=== PATIENT | male | born 1965 | race Two or more races ===

== ENCOUNTER 2019-10-12 17:48 | Inpatient (IN) | payer MEDICAID, OTHER ==
[~2019-10-12] VITALS: Ht 165.1 cm; Wt 73.9 kg
[2019-10-12 18:15] VITALS: BP 103/64
--- NOTE | 2019-10-12 18:18 | NUR ---
ED Nurse Note: Pt came in from snf accompanied by care provider d/t high blood sugar. Care provider checked his sugar at the home and the glucometer said "high." Pt is developmentally delayed, A+Ox2 @ baseline. Respirations are even and unlabored on room air. Vitals stable as documented.
[2019-10-12] MEDS ORDERED: ACTOS15 MG ORAL (18:35)
[2019-10-12] MEDS ORDERED: LEVAQUIN500 MG ORAL (18:35)
[2019-10-12] MEDS ORDERED: DEPAKOTE250 MG PO ×3 (18:35→18:38)
[2019-10-12] MEDS ORDERED: GLYBURIDE METFORMIN PO (18:35)
[2019-10-12] MEDS ORDERED: BENAZEPRIL HCL10 MG ORAL (18:35)
[2019-10-12] MEDS ORDERED: ZOLPIDEM TARTRA10 MG ORAL (18:35)
[2019-10-12] MEDS ORDERED: PRAVASTATIN SOD20 M1 ORAL (18:35)
[2019-10-12] MEDS ORDERED: KLONOPIN0.5 MG ORAL (18:35)
[2019-10-12] MEDS ORDERED: LEVOTHYROXINE75 MCG ORAL (18:38)
[2019-10-12] MEDS ORDERED: ATIVAN2 MG ORAL (18:38)
[2019-10-12] MEDS ORDERED: METFORMIN HCL1000 M1 ORAL (18:38)
--- NOTE | 2019-10-12 19:07 | NUR ---
HAND-OFF: Report given to YUN Kern. Pt in stable condition; plan of care endorsed.
--- NOTE | 2019-10-12 19:10 | NUR ---
ED Nurse Note: Recieved report from Janneth MALCOLM.
[2019-10-12 19:16] VITALS: BP 105/60
[2019-10-12 19:26] LABS: HEMATOCRIT 36.7 % (42.0-52.0); HEMOGLOBIN 12.2 G/DL (14.2-18.0); LYMPHOCYTES % (AUTO) 10.6 % (20.0-45.0); MEAN CORPUSCULAR VOLUME 91 FL (80-99); MONOCYTES % (AUTO) 17.2 % (1.0-10.0); NEUTROPHILS % (AUTO) 70.2 % (45.0-75.0); PLATELET COUNT 244 K/UL (150-450); RED BLOOD COUNT 4.04 M/UL (4.70-6.10); RED CELL DISTRIBUTION WIDTH 11.9 % (11.6-14.8); WHITE BLOOD COUNT 11.8 K/UL (4.8-10.8)
[2019-10-12 19:32] LABS: ANION GAP 15 mmol/L (5-15); BLOOD UREA NITROGEN 23 mg/dL (7-18); CALCIUM 8.4 MG/DL (8.5-10.1); CARBON DIOXIDE 22 MMOL/L (21-32); CHLORIDE 92 MMOL/L (98-107); SODIUM 129 MMOL/L (136-145)
[2019-10-12 19:37] LABS: ALANINE AMINOTRANSFERASE 37 U/L (12-78); ALBUMIN 2.1 G/DL (3.4-5.0); ALBUMIN/GLOBULIN RATIO 0.5 (1.0-2.7); ALKALINE PHOSPHATASE 46 U/L (46-116); ASPARTATE AMINO TRANSFERASE 52 U/L (15-37); BILIRUBIN,TOTAL 0.4 MG/DL (0.2-1.0)
--- NOTE | 2019-10-12 19:40 | NUR ---
ED Nurse Note: Urine collected and sent to lab.
[2019-10-12 20:19] LABS: BILIRUBIN, URINE NEGATIVE (NEGATIVE); GLUCOSE, URINE (UA) 3+ (NEGATIVE); KETONES,URINE 2+ (NEGATIVE); LEUKOCYTE ESTERASE ,URINE 1+ (NEGATIVE); NITRITE,URINE POSITIVE (NEGATIVE); PH,URINE 5 (4.5-8.0); PROTEIN,URINE 3+ (NEGATIVE); UROBILINOGEN,URINE 1 MG/DL (0.0-1.0)
--- NOTE | 2019-10-12 20:19 | NUR ---
ED Nurse Note: [phone]: Maren (caregiver) [phone]: Juan M (software administrator)
--- NOTE | 2019-10-12 20:29 | Emergency Room Report ---
History of Present Illness General Chief Complaint: Abnormal Labs Source: Patient, Medical Record Present Illness HPI This patient is accompanied by his caregiver. The patient has a history of developmental delay. He resides in a [facility]. The patient has no specific complaints. The history is obtained by the caregiver. He reports that over the past week patient has had uncontrolled blood sugars. He states that he has been to multiple urgent cares in different hospitals and will get treated with insulin and then sent back to the [facility] and the next morning his blood sugar will go up very high. There is no cough or congestion. There is been no fever or chills. There are no other obvious symptoms. The patient is developmentally delayed and cannot give a full history. However he is verbal and can express simple thoughts and answer questions. Allergies: Coded Allergies: No Known Allergies (Unverified , 10/12/19) Patient History Past Medical History: see triage record, DM, seizures, other - Developmental delay Social History: Denies: smoking, alcohol use, drug use Reviewed Nursing Documentation: PMH: Agreed; PSxH: Agreed Nursing Documentation-PMH Past Medical History: No History, Except For Hx Diabetes: Yes History Of Psychiatric Problem: Yes - anxiety Hx Seizures: Yes Review of Systems All Other Systems: negative except mentioned in HPI Physical Exam Vital Signs Date Time Temp Pulse Resp B/P (MAP) Pulse Ox O2 Delivery O2 Flow Rate FiO2 10/12/19 18:13 99.0 103 30 103/60 (74) 91 Room Air Sp02 EP Interpretation: reviewed, normal General Appearance: no apparent distress, GCS 15, non-toxic, other - sleepy but easily arousable. Head: normocephalic, atraumatic Eyes: bilateral eye normal inspection ENT: hearing grossly normal, normal pharynx, no angioedema, normal voice Neck: full range of motion, supple/symm/no masses Respiratory: chest non-tender, lungs clear, normal breath sounds, no respiratory distress, no retraction, no accessory muscle use, speaking full sentences Cardiovascular #1: regular rate, rhythm, no edema Gastrointestinal: non tender, soft, non-distended, no guarding, no rebound Rectal: deferred Musculoskeletal: back normal, normal range of motion, non-tender Neurologic: alert, motor strength/tone normal, oriented x3, sensory intact, responsive, speech normal Psychiatric: mood/affect normal, no suicidal/homicidal ideation Skin: no rash, normal color Medical Decision Making Diagnostic Impression: Primary Impression: Uncontrolled diabetes mellitus Additional Impressions: Hyperglycemia Renal failure Hyponatremia Dehydration ER Course This patient at baseline is developmental delay. He resides in a [facility] and it appears that the staff at the [facility] is not sophisticated enough to manage his diabetes. He has been in multiple urgent cares over the past week. The staff and the patient are unable to manage the diabetes as he is getting recurrent hyperglycemia. Likely there is a component of lack of medical expertise in addition to probably poor education on diet. Regardless, the patient is also in renal failure, dehydrated with uncontrolled blood sugars. I feel that at this point it has become dangerous for this patient to continue treatment as an outpatient and may need placement in a higher level facility to help manage his diabetes. He is admitted for uncontrolled diabetes, renal failure and inability to manage as an outpatient. Please see lab results in the electronic medical record. EKG Diagnostic Results Rate: tachycardiac Rhythm: other - S.tachycardia ST Segments: no acute changes Rhythm Strip Diag. Results EP Interpretation: yes Rate: 100's Rhythm: no PVC's, no ectopy, other - S.tachycardia Last Vital Signs Date Time Temp Pulse Resp B/P (MAP) Pulse Ox O2 Delivery O2 Flow Rate FiO2 10/12/19 19:16 97.8 95 20 105/60 97 Room Air Disposition: ADMITTED INPATIENT Condition: Serious Referrals: [facility],REFERRING (PCP) Magda Gilmore DO Oct 12, 2019 20:28
[2019-10-12 20:34] LABS: APPEARANCE,URINE SLIGHTLY CLOUDY; COLOR,URINE YELLOW
[2019-10-12 21:15] VITALS: BP 93/52
--- NOTE | 2019-10-12 21:25 | NUR ---
ED Nurse Note: NS 1L bolus given per ERMD written order.
[2019-10-12 23:27] VITALS: BP 99/68
--- NOTE | 2019-10-13 00:54 | NUR ---
ED Nurse Note: Report given to Gisela MALCOLM from [facility].
[2019-10-13 01:15] VITALS: BP 96/63
--- NOTE | 2019-10-13 01:15 | NUR ---
TRANSFER TO FLOOR: Patient transferred to [facility] unit. Report given to Gisela MALCOLM. Pt alert and orientedx2, verbally responsive. No SOB. Not in any distress. IV line on left AC 20g patent and intact. No skin issues. Med recon done. All belongings given to the patient.
--- NOTE | 2019-10-13 01:28 | NUR ---
NURSE NOTES: Received patient from ER, via gurney, awake, alert x 2, pleasantly confused, developmental delay noted, IV site is clean dry and intact, belongings list been reviewed, signed, items are accounted for. Admit orders are obtained from MD. patient is incontinent of both urine and stool, skin is intact, call light is within reach, bed is lowered ,locked and alarm is on. Will continue to monitor for comfort and safety.
[2019-10-13 04:00] VITALS: BP 122/85
[2019-10-13] MEDS ORDERED: Zolpidem 5mg tab ORAL PRN (04:00)
[2019-10-13] MEDS: metFORMIN 500mg tab ORAL SCH (06:04)
[2019-10-13] MEDS: NovoLOG Insulin Flexpen SUBQ SCH ×4 (06:07→20:40)
--- NOTE | 2019-10-13 07:00 | NUR ---
pt resting in bed. Awake, A/O x 1-2, calm. denies pain. tolerating diet well, no N/V, fall precaution maintained. will continue to monitor.
--- NOTE | 2019-10-13 07:42 | NUR ---
HAND-OFF: Report given to Alina MALCOLM.
[2019-10-13 08:00] VITALS: BP 122/93
[2019-10-13] MEDS ORDERED: Levofloxacin 500mg tab ORAL SCH (09:00)
--- NOTE | 2019-10-13 09:15 | Diagnostic Imaging Report ---
Indication: Dyspnea Technique: One view of the chest Comparison: none Findings: Inspiration is suboptimal. No definite acute infiltrates, effusions, congestion. There are multiple old healed rib fracture deformities bilaterally. The heart size is normal. There are fairly extensive posttraumatic changes of the left shoulder including the glenoid Impression: No acute process. Findings as noted
[2019-10-13] MEDS: clonazePAM 0.5mg tab ORAL SCH ×2 (09:16→17:55)
[2019-10-13] MEDS: Benazepril 10mg tab ORAL SCH (09:17)
[2019-10-13] MEDS: Heparin 5000 units/ml inj SUBQ SCH ×2 (09:20→20:25)
[2019-10-13 12:00] VITALS: BP 139/77
--- NOTE | 2019-10-13 14:14 | Consultation ---
History of Present Illness General Date patient seen: Oct 13, 2019 Chief Complaint: Abnormal Labs Present Illness HPI 54 y/o M with hx of seizure disorder, developmental delay presented to ED on with uncontrolled blood sugars Denied cough, congestion, f/c Allergies: Coded Allergies: No Known Allergies (Unverified , 10/12/19) Medication History Scheduled Benazepril Hcl* (Benazepril Hcl*), 10 MG ORAL DAILY, (Reported) Clonazepam* (Klonopin*), 0.5 MG ORAL TWICE A DAY, (Reported) Divalproex Sodium* (Depakote*), 1,750 MG PO BEDTIME, (Reported) Levofloxacin* (Levaquin*), 500 MG ORAL DAILY, (Reported) Levothyroxine Sodium* (Levothyroxine Sodium*), 75 MCG ORAL DAILY, (Reported) Lorazepam* (Ativan*), 2 MG ORAL DAILY, (Reported) Metformin Hcl* (Metformin Hcl*), 1,000 MG ORAL DAILY, (Reported) Pioglitazone Hcl* (Actos*), 15 MG ORAL DAILY, (Reported) Pravastatin Sod* (Pravastatin Sod*), 20 MG ORAL BEDTIME, (Reported) [glyburide metformin], 2.5-500 MG PO TWICE A DAY, (Reported) Scheduled PRN Zolpidem Tartrate* (Zolpidem Tartrate*), 10 MG ORAL BEDTIME PRN for Insomnia, ( Reported) Discontinued Medications Divalproex Sodium* (Depakote*), 250 MG PO BEDTIME, (Reported) Discontinued Reason: Pt stopped taking med Divalproex Sodium* (Depakote*), 500 MG PO Q12HR, (Reported) Discontinued Reason: Pt stopped taking med Patient History Healthcare decision maker Resuscitation status Full Code Advanced Directive on File No Patient History Narrative Pmhx: as above Fhx: non contributory Sx: Denies: smoking, alcohol use, drug use Review of Systems All Other Systems: negative except mentioned in HPI Physical Exam Physical Exam Narrative General Appearance: no apparent distress Head: normocephalic, atraumatic Eyes: bilateral eye normal inspection ENT: hearing grossly normal, normal pharynx, no angioedema, normal voice Neck: full range of motion, supple/symm/no masses Respiratory: chest non-tender, lungs clear, normal breath sounds, no respiratory distress, no retraction, no accessory muscle use, speaking full sentences Cardiovascular regular rate, rhythm, no edema Gastrointestinal: non tender, soft, non-distended, no guarding, no rebound Musculoskeletal: back normal, normal range of motion, non-tender Neurologic: alert, motor strength/tone normal, oriented x3, sensory intact, responsive, speech normal Skin: no rash, normal color Last 24 Hour Vital Signs Date Time Temp Pulse Resp B/P (MAP) Pulse Ox O2 Delivery O2 Flow Rate FiO2 10/13/19 12:00 99.2 96 20 139/77 (97) 96 10/13/19 09:17 122/93 10/13/19 09:00 Room Air 10/13/19 08:00 98.9 100 20 122/93 (103) 98 10/13/19 04:00 99.0 86 20 122/85 (97) 98 10/13/19 01:28 Room Air 10/13/19 01:15 97.6 95 26 96/63 97 Room Air 10/13/19 01:15 97.6 95 26 96/63 97 Room Air 10/12/19 23:27 97.6 92 18 99/68 98 Room Air 10/12/19 21:15 98.2 86 19 93/52 97 Room Air 10/12/19 19:16 97.8 95 20 105/60 97 Room Air 10/12/19 18:15 98.0 102 20 103/64 92 Room Air 10/12/19 18:13 99.0 103 30 103/60 (74) 91 Room Air Intake and Output 10/12/19 10/13/19 19:00 07:00 Intake Total 0 ml 2000 ml Balance 0 ml 2000 ml Intake Oral 0 ml IV Total 2000 ml Laboratory Tests Test 10/12/19 18:45 10/12/19 19:49 White Blood Count 11.8 K/UL (4.8-10.8) H Red Blood Count 4.04 M/UL (4.70-6.10) L Hemoglobin 12.2 G/DL (14.2-18.0) L Hematocrit 36.7 % (42.0-52.0) L Mean Corpuscular Volume 91 FL (80-99) Mean Corpuscular Hemoglobin 30.3 PG (27.0-31.0) Mean Corpuscular Hemoglobin Concent 33.4 G/DL (32.0-36.0) Red Cell Distribution Width 11.9 % (11.6-14.8) Platelet Count 244 K/UL (150-450) Mean Platelet Volume 6.9 FL (6.5-10.1) Neutrophils (%) (Auto) 70.2 % (45.0-75.0) Lymphocytes (%) (Auto) 10.6 % (20.0-45.0) L Monocytes (%) (Auto) 17.2 % (1.0-10.0) H Eosinophils (%) (Auto) 0.0 % (0.0-3.0) Basophils (%) (Auto) 2.0 % (0.0-2.0) Sodium Level 129 MMOL/L (136-145) L Potassium Level 4.0 MMOL/L (3.5-5.1) Chloride Level 92 MMOL/L (98-107) L Carbon Dioxide Level 22 MMOL/L (21-32) Anion Gap 15 mmol/L (5-15) Blood Urea Nitrogen 23 mg/dL (7-18) H Creatinine 2.0 MG/DL (0.55-1.30) H Estimat Glomerular Filtration Rate 34.9 mL/min (>60) Glucose Level 471 MG/DL (74-106) H Calcium Level 8.4 MG/DL (8.5-10.1) L Magnesium Level 1.6 MG/DL (1.8-2.4) L Total Bilirubin 0.4 MG/DL (0.2-1.0) Aspartate Amino Transf (AST/SGOT) 52 U/L (15-37) H Alanine Aminotransferase (ALT/SGPT) 37 U/L (12-78) Alkaline Phosphatase 46 U/L (46-116) Total Protein 6.6 G/DL (6.4-8.2) Albumin 2.1 G/DL (3.4-5.0) L Globulin 4.5 g/dL Albumin/Globulin Ratio 0.5 (1.0-2.7) L Acetone Level Negative (NEGATIVE) Urine Color Yellow Urine Appearance Slightly cloudy Urine pH 5 (4.5-8.0) Urine Specific [place] 1.015 (1.005-1.035) Urine Protein 3+ (NEGATIVE) H Urine Glucose (UA) 3+ (NEGATIVE) H Urine Ketones 2+ (NEGATIVE) H Urine Blood 4+ (NEGATIVE) H Urine Nitrite Positive (NEGATIVE) H Urine Bilirubin Negative (NEGATIVE) Urine Urobilinogen 1 MG/DL (0.0-1.0) H Urine Leukocyte Esterase 1+ (NEGATIVE) H Urine RBC 5-10 /HPF (0 - 0) H Urine WBC 2-4 /HPF (0 - 0) Urine Squamous Epithelial Cells None /LPF (NONE/OCC) Urine Bacteria Moderate /HPF (NONE) H Microbiology Date/Time Source Procedure Growth Status 10/12/19 20:18 Rectum Received Height (Feet): 5 Height (Inches): 5.00 Weight (Pounds): 170 Medications Current Medications Medications (Trade) Dose Ordered Sig/Kelly Route PRN Reason Start Time Stop Time Status Last Admin Dose Admin Benazepril HCl (Lotensin) 10 mg DAILY ORAL 10/13/19 09:00 11/12/19 08:59 10/13/19 09:17 Clonazepam (KlonoPIN) 0.5 mg TWICE A DAY ORAL 10/13/19 09:00 10/20/19 08:59 10/13/19 09:16 Dextrose (Dextrose 50%) 25 ml Q30M PRN IV Hypoglycemia 10/13/19 04:00 11/12/19 03:59 Dextrose (Dextrose 50%) 50 ml Q30M PRN IV Hypoglycemia 10/13/19 04:00 11/12/19 03:59 Divalproex Sodium (Depakote) 1,750 mg BEDTIME ORAL 10/13/19 21:00 11/12/19 20:59 Heparin Sodium (Porcine) (Heparin 5000 units/ml) 5,000 units EVERY 12 HOURS SUBQ 10/13/19 09:00 11/12/19 08:59 10/13/19 09:20 Insulin Aspart (NovoLOG) BEFORE MEALS AND HS SUBQ 10/13/19 06:30 11/12/19 06:29 10/13/19 12:37 Levothyroxine Sodium (Synthroid) 75 mcg ACBREAKFAST ORAL 10/13/19 06:30 11/12/19 06:29 10/13/19 06:04 Metformin HCl (Glucophage) 1,000 mg ACBREAKFAST ORAL 10/13/19 06:30 11/12/19 06:29 10/13/19 06:04 Pioglitazone HCl (Actos) 15 mg DAILY ORAL 10/13/19 09:00 11/12/19 08:59 10/13/19 09:16 Pravastatin Sodium (Pravachol) 20 mg BEDTIME ORAL 10/13/19 21:00 11/12/19 20:59 Zolpidem Tartrate (Ambien) 5 mg BEDTIME PRN ORAL Insomnia 10/13/19 04:00 10/20/19 03:59 Assessment/Plan Assessment/Plan: Abx: None Assessment: Afebrile Mild leukocytosis, ?UTI -u/a wbc 2-4, nit +, leuk +1 -CXR: No acute process Hyperglycemia OCTAVIA vs CKD seizure disorder developmental delay Plan: -Start empiric Ceftriaxone #1 for probable UTI -f/u cx -Monitor CBC/CMP, temperatures -aspiration precautions Thank you for this consultation. Will continue to follow along with you. Discussed with Roxana Macias M.D. Oct 13, 2019 14:13
[2019-10-13] MEDS: cefTRIAXone 1 GM in D5W 55 ML IVPB SCH (15:41)
[2019-10-13 16:00] VITALS: BP 131/74
--- NOTE | 2019-10-13 16:07 | NUR ---
CASE MANAGEMENT:INITIAL REVIEW 54 YR OLD MALE BIBA FROM HOME CC;ABNORMAL LABS SI;UNCONTROLLED DM. HYPERGLYCEMIA. 97.6 95 26 96/63 97% RA WBC 11.8 NA 129 BUN 23 CREAT 2.0 AST 52 CXR - NO ACUTE PROCESS UA = PROTEIN 3+, GLUC 3+, KETONES 2+, BLD 4+, NITRITE +, RBC 5-10 UA BACTERIA=MODERATE IS;NS BOLUS X1 ADMITTED TO [facility] DCP;HOME
--- NOTE | 2019-10-13 16:54 | NUR ---
pts temp 102.2F left message to DR. Hoffman, waiting for call back.
[2019-10-13 20:00] VITALS: BP 119/71
--- NOTE | 2019-10-13 23:24 | History & Physical ---
History and Physical History & Physicial Ankush Hoffman MD Oct 13, 2019 23:24
[2019-10-14] VITALS: BP 124/70
--- NOTE | 2019-10-14 00:45 | History and Physical Report ---
DATE OF ADMISSION: 10/13/2019 CHIEF COMPLAINT: Uncontrolled glucose. HISTORY OF PRESENT ILLNESS: This is a 54-year-old gentleman with past medical history significant for seizure disorder, hypothyroidism, diabetes type 2, chronic kidney disease with proteinuria, and developmental delay, who presented to the hospital from a group house due to elevated glucose level. The patient was noted for the past week he has been having uncontrolled blood glucose level and multiple urgent care in different hospitals where he got treated with insulin and then go back to the half-way and this morning the patient was noted to have the blood glucose level very high and subsequently the patient was brought into the emergency department. Shortly after initial evaluation in the emergency department, the patient was admitted to the hospital with uncontrolled diabetes and possible urinary tract infection. The patient denies any fever or chills. Denies any nausea or vomiting. Denies any loss of consciousness. PAST MEDICAL HISTORY/PAST SURGICAL HISTORY: As above, history of diabetes type 2, seizure disorder, developmental delay, hypothyroidism, proteinuria, and chronic kidney disease. MEDICATIONS: At home, please refer to medication reconciliation. ALLERGIES: No known drug allergies. SOCIAL HISTORY: No smoking, alcohol, or drugs at this time. FAMILY HISTORY: Noncontributory. REVIEW OF SYSTEMS: Mostly as above. PHYSICAL EXAMINATION: VITAL SIGNS: On admission, temperature 99, pulse of 103, respirations 30, and blood pressure 103/60. GENERAL: The patient is awake and responsive, in no acute distress. HEAD AND NECK: Pupils are equal and reactive to light. Extraocular muscles intact. Neck was supple. No JVD. LUNGS: Good air entry with no wheezing or rales. HEART: S1, S2. Distant heart sounds. No gallops. ABDOMEN: Soft, nondistended, and nontender. Mildly obese. EXTREMITIES: No cyanosis, clubbing, or edema NEUROLOGIC: Cranial nerves II through XII grossly grossly intact. Motor is 5/5 in all extremities. Gait was not assessed due to the patient's status. RECTAL: Refused and deferred. GENITOURINARY: Refused and deferred. PSYCHIATRIC: Mood and affect is calm. LABORATORY DATA: On admission from the emergency department, WBC of 11, hemoglobin of 12, hematocrit 36, and platelets 241,000. Sodium 129, potassium 4.0, chloride 92, bicarb 22, BUN 23, and creatinine 2.0. GFR is 34. Glucose elevated at 471. Magnesium 1.6. Calcium is 8.4. Albumin is 2.1. Urinalysis, +3 protein, +3 glucose, +2 ketone, positive nitrite, +1 leukocytes, 5 to 10 rbc's, moderate bacteria in urine. Acetaminophen level is negative. Chest x-ray, no acute process. ASSESSMENT: 1. Uncontrolled diabetes type 2, possible due to underlying infection such as urinary tract infection. 2. Acute urinary tract infection. 3. Dehydration. 4. Acute kidney injury on chronic renal insufficiency. 5. Proteinuria. 6. Developmental delay. 7. Hypothyroidism. 8. Seizure disorder. 9. Morbid obesity. PLAN: 1. Admit the patient to the medical floor. 2. Start the patient on IV hydration. 3. Accu-Chek with sliding scale. 4. Monitor laboratory. 5. Broad spectrum antibiotic with Rocephin. Follow up with culture. 6. DVT prophylaxis with heparin subcutaneous. 7. We will follow up with the ID consultation with Dr. Gutierrez. Ankush Hoffman M.D. DR: JEROD JOB#: [id number] CC:
[2019-10-14 04:00] VITALS: BP 104/66
[2019-10-14] MEDS: metFORMIN 500mg tab ORAL SCH (05:45)
[2019-10-14] MEDS: NovoLOG Insulin Flexpen SUBQ SCH ×4 (05:46→23:27)
--- NOTE | 2019-10-14 07:08 | NUR ---
NURSE NOTES: RECEIVED REPORT FROM YUN SANDRA TRANSFERRED FROM [facility]. RECEIVED PATIENT A/A/OX2, HAS DELAYED RESPONSE. PERSONAL BELONGINGS NOTED. SKIN ASSESSED AND DISCOVER SKIN BREAKDOWN ON SACRAL STAGE 2, PHOTO TAKEN AND UPLOADED. INITIAL TREATMENT RENDERED. SKIN IS INTACT ON BILATERAL HEELS. PATIENT IS ABLE TO FOLLOW COMMANDS. IV ACCESS PATENT AND INTACT. PATIENT ABLE TO TURN/REPOSITION WITH ASSISTANCE. KEPT BED IN THE LOWEST POSITION, SIDERAILS ARE UP X3, BED ALARM ENGAGED AND LOCKED. CALL LIGHT IS WITHIN REACH. WILL CONT TO MONITOR. Addendum: 10/14/19 at 1619 by MER SCALES LVN NURSE NOTES: INFORMED PMD. Addendum: 10/14/19 at 1656 by MER SCALES LVN SIDERAILS ARE PADDED X4 FOR SEIZURE PRECAUTIONS.
--- NOTE | 2019-10-14 07:16 | NUR ---
NURSE NOTES: Patient is transferred to [facility] report is given to Allison TIN CAN LABORER, temp is 99.0, no acute distress noted, belongings list signed.
[2019-10-14 08:00] LABS: BASOPHILS % (AUTO) 0.5 % (0.0-2.0); HEMATOCRIT 32.5 % (42.0-52.0); HEMOGLOBIN 11.5 G/DL (14.2-18.0); LYMPHOCYTES % (AUTO) 14.3 % (20.0-45.0); MEAN CORPUSCULAR VOLUME 87 FL (80-99); MONOCYTES % (AUTO) 10.1 % (1.0-10.0); NEUTROPHILS % (AUTO) 75.1 % (45.0-75.0); PLATELET COUNT 208 K/UL (150-450); RED BLOOD COUNT 3.72 M/UL (4.70-6.10); RED CELL DISTRIBUTION WIDTH 11.5 % (11.6-14.8)
[2019-10-14 08:02] VITALS: BP 92/53
[2019-10-14] MEDS: Benazepril 10mg tab ORAL SCH (08:05)
[2019-10-14] MEDS: clonazePAM 0.5mg tab ORAL SCH ×2 (08:05→17:07)
[2019-10-14] MEDS: Heparin 5000 units/ml inj SUBQ SCH ×2 (08:09→23:20)
[2019-10-14 08:22] LABS: ALANINE AMINOTRANSFERASE 33 U/L (12-78); ALBUMIN 1.8 G/DL (3.4-5.0); ALBUMIN/GLOBULIN RATIO 0.4 (1.0-2.7); ALKALINE PHOSPHATASE 42 U/L (46-116); ANION GAP 7 mmol/L (5-15); ASPARTATE AMINO TRANSFERASE 50 U/L (15-37); BILIRUBIN,TOTAL 0.3 MG/DL (0.2-1.0); BLOOD UREA NITROGEN 13 mg/dL (7-18); CARBON DIOXIDE 28 MMOL/L (21-32); CHLORIDE 99 MMOL/L (98-107); PHOSPHORUS 2.5 MG/DL (2.5-4.9); POTASSIUM 3.6 MMOL/L (3.5-5.1); SODIUM 134 MMOL/L (136-145)
[2019-10-14] MEDS: cefTRIAXone 1 GM in D5W 55 ML IVPB SCH (08:57)
--- NOTE | 2019-10-14 09:12 | Pulmonology Progress Note ---
Assessment/Plan Problems: (1) UTI (urinary tract infection) (2) Renal failure (3) Uncontrolled diabetes mellitus Assessment/Plan bs better check cultures iv fluids check electrolytes Subjective ROS Limited/Unobtainable: No Allergies: Coded Allergies: No Known Allergies (Unverified , 10/12/19) Objective Last 24 Hour Vital Signs Date Time Temp Pulse Resp B/P (MAP) Pulse Ox O2 Delivery O2 Flow Rate FiO2 10/14/19 08:57 Room Air 10/14/19 08:05 92/53 10/14/19 08:02 99.1 75 18 92/53 (66) 92 10/14/19 07:16 99.0 10/14/19 04:00 103.0 100 21 104/66 (79) 98 10/14/19 00:00 99.0 90 20 124/70 (88) 98 10/13/19 21:37 Room Air 10/13/19 20:00 99.0 98 20 119/71 (87) 98 10/13/19 16:00 102.2 99 20 131/74 (93) 97 10/13/19 12:00 99.2 96 20 139/77 (97) 96 10/13/19 09:17 122/93 Intake and Output 10/13/19 10/14/19 19:00 07:00 Intake Total 600 ml Balance 600 ml Intake Oral 600 ml # Voids 4 General Appearance: WD/WN HEENT: normocephalic, atraumatic Respiratory/Chest: chest wall non-tender, lungs clear Cardiovascular: normal peripheral pulses, normal rate Abdomen: normal bowel sounds, soft, non tender Genitourinary: normal external genitalia Neurologic/Psychiatric: no motor/sensory deficits Microbiology Date/Time Source Procedure Growth Status 10/12/19 19:49 Urine,Clean Catch Urine Culture - Preliminary Gram Negative Abhishek Resulted 10/12/19 20:18 Rectum Received Laboratory Tests 10/14/19 05:30: White Blood Count 14.0H, Red Blood Count 3.72L, Hemoglobin 11.5L, Hematocrit 32.5L, Mean Corpuscular Volume 87, Mean Corpuscular Hemoglobin 31.0, Mean Corpuscular Hemoglobin Concent 35.5, Red Cell Distribution Width 11.5L, Platelet Count 208, Mean Platelet Volume 7.3, Neutrophils (%) (Auto) 75.1H, Lymphocytes (%) (Auto) 14.3L, Monocytes (%) (Auto) 10.1H, Eosinophils (%) (Auto ) 0.0, Basophils (%) (Auto) 0.5, Erythrocyte Sedimentation Rate [Pending], Sodium Level 134L, Potassium Level 3.6, Chloride Level 99, Carbon Dioxide Level 28, Anion Gap 7, Blood Urea Nitrogen 13, Creatinine 1.0, Estimat Glomerular Filtration Rate > 60, Glucose Level 185#H, Calcium Level 8.0L, Phosphorus Level 2.5, Magnesium Level 1.5L, Total Bilirubin 0.3, Aspartate Amino Transf (AST/SGOT ) 50H, Alanine Aminotransferase (ALT/SGPT) 33, Alkaline Phosphatase 42L, C- Reactive Protein, Quantitative 19.4H, Total Protein 6.0L, Albumin 1.8L, Globulin 4.2, Albumin/Globulin Ratio 0.4L Current Medications Medications (Trade) Dose Ordered Sig/Kelly Route PRN Reason Start Time Stop Time Status Last Admin Dose Admin Acetaminophen (Tylenol) 650 mg Q6H PRN ORAL Mild Pain/Temp > 100.5 10/14/19 06:00 11/13/19 05:59 10/14/19 06:22 Benazepril HCl (Lotensin) 10 mg DAILY ORAL 10/13/19 09:00 11/12/19 08:59 10/13/19 09:17 Ceftriaxone Sodium 1 gm/ Dextrose 55 ml @ 110 mls/hr DAILY IVPB 10/13/19 16:00 10/20/19 15:59 10/14/19 08:57 Clonazepam (KlonoPIN) 0.5 mg TWICE A DAY ORAL 10/13/19 09:00 10/20/19 08:59 10/14/19 08:05 Dextrose (Dextrose 50%) 25 ml Q30M PRN IV Hypoglycemia 10/13/19 04:00 11/12/19 03:59 Dextrose (Dextrose 50%) 50 ml Q30M PRN IV Hypoglycemia 10/13/19 04:00 11/12/19 03:59 Divalproex Sodium (Depakote) 1,750 mg BEDTIME ORAL 10/13/19 21:00 11/12/19 20:59 10/13/19 20:24 Heparin Sodium (Porcine) (Heparin 5000 units/ml) 5,000 units EVERY 12 HOURS SUBQ 10/13/19 09:00 11/12/19 08:59 10/14/19 08:09 Insulin Aspart (NovoLOG) BEFORE MEALS AND HS SUBQ 10/13/19 06:30 11/12/19 06:29 10/14/19 05:46 Levothyroxine Sodium (Synthroid) 75 mcg ACBREAKFAST ORAL 10/13/19 06:30 11/12/19 06:29 10/14/19 05:45 Metformin HCl (Glucophage) 1,000 mg ACBREAKFAST ORAL 10/13/19 06:30 11/12/19 06:29 10/14/19 05:45 Pioglitazone HCl (Actos) 15 mg DAILY ORAL 10/13/19 09:00 11/12/19 08:59 10/14/19 08:12 Pravastatin Sodium (Pravachol) 20 mg BEDTIME ORAL 10/13/19 21:00 11/12/19 20:59 10/13/19 20:23 Zolpidem Tartrate (Ambien) 5 mg BEDTIME PRN ORAL Insomnia 10/13/19 04:00 10/20/19 03:59 Thomas Velarde MD Oct 14, 2019 09:12
[2019-10-14 12:00] VITALS: BP 100/59
--- NOTE | 2019-10-14 13:39 | General Progress Note ---
Assessment/Plan Problem List: (1) Hypothyroid ICD Codes: E03.9 - Hypothyroidism, unspecified SNOMED: 60982300 (2) Hyperglycemia ICD Codes: R73.9 - Hyperglycemia, unspecified SNOMED: 69407065 (3) Uncontrolled diabetes mellitus ICD Codes: E11.65 - Type 2 diabetes mellitus with hyperglycemia SNOMED: 64277155, 957213708 Assessment/Plan: add Januvia 100 mg daily add Starlix 60 mg ac tid continue Metformin as is continue NISS ac / hs check thyroid function and A1c Subjective Allergies: Coded Allergies: No Known Allergies (Unverified , 10/12/19) Subjective events noted glucose values improved Item Value Date Time Bedside Blood Glucose 141 mg/dl H 10/14/19 1220 Bedside Blood Glucose 179 mg/dl H 10/14/19 0546 Bedside Blood Glucose 282 mg/dl H 10/13/19 2040 Bedside Blood Glucose 211 mg/dl H 10/13/19 1718 Bedside Blood Glucose 153 mg/dl H 10/13/19 1237 Objective Last 24 Hour Vital Signs Date Time Temp Pulse Resp B/P (MAP) Pulse Ox O2 Delivery O2 Flow Rate FiO2 10/14/19 12:00 98.1 77 18 100/59 (73) 93 10/14/19 08:57 Room Air 10/14/19 08:05 92/53 10/14/19 08:02 99.1 75 18 92/53 (66) 92 10/14/19 07:16 99.0 10/14/19 04:00 103.0 100 21 104/66 (79) 98 10/14/19 00:00 99.0 90 20 124/70 (88) 98 10/13/19 21:37 Room Air 10/13/19 20:00 99.0 98 20 119/71 (87) 98 10/13/19 16:00 102.2 99 20 131/74 (93) 97 Intake and Output 10/13/19 10/14/19 19:00 07:00 Intake Total 600 ml Balance 600 ml Intake Oral 600 ml # Voids 4 Laboratory Tests 10/14/19 05:30: White Blood Count 14.0H, Red Blood Count 3.72L, Hemoglobin 11.5L, Hematocrit 32.5L, Mean Corpuscular Volume 87, Mean Corpuscular Hemoglobin 31.0, Mean Corpuscular Hemoglobin Concent 35.5, Red Cell Distribution Width 11.5L, Platelet Count 208, Mean Platelet Volume 7.3, Neutrophils (%) (Auto) 75.1H, Lymphocytes (%) (Auto) 14.3L, Monocytes (%) (Auto) 10.1H, Eosinophils (%) (Auto ) 0.0, Basophils (%) (Auto) 0.5, Erythrocyte Sedimentation Rate 36H, Sodium Level 134L, Potassium Level 3.6, Chloride Level 99, Carbon Dioxide Level 28, Anion Gap 7, Blood Urea Nitrogen 13, Creatinine 1.0, Estimat Glomerular Filtration Rate > 60, Glucose Level 185#H, Calcium Level 8.0L, Phosphorus Level 2.5, Magnesium Level 1.5L, Total Bilirubin 0.3, Aspartate Amino Transf (AST/SGOT ) 50H, Alanine Aminotransferase (ALT/SGPT) 33, Alkaline Phosphatase 42L, C- Reactive Protein, Quantitative 19.4H, Total Protein 6.0L, Albumin 1.8L, Globulin 4.2, Albumin/Globulin Ratio 0.4L Height (Feet): 5 Height (Inches): 5.00 Weight (Pounds): 170 General Appearance: no apparent distress Neck: normal alignment Cardiovascular: normal rate Respiratory/Chest: lungs clear Abdomen: normal bowel sounds Pelvis: normal external exam Objective Current Medications Medications (Trade) Dose Ordered Sig/Kelly Route PRN Reason Start Time Stop Time Status Last Admin Dose Admin Acetaminophen (Tylenol) 650 mg Q6H PRN ORAL Mild Pain/Temp > 100.5 10/14/19 06:00 11/13/19 05:59 10/14/19 06:22 Benazepril HCl (Lotensin) 10 mg DAILY ORAL 10/13/19 09:00 11/12/19 08:59 10/13/19 09:17 Ceftriaxone Sodium 1 gm/ Dextrose 55 ml @ 110 mls/hr DAILY IVPB 10/13/19 16:00 10/20/19 15:59 10/14/19 08:57 Clonazepam (KlonoPIN) 0.5 mg TWICE A DAY ORAL 10/13/19 09:00 10/20/19 08:59 10/14/19 08:05 Dextrose (Dextrose 50%) 25 ml Q30M PRN IV Hypoglycemia 10/13/19 04:00 11/12/19 03:59 Dextrose (Dextrose 50%) 50 ml Q30M PRN IV Hypoglycemia 10/13/19 04:00 11/12/19 03:59 Divalproex Sodium (Depakote) 1,750 mg BEDTIME ORAL 10/13/19 21:00 11/12/19 20:59 10/13/19 20:24 Heparin Sodium (Porcine) (Heparin 5000 units/ml) 5,000 units EVERY 12 HOURS SUBQ 10/13/19 09:00 11/12/19 08:59 10/14/19 08:09 Insulin Aspart (NovoLOG) BEFORE MEALS AND HS SUBQ 10/13/19 06:30 11/12/19 06:29 10/14/19 12:20 Levothyroxine Sodium (Synthroid) 75 mcg ACBREAKFAST ORAL 10/13/19 06:30 11/12/19 06:29 10/14/19 05:45 Metformin HCl (Glucophage) 1,000 mg ACBREAKFAST ORAL 10/13/19 06:30 11/12/19 06:29 10/14/19 05:45 Pioglitazone HCl (Actos) 15 mg DAILY ORAL 10/13/19 09:00 11/12/19 08:59 10/14/19 08:12 Pravastatin Sodium (Pravachol) 20 mg BEDTIME ORAL 10/13/19 21:00 11/12/19 20:59 10/13/19 20:23 Zolpidem Tartrate (Ambien) 5 mg BEDTIME PRN ORAL Insomnia 10/13/19 04:00 10/20/19 03:59 Prosper Boateng MD Oct 14, 2019 13:39
[2019-10-14 15:53] VITALS: BP 99/67
[2019-10-14] MEDS: Nateglinide 60mg tab ORAL SCH (17:07)
--- NOTE | 2019-10-14 18:15 | Internal Med Progress Note ---
Subjective Date of Service: Oct 14, 2019 Physician Name Reynold Burton Attending Physician Ankush Hoffman MD Current Medications Medications (Trade) Dose Ordered Sig/Kelly Route PRN Reason Start Time Stop Time Status Last Admin Dose Admin Acetaminophen (Tylenol) 650 mg Q6H PRN ORAL Mild Pain/Temp > 100.5 10/14/19 06:00 11/13/19 05:59 10/14/19 06:22 Benazepril HCl (Lotensin) 10 mg DAILY ORAL 10/13/19 09:00 11/12/19 08:59 10/13/19 09:17 Ceftriaxone Sodium 1 gm/ Dextrose 55 ml @ 110 mls/hr DAILY IVPB 10/13/19 16:00 10/20/19 15:59 10/14/19 08:57 Clonazepam (KlonoPIN) 0.5 mg TWICE A DAY ORAL 10/13/19 09:00 10/20/19 08:59 10/14/19 17:07 Dextrose (Dextrose 50%) 25 ml Q30M PRN IV Hypoglycemia 10/13/19 04:00 11/12/19 03:59 Dextrose (Dextrose 50%) 50 ml Q30M PRN IV Hypoglycemia 10/13/19 04:00 11/12/19 03:59 Divalproex Sodium (Depakote) 1,750 mg BEDTIME ORAL 10/13/19 21:00 11/12/19 20:59 10/13/19 20:24 Heparin Sodium (Porcine) (Heparin 5000 units/ml) 5,000 units EVERY 12 HOURS SUBQ 10/13/19 09:00 11/12/19 08:59 10/14/19 08:09 Insulin Aspart (NovoLOG) BEFORE MEALS AND HS SUBQ 10/13/19 06:30 11/12/19 06:29 10/14/19 12:20 Levothyroxine Sodium (Synthroid) 75 mcg ACBREAKFAST ORAL 10/13/19 06:30 11/12/19 06:29 10/14/19 05:45 Metformin HCl (Glucophage) 1,000 mg ACBREAKFAST ORAL 10/13/19 06:30 11/12/19 06:29 10/14/19 05:45 Nateglinide (Starlix) 60 mg TIAC ORAL 10/14/19 16:30 11/13/19 16:29 10/14/19 17:07 Pioglitazone HCl (Actos) 15 mg DAILY ORAL 10/13/19 09:00 11/12/19 08:59 10/14/19 08:12 Pravastatin Sodium (Pravachol) 20 mg BEDTIME ORAL 10/13/19 21:00 11/12/19 20:59 10/13/19 20:23 Sitagliptin Phosphate (Januvia) 100 mg ACBREAKFAST ORAL 10/14/19 13:45 11/13/19 13:44 10/14/19 14:33 Zolpidem Tartrate (Ambien) 5 mg BEDTIME PRN ORAL Insomnia 10/13/19 04:00 10/20/19 03:59 Allergies: Coded Allergies: No Known Allergies (Unverified , 10/12/19) ROS Limited/Unobtainable: No Constitutional: Reports: no symptoms HEENT: Reports: no symptoms Cardiovascular: Reports: no symptoms Respiratory: Reports: no symptoms Gastrointestinal/Abdominal: Reports: no symptoms Genitourinary: Reports: no symptoms Neurologic/Psychiatric: Reports: no symptoms Subjective 54 YO M admitted with uncontrolled diabetes, now UTI. Cover for Int Ramesh-Dr Hoffman Objective Last Vital Signs Date Time Temp Pulse Resp B/P (MAP) Pulse Ox O2 Delivery O2 Flow Rate FiO2 10/14/19 15:53 97.9 89 20 99/67 (78) 94 10/14/19 08:57 Room Air Laboratory Tests Test 10/14/19 05:30 10/14/19 05:50 White Blood Count 14.0 K/UL (4.8-10.8) H Red Blood Count 3.72 M/UL (4.70-6.10) L Hemoglobin 11.5 G/DL (14.2-18.0) L Hematocrit 32.5 % (42.0-52.0) L Mean Corpuscular Volume 87 FL (80-99) Mean Corpuscular Hemoglobin 31.0 PG (27.0-31.0) Mean Corpuscular Hemoglobin Concent 35.5 G/DL (32.0-36.0) Red Cell Distribution Width 11.5 % (11.6-14.8) L Platelet Count 208 K/UL (150-450) Mean Platelet Volume 7.3 FL (6.5-10.1) Neutrophils (%) (Auto) 75.1 % (45.0-75.0) H Lymphocytes (%) (Auto) 14.3 % (20.0-45.0) L Monocytes (%) (Auto) 10.1 % (1.0-10.0) H Eosinophils (%) (Auto) 0.0 % (0.0-3.0) Basophils (%) (Auto) 0.5 % (0.0-2.0) Erythrocyte Sedimentation Rate 36 MM/HR (0-20) H Sodium Level 134 MMOL/L (136-145) L Potassium Level 3.6 MMOL/L (3.5-5.1) Chloride Level 99 MMOL/L (98-107) Carbon Dioxide Level 28 MMOL/L (21-32) Anion Gap 7 mmol/L (5-15) Blood Urea Nitrogen 13 mg/dL (7-18) Creatinine 1.0 MG/DL (0.55-1.30) Estimat Glomerular Filtration Rate > 60 mL/min (>60) Glucose Level 185 MG/DL (74-106) #H Calcium Level 8.0 MG/DL (8.5-10.1) L Phosphorus Level 2.5 MG/DL (2.5-4.9) Magnesium Level 1.5 MG/DL (1.8-2.4) L Total Bilirubin 0.3 MG/DL (0.2-1.0) Aspartate Amino Transf (AST/SGOT) 50 U/L (15-37) H Alanine Aminotransferase (ALT/SGPT) 33 U/L (12-78) Alkaline Phosphatase 42 U/L (46-116) L C-Reactive Protein, Quantitative 19.4 mg/dL (0.00-0.90) H Total Protein 6.0 G/DL (6.4-8.2) L Albumin 1.8 G/DL (3.4-5.0) L Globulin 4.2 g/dL Albumin/Globulin Ratio 0.4 (1.0-2.7) L Hemoglobin A1c 11.4 % (4.3-6.0) H Thyroid Stimulating Hormone (TSH) 1.412 uiU/mL (0.358-3.740) Free Thyroxine 1.05 NG/DL (0.76-1.46) Microbiology Date/Time Source Procedure Growth Status 10/12/19 19:49 Urine,Clean Catch Urine Culture - Preliminary Gram Negative Abhishek Resulted 10/12/19 20:18 Rectum Received Intake and Output 10/13/19 10/14/19 19:00 07:00 Intake Total 600 ml Balance 600 ml Intake Oral 600 ml # Voids 4 Objective PHYSICAL EXAMINATION: GENERAL: The patient is awake and responsive, in no acute distress. HEAD AND NECK: Pupils are equal and reactive to light. Extraocular muscles intact. Neck was supple. No JVD. LUNGS: Good air entry with no wheezing or rales. HEART: S1, S2. Distant heart sounds. No gallops. ABDOMEN: Soft, nondistended, and nontender. Mildly obese. EXTREMITIES: No cyanosis, clubbing, or edema NEUROLOGIC: Cranial nerves II through XII grossly grossly intact. Motor is 5/5 in all extremities. Gait was not assessed due to the patient's status. RECTAL: Refused and deferred. GENITOURINARY: Refused and deferred. PSYCHIATRIC: Mood and affect is calm. Assessment/Plan Assessment/Plan ASSESSMENT: 1. Uncontrolled diabetes type 2, possible due to underlying infection such as urinary tract infection. 2. urinary tract infection=gram neg abhishek 3. Dehydration. 4. Acute kidney injury on chronic renal insufficiency. 5. Proteinuria. 6. Developmental delay. 7. Hypothyroidism. 8. Seizure disorder. 9. Morbid obesity. PLAN: 1. Admit the patient to the medical floor. 2. Start the patient on IV hydration. 3. Accu-Chek with sliding scale. 4. Monitor laboratory. 5. antibiotic=Rocephin. Follow up with culture. 6. DVT prophylaxis with heparin subcutaneous. 7. We will follow up with the ID consultation with Dr. Gutierrez. Reynold Burton MD Oct 14, 2019 18:15
--- NOTE | 2019-10-14 19:06 | NUR ---
HAND-OFF: Report given to Pio.
--- NOTE | 2019-10-14 19:16 | Infectious Diseases Prog Note ---
Assessment/Plan Assessment/Plan Assessment: Fever, new Mild leukocytosis, uptrending ?UTI -u/a wbc 2-4, nit +, leuk +1 -CXR: No acute process r/o bacteremia bcx: P Hyperglycemia OCTAVIA vs CKD seizure disorder developmental delay Plan: change Ceftriaxone to Zosyn pending cx -f/u cx -Monitor CBC/CMP, temperatures -aspiration precautions Thank you for this consultation. Will continue to follow along with you. Subjective Allergies: Coded Allergies: No Known Allergies (Unverified , 10/12/19) Subjective Febrile. Leukocytosis. Smiling. Objective Vital Signs Last 24 Hour Vital Signs Date Time Temp Pulse Resp B/P (MAP) Pulse Ox O2 Delivery O2 Flow Rate FiO2 10/14/19 15:53 97.9 89 20 99/67 (78) 94 10/14/19 12:00 98.1 77 18 100/59 (73) 93 10/14/19 08:57 Room Air 10/14/19 08:05 92/53 10/14/19 08:02 99.1 75 18 92/53 (66) 92 10/14/19 07:16 99.0 10/14/19 04:00 103.0 100 21 104/66 (79) 98 10/14/19 00:00 99.0 90 20 124/70 (88) 98 10/13/19 21:37 Room Air 10/13/19 20:00 99.0 98 20 119/71 (87) 98 Height (Feet): 5 Height (Inches): 5.00 Weight (Pounds): 170 Objective Gen: NAD HEENT: anicteric sclera CV: RRR. no extra heart sounds Resp: RRR. unlabored. equal chest rise Abd: soft. no TTP Neuro: alert. Microbiology Date/Time Source Procedure Growth Status 10/12/19 19:49 Urine,Clean Catch Urine Culture - Preliminary Gram Negative Abhishek Resulted 10/12/19 20:18 Rectum Received Laboratory Tests Test 10/14/19 05:30 10/14/19 05:50 White Blood Count 14.0 K/UL (4.8-10.8) H Red Blood Count 3.72 M/UL (4.70-6.10) L Hemoglobin 11.5 G/DL (14.2-18.0) L Hematocrit 32.5 % (42.0-52.0) L Mean Corpuscular Volume 87 FL (80-99) Mean Corpuscular Hemoglobin 31.0 PG (27.0-31.0) Mean Corpuscular Hemoglobin Concent 35.5 G/DL (32.0-36.0) Red Cell Distribution Width 11.5 % (11.6-14.8) L Platelet Count 208 K/UL (150-450) Mean Platelet Volume 7.3 FL (6.5-10.1) Neutrophils (%) (Auto) 75.1 % (45.0-75.0) H Lymphocytes (%) (Auto) 14.3 % (20.0-45.0) L Monocytes (%) (Auto) 10.1 % (1.0-10.0) H Eosinophils (%) (Auto) 0.0 % (0.0-3.0) Basophils (%) (Auto) 0.5 % (0.0-2.0) Erythrocyte Sedimentation Rate 36 MM/HR (0-20) H Sodium Level 134 MMOL/L (136-145) L Potassium Level 3.6 MMOL/L (3.5-5.1) Chloride Level 99 MMOL/L (98-107) Carbon Dioxide Level 28 MMOL/L (21-32) Anion Gap 7 mmol/L (5-15) Blood Urea Nitrogen 13 mg/dL (7-18) Creatinine 1.0 MG/DL (0.55-1.30) Estimat Glomerular Filtration Rate > 60 mL/min (>60) Glucose Level 185 MG/DL (74-106) #H Calcium Level 8.0 MG/DL (8.5-10.1) L Phosphorus Level 2.5 MG/DL (2.5-4.9) Magnesium Level 1.5 MG/DL (1.8-2.4) L Total Bilirubin 0.3 MG/DL (0.2-1.0) Aspartate Amino Transf (AST/SGOT) 50 U/L (15-37) H Alanine Aminotransferase (ALT/SGPT) 33 U/L (12-78) Alkaline Phosphatase 42 U/L (46-116) L C-Reactive Protein, Quantitative 19.4 mg/dL (0.00-0.90) H Total Protein 6.0 G/DL (6.4-8.2) L Albumin 1.8 G/DL (3.4-5.0) L Globulin 4.2 g/dL Albumin/Globulin Ratio 0.4 (1.0-2.7) L Hemoglobin A1c 11.4 % (4.3-6.0) H Thyroid Stimulating Hormone (TSH) 1.412 uiU/mL (0.358-3.740) Free Thyroxine 1.05 NG/DL (0.76-1.46) Current Medications Medications (Trade) Dose Ordered Sig/Kelly Route PRN Reason Start Time Stop Time Status Last Admin Dose Admin Acetaminophen (Tylenol) 650 mg Q6H PRN ORAL Mild Pain/Temp > 100.5 10/14/19 06:00 11/13/19 05:59 10/14/19 06:22 Benazepril HCl (Lotensin) 10 mg DAILY ORAL 10/13/19 09:00 11/12/19 08:59 10/13/19 09:17 Ceftriaxone Sodium 1 gm/ Dextrose 55 ml @ 110 mls/hr DAILY IVPB 10/13/19 16:00 10/20/19 15:59 10/14/19 08:57 Clonazepam (KlonoPIN) 0.5 mg TWICE A DAY ORAL 10/13/19 09:00 10/20/19 08:59 10/14/19 17:07 Dextrose (Dextrose 50%) 25 ml Q30M PRN IV Hypoglycemia 10/13/19 04:00 11/12/19 03:59 Dextrose (Dextrose 50%) 50 ml Q30M PRN IV Hypoglycemia 10/13/19 04:00 11/12/19 03:59 Divalproex Sodium (Depakote) 1,750 mg BEDTIME ORAL 10/13/19 21:00 11/12/19 20:59 10/13/19 20:24 Heparin Sodium (Porcine) (Heparin 5000 units/ml) 5,000 units EVERY 12 HOURS SUBQ 10/13/19 09:00 11/12/19 08:59 10/14/19 08:09 Insulin Aspart (NovoLOG) BEFORE MEALS AND HS SUBQ 10/13/19 06:30 11/12/19 06:29 10/14/19 12:20 Levothyroxine Sodium (Synthroid) 75 mcg ACBREAKFAST ORAL 10/13/19 06:30 11/12/19 06:29 10/14/19 05:45 Metformin HCl (Glucophage) 1,000 mg ACBREAKFAST ORAL 10/13/19 06:30 11/12/19 06:29 10/14/19 05:45 Nateglinide (Starlix) 60 mg TIAC ORAL 10/14/19 16:30 11/13/19 16:29 10/14/19 17:07 Pioglitazone HCl (Actos) 15 mg DAILY ORAL 10/13/19 09:00 11/12/19 08:59 10/14/19 08:12 Pravastatin Sodium (Pravachol) 20 mg BEDTIME ORAL 10/13/19 21:00 11/12/19 20:59 10/13/19 20:23 Sitagliptin Phosphate (Januvia) 100 mg ACBREAKFAST ORAL 10/14/19 13:45 11/13/19 13:44 10/14/19 14:33 Zolpidem Tartrate (Ambien) 5 mg BEDTIME PRN ORAL Insomnia 10/13/19 04:00 10/20/19 03:59 Michael Guerra MD Oct 14, 2019 19:16
--- NOTE | 2019-10-14 19:20 | NUR ---
NURSE NOTES: Received report from Salma Cooper .Pt is wake a/ox2, breaths even, and regular and unlabored at RA. Pt incontinent X2 Pt has a R AC inserted on 10/13 saline lock, pt denies any pain, side rails padded for precaution , bed in low locked position, will continue to monitor
[2019-10-14 20:00] VITALS: BP 117/77
[2019-10-14] MEDS: Piperacillin/Tazobactam 3.375 GM in NS 110 ML IVPB SCH (23:19)
[2019-10-15] VITALS: BP 112/56
[2019-10-15 04:00] VITALS: BP 143/69
[2019-10-15] MEDS: metFORMIN 500mg tab ORAL SCH (06:22)
[2019-10-15] MEDS: Nateglinide 60mg tab ORAL SCH ×3 (06:22→16:42)
[2019-10-15] MEDS: NovoLOG Insulin Flexpen SUBQ SCH ×4 (06:22→21:51)
[2019-10-15] MEDS: Piperacillin/Tazobactam 3.375 GM in NS 110 ML IVPB SCH ×3 (06:23→21:43)
[2019-10-15 06:35] LABS: BASOPHILS % (AUTO) 1.9 % (0.0-2.0); HEMATOCRIT 33.2 % (42.0-52.0); HEMOGLOBIN 11.4 G/DL (14.2-18.0); LYMPHOCYTES % (AUTO) 19.1 % (20.0-45.0); MEAN CORPUSCULAR VOLUME 90 FL (80-99); MONOCYTES % (AUTO) 13.4 % (1.0-10.0); NEUTROPHILS % (AUTO) 65.6 % (45.0-75.0); PLATELET COUNT 224 K/UL (150-450); RED BLOOD COUNT 3.71 M/UL (4.70-6.10); RED CELL DISTRIBUTION WIDTH 11.7 % (11.6-14.8); WHITE BLOOD COUNT 8.7 K/UL (4.8-10.8)
[2019-10-15 07:01] LABS: ALANINE AMINOTRANSFERASE 30 U/L (12-78); ALBUMIN 1.7 G/DL (3.4-5.0); ALBUMIN/GLOBULIN RATIO 0.4 (1.0-2.7); ALKALINE PHOSPHATASE 44 U/L (46-116); ANION GAP 9 mmol/L (5-15); ASPARTATE AMINO TRANSFERASE 50 U/L (15-37); BILIRUBIN,TOTAL 0.2 MG/DL (0.2-1.0); BLOOD UREA NITROGEN 24 mg/dL (7-18); CALCIUM 7.7 MG/DL (8.5-10.1); CARBON DIOXIDE 26 MMOL/L (21-32); CHLORIDE 100 MMOL/L (98-107); PHOSPHORUS 3.3 MG/DL (2.5-4.9); POTASSIUM 4.4 MMOL/L (3.5-5.1); SODIUM 135 MMOL/L (136-145)
[2019-10-15 08:00] VITALS: BP 112/70
--- NOTE | 2019-10-15 08:01 | NUR ---
NURSE NOTES: AWAKE X1 NO C/O PAIN UN NO DISTRESS.
--- NOTE | 2019-10-15 08:02 | NUR ---
HAND-OFF: Report given to RN rafaela.Nurse notified of positive ESBL urine .
[2019-10-15] MEDS: Benazepril 10mg tab ORAL SCH (08:44)
[2019-10-15] MEDS: clonazePAM 0.5mg tab ORAL SCH ×2 (08:44→18:16)
[2019-10-15] MEDS: Heparin 5000 units/ml inj SUBQ SCH ×2 (08:45→21:42)
[2019-10-15 12:00] VITALS: BP 108/61
--- NOTE | 2019-10-15 14:25 | General Progress Note ---
Assessment/Plan Problem List: (1) Hypothyroid ICD Codes: E03.9 - Hypothyroidism, unspecified SNOMED: 06164034 (2) Hyperglycemia ICD Codes: R73.9 - Hyperglycemia, unspecified SNOMED: 96828594 (3) Uncontrolled diabetes mellitus ICD Codes: E11.65 - Type 2 diabetes mellitus with hyperglycemia SNOMED: 64283451, 894236229 Assessment/Plan: continue Januvia 100 mg daily continue Starlix 60 mg ac tid continue Metformin as is continue NISS ac / hs continue current dose of Levothyroxine Subjective ROS Limited/Unobtainable: Yes Allergies: Coded Allergies: No Known Allergies (Unverified , 10/12/19) Subjective events noted glucose values noted Item Value Date Time Bedside Blood Glucose 212 mg/dl H 10/15/19 1141 Bedside Blood Glucose 188 mg/dl H 10/15/19 0622 Bedside Blood Glucose 198 mg/dl H 10/14/19 2327 Bedside Blood Glucose 110 mg/dl 10/14/19 1648 Objective Last 24 Hour Vital Signs Date Time Temp Pulse Resp B/P (MAP) Pulse Ox O2 Delivery O2 Flow Rate FiO2 10/15/19 12:00 98.6 92 18 108/61 (77) 94 10/15/19 09:00 Room Air 10/15/19 08:44 112/70 10/15/19 08:00 99.2 86 18 112/70 (84) 93 10/15/19 04:00 98.2 78 18 143/69 (93) 95 10/15/19 00:00 97.9 87 20 112/56 (74) 97 10/14/19 21:00 Room Air 10/14/19 20:00 98.8 93 20 117/77 (90) 99 10/14/19 15:53 97.9 89 20 99/67 (78) 94 Intake and Output 10/14/19 10/15/19 19:00 07:00 Intake Total 950 ml 420 ml Balance 950 ml 420 ml Intake Oral 840 ml 420 ml IV Total 110 ml # Voids 3 Laboratory Tests 10/15/19 05:35: White Blood Count 8.7, Red Blood Count 3.71L, Hemoglobin 11.4L, Hematocrit 33.2L , Mean Corpuscular Volume 90, Mean Corpuscular Hemoglobin 30.9, Mean Corpuscular Hemoglobin Concent 34.5, Red Cell Distribution Width 11.7, Platelet Count 224, Mean Platelet Volume 7.0, Neutrophils (%) (Auto) 65.6, Lymphocytes (% ) (Auto) 19.1L, Monocytes (%) (Auto) 13.4H, Eosinophils (%) (Auto) 0.0, Basophils (%) (Auto) 1.9, Erythrocyte Sedimentation Rate 72H, Sodium Level 135L , Potassium Level 4.4, Chloride Level 100, Carbon Dioxide Level 26, Anion Gap 9 , Blood Urea Nitrogen 24H, Creatinine 1.0, Estimat Glomerular Filtration Rate > 60, Glucose Level 228H, Calcium Level 7.7L, Phosphorus Level 3.3, Magnesium Level 2.1, Total Bilirubin 0.2, Aspartate Amino Transf (AST/SGOT) 50H, Alanine Aminotransferase (ALT/SGPT) 30, Alkaline Phosphatase 44L, C-Reactive Protein, Quantitative 24.6H, Total Protein 6.4, Albumin 1.7L, Globulin 4.7, Albumin/ Globulin Ratio 0.4L Height (Feet): 5 Height (Inches): 5.00 Weight (Pounds): 170 General Appearance: no apparent distress Neck: normal alignment Cardiovascular: normal rate Respiratory/Chest: lungs clear Objective Current Medications Medications (Trade) Dose Ordered Sig/Kelly Route PRN Reason Start Time Stop Time Status Last Admin Dose Admin Acetaminophen (Tylenol) 650 mg Q6H PRN ORAL Mild Pain/Temp > 100.5 10/14/19 06:00 11/13/19 05:59 10/14/19 06:22 Benazepril HCl (Lotensin) 10 mg DAILY ORAL 10/13/19 09:00 11/12/19 08:59 10/15/19 08:44 Clonazepam (KlonoPIN) 0.5 mg TWICE A DAY ORAL 10/13/19 09:00 10/20/19 08:59 10/15/19 08:44 Dextrose (Dextrose 50%) 25 ml Q30M PRN IV Hypoglycemia 10/13/19 04:00 11/12/19 03:59 Dextrose (Dextrose 50%) 50 ml Q30M PRN IV Hypoglycemia 10/13/19 04:00 11/12/19 03:59 Divalproex Sodium (Depakote) 1,750 mg BEDTIME ORAL 10/13/19 21:00 11/12/19 20:59 10/14/19 23:18 Heparin Sodium (Porcine) (Heparin 5000 units/ml) 5,000 units EVERY 12 HOURS SUBQ 10/13/19 09:00 11/12/19 08:59 10/15/19 08:45 Insulin Aspart (NovoLOG) BEFORE MEALS AND HS SUBQ 10/13/19 06:30 11/12/19 06:29 10/15/19 11:41 Levothyroxine Sodium (Synthroid) 75 mcg ACBREAKFAST ORAL 10/13/19 06:30 11/12/19 06:29 10/15/19 06:23 Metformin HCl (Glucophage) 1,000 mg ACBREAKFAST ORAL 10/13/19 06:30 11/12/19 06:29 10/15/19 06:22 Nateglinide (Starlix) 60 mg TIAC ORAL 10/14/19 16:30 11/13/19 16:29 10/15/19 11:49 Pioglitazone HCl (Actos) 15 mg DAILY ORAL 10/13/19 09:00 11/12/19 08:59 10/15/19 08:44 Piperacillin Sod/ Tazobactam Sod 3.375 gm/Sodium Chloride 110 ml @ 27.5 mls/hr EVERY 8 HOURS IVPB 10/14/19 22:00 10/19/19 21:59 10/15/19 14:07 Pravastatin Sodium (Pravachol) 20 mg BEDTIME ORAL 10/13/19 21:00 11/12/19 20:59 10/14/19 23:18 Sitagliptin Phosphate (Januvia) 100 mg ACBREAKFAST ORAL 10/14/19 13:45 11/13/19 13:44 10/15/19 06:22 Zolpidem Tartrate (Ambien) 5 mg BEDTIME PRN ORAL Insomnia 10/13/19 04:00 10/20/19 03:59 Prosper Boateng MD Oct 15, 2019 14:25
--- NOTE | 2019-10-15 15:06 | Internal Med Progress Note ---
Subjective Date of Service: Oct 15, 2019 Physician Name Reynold Burton Attending Physician Ankush Hoffman MD Current Medications Medications (Trade) Dose Ordered Sig/Kelly Route PRN Reason Start Time Stop Time Status Last Admin Dose Admin Acetaminophen (Tylenol) 650 mg Q6H PRN ORAL Mild Pain/Temp > 100.5 10/14/19 06:00 11/13/19 05:59 10/14/19 06:22 Benazepril HCl (Lotensin) 10 mg DAILY ORAL 10/13/19 09:00 11/12/19 08:59 10/15/19 08:44 Clonazepam (KlonoPIN) 0.5 mg TWICE A DAY ORAL 10/13/19 09:00 10/20/19 08:59 10/15/19 08:44 Dextrose (Dextrose 50%) 25 ml Q30M PRN IV Hypoglycemia 10/13/19 04:00 11/12/19 03:59 Dextrose (Dextrose 50%) 50 ml Q30M PRN IV Hypoglycemia 10/13/19 04:00 11/12/19 03:59 Divalproex Sodium (Depakote) 1,750 mg BEDTIME ORAL 10/13/19 21:00 11/12/19 20:59 10/14/19 23:18 Heparin Sodium (Porcine) (Heparin 5000 units/ml) 5,000 units EVERY 12 HOURS SUBQ 10/13/19 09:00 11/12/19 08:59 10/15/19 08:45 Insulin Aspart (NovoLOG) BEFORE MEALS AND HS SUBQ 10/13/19 06:30 11/12/19 06:29 10/15/19 11:41 Levothyroxine Sodium (Synthroid) 75 mcg ACBREAKFAST ORAL 10/13/19 06:30 11/12/19 06:29 10/15/19 06:23 Metformin HCl (Glucophage) 1,000 mg ACBREAKFAST ORAL 10/13/19 06:30 11/12/19 06:29 10/15/19 06:22 Nateglinide (Starlix) 60 mg TIAC ORAL 10/14/19 16:30 11/13/19 16:29 10/15/19 11:49 Pioglitazone HCl (Actos) 15 mg DAILY ORAL 10/13/19 09:00 11/12/19 08:59 10/15/19 08:44 Piperacillin Sod/ Tazobactam Sod 3.375 gm/Sodium Chloride 110 ml @ 27.5 mls/hr EVERY 8 HOURS IVPB 10/14/19 22:00 10/19/19 21:59 10/15/19 14:07 Pravastatin Sodium (Pravachol) 20 mg BEDTIME ORAL 10/13/19 21:00 11/12/19 20:59 10/14/19 23:18 Sitagliptin Phosphate (Januvia) 100 mg ACBREAKFAST ORAL 10/14/19 13:45 11/13/19 13:44 10/15/19 06:22 Zolpidem Tartrate (Ambien) 5 mg BEDTIME PRN ORAL Insomnia 10/13/19 04:00 10/20/19 03:59 Allergies: Coded Allergies: No Known Allergies (Unverified , 10/12/19) ROS Limited/Unobtainable: No Constitutional: Reports: no symptoms HEENT: Reports: no symptoms Cardiovascular: Reports: no symptoms Respiratory: Reports: no symptoms Gastrointestinal/Abdominal: Reports: no symptoms Genitourinary: Reports: no symptoms Neurologic/Psychiatric: Reports: no symptoms Subjective 54 YO M admitted with uncontrolled diabetes, now UTI. Cover for Int Med-Dr Hoffman Objective Last Vital Signs Date Time Temp Pulse Resp B/P (MAP) Pulse Ox O2 Delivery O2 Flow Rate FiO2 10/15/19 12:00 98.6 92 18 108/61 (77) 94 10/15/19 09:00 Room Air Laboratory Tests Test 10/15/19 05:35 White Blood Count 8.7 K/UL (4.8-10.8) Red Blood Count 3.71 M/UL (4.70-6.10) L Hemoglobin 11.4 G/DL (14.2-18.0) L Hematocrit 33.2 % (42.0-52.0) L Mean Corpuscular Volume 90 FL (80-99) Mean Corpuscular Hemoglobin 30.9 PG (27.0-31.0) Mean Corpuscular Hemoglobin Concent 34.5 G/DL (32.0-36.0) Red Cell Distribution Width 11.7 % (11.6-14.8) Platelet Count 224 K/UL (150-450) Mean Platelet Volume 7.0 FL (6.5-10.1) Neutrophils (%) (Auto) 65.6 % (45.0-75.0) Lymphocytes (%) (Auto) 19.1 % (20.0-45.0) L Monocytes (%) (Auto) 13.4 % (1.0-10.0) H Eosinophils (%) (Auto) 0.0 % (0.0-3.0) Basophils (%) (Auto) 1.9 % (0.0-2.0) Erythrocyte Sedimentation Rate 72 MM/HR (0-20) H Sodium Level 135 MMOL/L (136-145) L Potassium Level 4.4 MMOL/L (3.5-5.1) Chloride Level 100 MMOL/L (98-107) Carbon Dioxide Level 26 MMOL/L (21-32) Anion Gap 9 mmol/L (5-15) Blood Urea Nitrogen 24 mg/dL (7-18) H Creatinine 1.0 MG/DL (0.55-1.30) Estimat Glomerular Filtration Rate > 60 mL/min (>60) Glucose Level 228 MG/DL (74-106) H Calcium Level 7.7 MG/DL (8.5-10.1) L Phosphorus Level 3.3 MG/DL (2.5-4.9) Magnesium Level 2.1 MG/DL (1.8-2.4) Total Bilirubin 0.2 MG/DL (0.2-1.0) Aspartate Amino Transf (AST/SGOT) 50 U/L (15-37) H Alanine Aminotransferase (ALT/SGPT) 30 U/L (12-78) Alkaline Phosphatase 44 U/L (46-116) L C-Reactive Protein, Quantitative 24.6 mg/dL (0.00-0.90) H Total Protein 6.4 G/DL (6.4-8.2) Albumin 1.7 G/DL (3.4-5.0) L Globulin 4.7 g/dL Albumin/Globulin Ratio 0.4 (1.0-2.7) L Microbiology Date/Time Source Procedure Growth Status 10/13/19 17:36 Blood Blood Culture - Preliminary NO GROWTH AFTER 24 HOURS Resulted 10/13/19 17:30 Blood Blood Culture - Preliminary NO GROWTH AFTER 24 HOURS Resulted 10/12/19 20:18 Nasal Nares MRSA Culture - Final NO METHICILLIN RESISTANT STAPH AUREUS... Complete 10/12/19 19:49 Urine,Clean Catch Urine Culture - Final Escherichia Coli - Esbl Complete 10/12/19 20:18 Rectum VRE Culture - Final NO VANCOMYCIN RESISTANT ENTEROCOCCUS ... Complete Intake and Output 10/14/19 10/15/19 19:00 07:00 Intake Total 950 ml 420 ml Balance 950 ml 420 ml Intake Oral 840 ml 420 ml IV Total 110 ml # Voids 3 Objective PHYSICAL EXAMINATION: GENERAL: The patient is awake and responsive, in no acute distress. HEAD AND NECK: Pupils are equal and reactive to light. Extraocular muscles intact. Neck was supple. No JVD. LUNGS: Good air entry with no wheezing or rales. HEART: S1, S2. Distant heart sounds. No gallops. ABDOMEN: Soft, nondistended, and nontender. Mildly obese. EXTREMITIES: No cyanosis, clubbing, or edema NEUROLOGIC: Cranial nerves II through XII grossly grossly intact. Motor is 5/5 in all extremities. Gait was not assessed due to the patient's status. RECTAL: Refused and deferred. GENITOURINARY: Refused and deferred. PSYCHIATRIC: Mood and affect is calm. Assessment/Plan Assessment/Plan ASSESSMENT: 1. Uncontrolled diabetes type 2, possible due to underlying infection such as urinary tract infection. 2. urinary tract infection=ESBL E. Coli 3. Dehydration. 4. Acute kidney injury on chronic renal insufficiency. 5. Proteinuria. 6. Developmental delay. 7. Hypothyroidism. 8. Seizure disorder. 9. Morbid obesity. PLAN: 1. Admit the patient to the medical floor. 2. Start the patient on IV hydration. 3. Accu-Chek with sliding scale. 4. Monitor laboratory. 5. antibiotic=Zosyn. Follow up with culture. 6. DVT prophylaxis with heparin subcutaneous. 7. ID=Dr. Gutierrez. Reynold Burton MD Oct 15, 2019 15:06
[2019-10-15] MEDS ORDERED: NS 275ml ONE (15:55)
[2019-10-15] MEDS ORDERED: Tubing IV Secondary IV ONE (15:55)
[2019-10-15 16:00] VITALS: BP 98/56
--- NOTE | 2019-10-15 19:07 | NUR ---
NURSE NOTES: resting. in no apparent distress.
--- NOTE | 2019-10-15 19:10 | NUR ---
NURSE NOTES: Received report from Salma Collier .Pt is wake a/ox1, breaths even, and regular and unlabored at RA. Pt incontinent X2 Pt has a R AC saline lock, pt denies any pain, side rails padded for precaution , bed in low locked position, will continue to monitor
--- NOTE | 2019-10-15 19:23 | NUR ---
HAND-OFF: Report given to HECTOR MALCOLM.
[2019-10-15 20:02] VITALS: BP 99/62
[2019-10-16] VITALS: BP 102/58
[2019-10-16 04:00] VITALS: BP 98/57
[2019-10-16] MEDS: NovoLOG Insulin Flexpen SUBQ SCH ×4 (06:08→21:24)
[2019-10-16] MEDS: Nateglinide 60mg tab ORAL SCH ×4 (06:08→17:15)
[2019-10-16] MEDS: Piperacillin/Tazobactam 3.375 GM in NS 110 ML IVPB SCH ×3 (06:09→21:27)
[2019-10-16] MEDS: metFORMIN 500mg tab ORAL SCH ×3 (06:09→17:15)
[2019-10-16 06:25] LABS: BASOPHILS % (AUTO) 0.5 % (0.0-2.0); EOSINOPHILS % (AUTO) 0.1 % (0.0-3.0); HEMATOCRIT 33.8 % (42.0-52.0); HEMOGLOBIN 11.4 G/DL (14.2-18.0); LYMPHOCYTES % (AUTO) 19.2 % (20.0-45.0); MEAN CORPUSCULAR VOLUME 91 FL (80-99); MONOCYTES % (AUTO) 7.7 % (1.0-10.0); NEUTROPHILS % (AUTO) 72.5 % (45.0-75.0); PLATELET COUNT 229 K/UL (150-450); RED BLOOD COUNT 3.71 M/UL (4.70-6.10); RED CELL DISTRIBUTION WIDTH 11.9 % (11.6-14.8); WHITE BLOOD COUNT 10.5 K/UL (4.8-10.8)
[2019-10-16 06:51] LABS: ANION GAP 7 mmol/L (5-15); BLOOD UREA NITROGEN 27 mg/dL (7-18); CALCIUM 8.3 MG/DL (8.5-10.1); CARBON DIOXIDE 28 MMOL/L (21-32); CHLORIDE 105 MMOL/L (98-107); POTASSIUM 4.6 MMOL/L (3.5-5.1); SODIUM 140 MMOL/L (136-145)
--- NOTE | 2019-10-16 07:15 | General Progress Note ---
Assessment/Plan Problem List: (1) Hypothyroid ICD Codes: E03.9 - Hypothyroidism, unspecified SNOMED: 48253086 (2) Hyperglycemia ICD Codes: R73.9 - Hyperglycemia, unspecified SNOMED: 48231676 (3) Uncontrolled diabetes mellitus ICD Codes: E11.65 - Type 2 diabetes mellitus with hyperglycemia SNOMED: 67856175, 606880478 Assessment/Plan: increase Starlix to 120 mg ac tid continue Januvia 100 mg daily continue Actos 15 mg daily increase Metformin to 1000 mg bid continue NISS ac / hs continue Levothyroxine 75 mcg daily Subjective Allergies: Coded Allergies: No Known Allergies (Unverified , 10/12/19) Subjective events noted glucose values elevated Item Value Date Time Bedside Blood Glucose 200 mg/dl H 10/16/19 0608 Bedside Blood Glucose 248 mg/dl H 10/15/19 2151 Bedside Blood Glucose 163 mg/dl H 10/15/19 1643 Bedside Blood Glucose 212 mg/dl H 10/15/19 1141 Bedside Blood Glucose 188 mg/dl H 10/15/19 0622 Bedside Blood Glucose 198 mg/dl H 10/14/19 2327 Objective Last 24 Hour Vital Signs Date Time Temp Pulse Resp B/P (MAP) Pulse Ox O2 Delivery O2 Flow Rate FiO2 10/16/19 04:00 98.4 80 17 98/57 (71) 94 10/16/19 00:00 97.0 81 18 102/58 (73) 94 10/15/19 21:00 Room Air 10/15/19 20:02 98.6 86 17 99/62 (74) 95 10/15/19 16:00 98.4 86 18 98/56 (70) 93 10/15/19 12:00 98.6 92 18 108/61 (77) 94 10/15/19 09:00 Room Air 10/15/19 08:44 112/70 10/15/19 08:00 99.2 86 18 112/70 (84) 93 Intake and Output 10/15/19 10/16/19 19:00 07:00 Intake Total 830 ml 236 ml Balance 830 ml 236 ml Intake Oral 720 ml 236 ml IV Total 110 ml # Voids 4 Laboratory Tests 10/16/19 05:20: White Blood Count 10.5, Red Blood Count 3.71L, Hemoglobin 11.4L, Hematocrit 33.8L, Mean Corpuscular Volume 91, Mean Corpuscular Hemoglobin 30.6, Mean Corpuscular Hemoglobin Concent 33.6, Red Cell Distribution Width 11.9, Platelet Count 229, Mean Platelet Volume 7.3, Neutrophils (%) (Auto) 72.5, Lymphocytes (% ) (Auto) 19.2L, Monocytes (%) (Auto) 7.7, Eosinophils (%) (Auto) 0.1, Basophils (%) (Auto) 0.5, Sodium Level 140, Potassium Level 4.6, Chloride Level 105, Carbon Dioxide Level 28, Anion Gap 7, Blood Urea Nitrogen 27H, Creatinine 1.0, Estimat Glomerular Filtration Rate > 60, Glucose Level 209H, Calcium Level 8.3L Height (Feet): 5 Height (Inches): 5.00 Weight (Pounds): 170 General Appearance: no apparent distress Neck: normal alignment Cardiovascular: normal rate Respiratory/Chest: lungs clear Abdomen: normal bowel sounds Objective Current Medications Medications (Trade) Dose Ordered Sig/Kelly Route PRN Reason Start Time Stop Time Status Last Admin Dose Admin Acetaminophen (Tylenol) 650 mg Q6H PRN ORAL Mild Pain/Temp > 100.5 10/14/19 06:00 11/13/19 05:59 10/14/19 06:22 Benazepril HCl (Lotensin) 10 mg DAILY ORAL 10/13/19 09:00 11/12/19 08:59 10/15/19 08:44 Clonazepam (KlonoPIN) 0.5 mg TWICE A DAY ORAL 10/13/19 09:00 10/20/19 08:59 10/15/19 18:16 Dextrose (Dextrose 50%) 25 ml Q30M PRN IV Hypoglycemia 10/13/19 04:00 11/12/19 03:59 Dextrose (Dextrose 50%) 50 ml Q30M PRN IV Hypoglycemia 10/13/19 04:00 11/12/19 03:59 Divalproex Sodium (Depakote) 1,750 mg BEDTIME ORAL 10/13/19 21:00 11/12/19 20:59 10/15/19 21:52 Heparin Sodium (Porcine) (Heparin 5000 units/ml) 5,000 units EVERY 12 HOURS SUBQ 10/13/19 09:00 11/12/19 08:59 10/15/19 21:42 Insulin Aspart (NovoLOG) BEFORE MEALS AND HS SUBQ 10/13/19 06:30 11/12/19 06:29 10/16/19 06:08 Levothyroxine Sodium (Synthroid) 75 mcg ACBREAKFAST ORAL 10/13/19 06:30 11/12/19 06:29 10/16/19 06:09 Metformin HCl (Glucophage) 1,000 mg ACBREAKFAST ORAL 10/13/19 06:30 11/12/19 06:29 10/16/19 06:09 Nateglinide (Starlix) 60 mg TIAC ORAL 10/14/19 16:30 11/13/19 16:29 10/16/19 06:09 Pioglitazone HCl (Actos) 15 mg DAILY ORAL 10/13/19 09:00 11/12/19 08:59 10/15/19 08:44 Piperacillin Sod/ Tazobactam Sod 3.375 gm/Sodium Chloride 110 ml @ 27.5 mls/hr EVERY 8 HOURS IVPB 10/14/19 22:00 10/19/19 21:59 10/16/19 06:09 Pravastatin Sodium (Pravachol) 20 mg BEDTIME ORAL 10/13/19 21:00 11/12/19 20:59 10/15/19 21:41 Sitagliptin Phosphate (Januvia) 100 mg ACBREAKFAST ORAL 10/14/19 13:45 11/13/19 13:44 10/16/19 06:09 Zolpidem Tartrate (Ambien) 5 mg BEDTIME PRN ORAL Insomnia 10/13/19 04:00 10/20/19 03:59 Prosper Boateng MD Oct 16, 2019 07:15
--- NOTE | 2019-10-16 07:45 | NUR ---
NURSE NOTES: Received repot from Kathleen MALCOLM. Patient is awake and oriented x1, no acute distress noted, no s/s of pain, IV intact, patent, running Zosyn per order. Fall precautions maintained. Side rails upx3, bed low and locked, bed alarm armed, call light within reach.
[2019-10-16 08:00] VITALS: BP 102/66
--- NOTE | 2019-10-16 08:09 | NUR ---
HAND-OFF: Report given to YUN botello
[2019-10-16] MEDS: Benazepril 10mg tab ORAL SCH (10:05)
[2019-10-16] MEDS: clonazePAM 0.5mg tab ORAL SCH ×2 (10:05→17:15)
[2019-10-16] MEDS: Heparin 5000 units/ml inj SUBQ SCH ×2 (10:06→21:23)
--- NOTE | 2019-10-16 10:06 | NUR ---
*-* INSURANCE *-* ALL CLINICALS AND REVIEWS HAVE BEEN FAXED TO: JOSELINE NO MARKETING INFORMATION ANALYST ASSIGNED AT THIS TIME P- [phone] F- [phone]...REVIEW/CLINICAL
--- NOTE | 2019-10-16 11:23 | Infectious Diseases Prog Note ---
Assessment/Plan Assessment/Plan Assessment: SEpsis Fever, SP Leukocytosis, SP UTI -u/a wbc 2-4, nit +, leuk +1; ucx >100k ESBL E.coli (S Zosyn, Ertapenem) -CXR: No acute process -10/13 Bcx NTD Hyperglycemia OCTAVIA, SP seizure disorder developmental delay Plan: Continue empiric Zosyn #3/5 for UTI (S to Zosyn) -upon discharge can be transition to PO Bactrim) -10/14 SP Ceftriaxone #2 -f/u cx -Monitor CBC/CMP, temperatures -aspiration precautions Thank you for this consultation. Will continue to follow along with you. Subjective Allergies: Coded Allergies: No Known Allergies (Unverified , 10/12/19) Subjective afebrile >48hrs no leukocytosis Objective Vital Signs Last 24 Hour Vital Signs Date Time Temp Pulse Resp B/P (MAP) Pulse Ox O2 Delivery O2 Flow Rate FiO2 10/16/19 10:05 102/66 10/16/19 08:00 98.4 85 16 102/66 (78) 98 10/16/19 04:00 98.4 80 17 98/57 (71) 94 10/16/19 00:00 97.0 81 18 102/58 (73) 94 10/15/19 21:00 Room Air 10/15/19 20:02 98.6 86 17 99/62 (74) 95 10/15/19 16:00 98.4 86 18 98/56 (70) 93 10/15/19 12:00 98.6 92 18 108/61 (77) 94 Height (Feet): 5 Height (Inches): 5.00 Weight (Pounds): 170 Objective GENERAL: The patient is awake and responsive, in no acute distress. HEAD AND NECK: Pupils are equal and reactive to light. Extraocular muscles intact. Neck was supple. No JVD. LUNGS: Good air entry with no wheezing or rales. HEART: S1, S2. Distant heart sounds. No gallops. ABDOMEN: Soft, nondistended, and nontender. Mildly obese. EXTREMITIES: No cyanosis, clubbing, or edema Microbiology Date/Time Source Procedure Growth Status 10/13/19 17:36 Blood Blood Culture - Preliminary NO GROWTH AFTER 48 HOURS Resulted 10/13/19 17:30 Blood Blood Culture - Preliminary NO GROWTH AFTER 48 HOURS Resulted Laboratory Tests Test 10/16/19 05:20 White Blood Count 10.5 K/UL (4.8-10.8) Red Blood Count 3.71 M/UL (4.70-6.10) L Hemoglobin 11.4 G/DL (14.2-18.0) L Hematocrit 33.8 % (42.0-52.0) L Mean Corpuscular Volume 91 FL (80-99) Mean Corpuscular Hemoglobin 30.6 PG (27.0-31.0) Mean Corpuscular Hemoglobin Concent 33.6 G/DL (32.0-36.0) Red Cell Distribution Width 11.9 % (11.6-14.8) Platelet Count 229 K/UL (150-450) Mean Platelet Volume 7.3 FL (6.5-10.1) Neutrophils (%) (Auto) 72.5 % (45.0-75.0) Lymphocytes (%) (Auto) 19.2 % (20.0-45.0) L Monocytes (%) (Auto) 7.7 % (1.0-10.0) Eosinophils (%) (Auto) 0.1 % (0.0-3.0) Basophils (%) (Auto) 0.5 % (0.0-2.0) Sodium Level 140 MMOL/L (136-145) Potassium Level 4.6 MMOL/L (3.5-5.1) Chloride Level 105 MMOL/L (98-107) Carbon Dioxide Level 28 MMOL/L (21-32) Anion Gap 7 mmol/L (5-15) Blood Urea Nitrogen 27 mg/dL (7-18) H Creatinine 1.0 MG/DL (0.55-1.30) Estimat Glomerular Filtration Rate > 60 mL/min (>60) Glucose Level 209 MG/DL (74-106) H Calcium Level 8.3 MG/DL (8.5-10.1) L Current Medications Medications (Trade) Dose Ordered Sig/Kelly Route PRN Reason Start Time Stop Time Status Last Admin Dose Admin Acetaminophen (Tylenol) 650 mg Q6H PRN ORAL Mild Pain/Temp > 100.5 10/14/19 06:00 11/13/19 05:59 10/14/19 06:22 Benazepril HCl (Lotensin) 10 mg DAILY ORAL 10/13/19 09:00 11/12/19 08:59 10/16/19 10:05 Clonazepam (KlonoPIN) 0.5 mg TWICE A DAY ORAL 10/13/19 09:00 10/20/19 08:59 10/16/19 10:05 Dextrose (Dextrose 50%) 25 ml Q30M PRN IV Hypoglycemia 10/13/19 04:00 11/12/19 03:59 Dextrose (Dextrose 50%) 50 ml Q30M PRN IV Hypoglycemia 10/13/19 04:00 11/12/19 03:59 Divalproex Sodium (Depakote) 1,750 mg BEDTIME ORAL 10/13/19 21:00 11/12/19 20:59 10/15/19 21:52 Heparin Sodium (Porcine) (Heparin 5000 units/ml) 5,000 units EVERY 12 HOURS SUBQ 10/13/19 09:00 11/12/19 08:59 10/16/19 10:06 Insulin Aspart (NovoLOG) BEFORE MEALS AND HS SUBQ 10/13/19 06:30 11/12/19 06:29 10/16/19 06:08 Levothyroxine Sodium (Synthroid) 75 mcg ACBREAKFAST ORAL 10/13/19 06:30 11/12/19 06:29 10/16/19 06:09 Metformin HCl (Glucophage) 1,000 mg BID ORAL 10/16/19 09:00 11/12/19 06:29 10/16/19 10:05 Nateglinide (Starlix) 120 mg TIAC ORAL 10/16/19 07:30 11/13/19 07:29 10/16/19 06:08 Pioglitazone HCl (Actos) 15 mg DAILY ORAL 10/13/19 09:00 11/12/19 08:59 10/16/19 10:04 Piperacillin Sod/ Tazobactam Sod 3.375 gm/Sodium Chloride 110 ml @ 27.5 mls/hr EVERY 8 HOURS IVPB 10/14/19 22:00 10/19/19 21:59 10/16/19 06:09 Pravastatin Sodium (Pravachol) 20 mg BEDTIME ORAL 10/13/19 21:00 11/12/19 20:59 10/15/19 21:41 Sitagliptin Phosphate (Januvia) 100 mg ACBREAKFAST ORAL 10/14/19 13:45 11/13/19 13:44 10/16/19 06:09 Zolpidem Tartrate (Ambien) 5 mg BEDTIME PRN ORAL Insomnia 10/13/19 04:00 10/20/19 03:59 Roxana Gutierrez M.D. Oct 16, 2019 11:23
[2019-10-16 12:00] VITALS: BP 105/61
--- NOTE | 2019-10-16 14:15 | Internal Med Progress Note ---
Subjective Date of Service: Oct 16, 2019 Physician Name Reynold Burton Attending Physician Ankush Hoffman MD Current Medications Medications (Trade) Dose Ordered Sig/Kelly Route PRN Reason Start Time Stop Time Status Last Admin Dose Admin Acetaminophen (Tylenol) 650 mg Q6H PRN ORAL Mild Pain/Temp > 100.5 10/14/19 06:00 11/13/19 05:59 10/14/19 06:22 Benazepril HCl (Lotensin) 10 mg DAILY ORAL 10/13/19 09:00 11/12/19 08:59 10/16/19 10:05 Clonazepam (KlonoPIN) 0.5 mg TWICE A DAY ORAL 10/13/19 09:00 10/20/19 08:59 10/16/19 10:05 Dextrose (Dextrose 50%) 25 ml Q30M PRN IV Hypoglycemia 10/13/19 04:00 11/12/19 03:59 Dextrose (Dextrose 50%) 50 ml Q30M PRN IV Hypoglycemia 10/13/19 04:00 11/12/19 03:59 Divalproex Sodium (Depakote) 1,750 mg BEDTIME ORAL 10/13/19 21:00 11/12/19 20:59 10/15/19 21:52 Heparin Sodium (Porcine) (Heparin 5000 units/ml) 5,000 units EVERY 12 HOURS SUBQ 10/13/19 09:00 11/12/19 08:59 10/16/19 10:06 Insulin Aspart (NovoLOG) BEFORE MEALS AND HS SUBQ 10/13/19 06:30 11/12/19 06:29 10/16/19 06:08 Levothyroxine Sodium (Synthroid) 75 mcg ACBREAKFAST ORAL 10/13/19 06:30 11/12/19 06:29 10/16/19 06:09 Metformin HCl (Glucophage) 1,000 mg BID ORAL 10/16/19 09:00 11/12/19 06:29 10/16/19 10:05 Nateglinide (Starlix) 120 mg TIAC ORAL 10/16/19 07:30 11/13/19 07:29 10/16/19 11:52 Pioglitazone HCl (Actos) 15 mg DAILY ORAL 10/13/19 09:00 11/12/19 08:59 10/16/19 10:04 Piperacillin Sod/ Tazobactam Sod 3.375 gm/Sodium Chloride 110 ml @ 27.5 mls/hr EVERY 8 HOURS IVPB 10/14/19 22:00 10/19/19 21:59 10/16/19 06:09 Pravastatin Sodium (Pravachol) 20 mg BEDTIME ORAL 10/13/19 21:00 11/12/19 20:59 10/15/19 21:41 Sitagliptin Phosphate (Januvia) 100 mg ACBREAKFAST ORAL 10/14/19 13:45 11/13/19 13:44 10/16/19 06:09 Zolpidem Tartrate (Ambien) 5 mg BEDTIME PRN ORAL Insomnia 10/13/19 04:00 10/20/19 03:59 Allergies: Coded Allergies: No Known Allergies (Unverified , 10/12/19) ROS Limited/Unobtainable: No Constitutional: Reports: no symptoms HEENT: Reports: no symptoms Cardiovascular: Reports: no symptoms Respiratory: Reports: no symptoms Gastrointestinal/Abdominal: Reports: no symptoms Genitourinary: Reports: no symptoms Neurologic/Psychiatric: Reports: no symptoms Subjective 54 YO M admitted with uncontrolled diabetes, now UTI. Cover for Int Med-Dr Hoffman Objective Last Vital Signs Date Time Temp Pulse Resp B/P (MAP) Pulse Ox O2 Delivery O2 Flow Rate FiO2 10/16/19 12:00 98.3 84 16 105/61 (76) 98 10/16/19 09:00 Room Air Laboratory Tests Test 10/16/19 05:20 White Blood Count 10.5 K/UL (4.8-10.8) Red Blood Count 3.71 M/UL (4.70-6.10) L Hemoglobin 11.4 G/DL (14.2-18.0) L Hematocrit 33.8 % (42.0-52.0) L Mean Corpuscular Volume 91 FL (80-99) Mean Corpuscular Hemoglobin 30.6 PG (27.0-31.0) Mean Corpuscular Hemoglobin Concent 33.6 G/DL (32.0-36.0) Red Cell Distribution Width 11.9 % (11.6-14.8) Platelet Count 229 K/UL (150-450) Mean Platelet Volume 7.3 FL (6.5-10.1) Neutrophils (%) (Auto) 72.5 % (45.0-75.0) Lymphocytes (%) (Auto) 19.2 % (20.0-45.0) L Monocytes (%) (Auto) 7.7 % (1.0-10.0) Eosinophils (%) (Auto) 0.1 % (0.0-3.0) Basophils (%) (Auto) 0.5 % (0.0-2.0) Sodium Level 140 MMOL/L (136-145) Potassium Level 4.6 MMOL/L (3.5-5.1) Chloride Level 105 MMOL/L (98-107) Carbon Dioxide Level 28 MMOL/L (21-32) Anion Gap 7 mmol/L (5-15) Blood Urea Nitrogen 27 mg/dL (7-18) H Creatinine 1.0 MG/DL (0.55-1.30) Estimat Glomerular Filtration Rate > 60 mL/min (>60) Glucose Level 209 MG/DL (74-106) H Calcium Level 8.3 MG/DL (8.5-10.1) L Microbiology Date/Time Source Procedure Growth Status 10/13/19 17:36 Blood Blood Culture - Preliminary NO GROWTH AFTER 48 HOURS Resulted 10/13/19 17:30 Blood Blood Culture - Preliminary NO GROWTH AFTER 48 HOURS Resulted Intake and Output 10/15/19 10/16/19 19:00 07:00 Intake Total 830 ml 236 ml Balance 830 ml 236 ml Intake Oral 720 ml 236 ml IV Total 110 ml # Voids 4 Objective PHYSICAL EXAMINATION: GENERAL: The patient is awake and responsive, in no acute distress. HEAD AND NECK: Pupils are equal and reactive to light. Extraocular muscles intact. Neck was supple. No JVD. LUNGS: Good air entry with no wheezing or rales. HEART: S1, S2. Distant heart sounds. No gallops. ABDOMEN: Soft, nondistended, and nontender. Mildly obese. EXTREMITIES: No cyanosis, clubbing, or edema NEUROLOGIC: Cranial nerves II through XII grossly grossly intact. Motor is 5/5 in all extremities. Gait was not assessed due to the patient's status. RECTAL: Refused and deferred. GENITOURINARY: Refused and deferred. PSYCHIATRIC: Mood and affect is calm. Assessment/Plan Assessment/Plan ASSESSMENT: 1. Uncontrolled diabetes type 2, possible due to underlying infection such as urinary tract infection. 2. urinary tract infection=ESBL E. Coli 3. Dehydration. 4. Acute kidney injury on chronic renal insufficiency. 5. Proteinuria. 6. Developmental delay. 7. Hypothyroidism. 8. Seizure disorder. 9. Morbid obesity. PLAN: 1. Admit the patient to the medical floor. 2. Start the patient on IV hydration. 3. Accu-Chek with sliding scale. 4. Monitor laboratory. 5. antibiotic=Zosyn. Follow up with culture. 6. DVT prophylaxis with heparin subcutaneous. 7. ID=Dr. Gutierrez. 8. Endocrinology = Reynold Almeida MD Oct 16, 2019 14:15
--- NOTE | 2019-10-16 15:46 | NUR ---
CASE MANAGEMENT:REVIEW 10/14/2019 SI:UNCONTROLLED DM. HYPERGLYCEMIA. 103.0 100 21 106/66 98% RA WBC 14.0 H/H 11.5/32.5 NA+134 BG 185 CA+ 8.0 MG 1.5 IS:IV ZOSYN Q8HR HEPARIN SQ BID KLONOPIN OP BID DEPAKOTE PO QHS STARLIX PO TIAC METFORMIN PO BID ACTOS PO QD JANUVIA PO AC \: 3E MED SURG UNIT DCP: HOME WHEN STABLE CASE MANAGEMENT:REVIEW 10/15/2019 SI:UNCONTROLLED DM. HYPERGLYCEMIA. 99.2 86 18 112/70 93% RA NA+ 135 BUN 24 BG 228 CA+7.7 H/H 11.4/33.2 C-REC PROT 24.6 IS:IV ZOSYN Q8HR HEPARIN SQ BID KLONOPIN OP BID DEPAKOTE PO QHS STARLIX PO TIAC METFORMIN PO BID ACTOS PO QD JANUVIA PO AC \: 3E MED SURG UNIT DCP: HOME WHEN STABLE CASE MANAGEMENT:REVIEW 10/16/2019 SI:UTI . UNCONTROLLED DM. HYPERGLYCEMIA. 98.3 84 16 105/61 98% RA H/H 11.4/33.8 BUN 27 BG 209 CA+8.3 IS:IV ZOSYN Q8HR HEPARIN SQ BID KLONOPIN OP BID DEPAKOTE PO QHS STARLIX PO TIAC METFORMIN PO BID ACTOS PO QD JANUVIA PO AC \: 3E [facility]G UNIT DCP: HOME WHEN STABLE
[2019-10-16 16:00] VITALS: BP 128/66
--- NOTE | 2019-10-16 18:59 | NUR ---
NURSE NOTES:WOUND CARE NOTES:Pt presented on admission with shearing to L buttocks(L)1.2cm x (W)0.5cm. Base of wound is moist and viable.Non-blanching erythema with scattered areas of hyperpigmentation from previous lesions noted to R and L buttocks.No other areas of skin breakdown noted. Tx.Plan: Apply Moisture Barrier paste to buttocks with each incontinence care. Apply Cavilon Skin Barrier to both heels. Cover each heel with Optifoam drsg. Change every 7d ays and prn. Reposition at least every 2hours or as tolerated. Off-load heels with pillow.
--- NOTE | 2019-10-16 19:10 | NUR ---
NURSE NOTES: Received report from Salma Peterson .Pt is sleeping but easily arousable , breaths even, and regular and unlabored at RA. Pt incontinent X2, pt had a BM. Pt has a R wrist with I.V fluids TKO, patent and asymptomatic , side rails padded for precaution , bed in low locked position, will continue to monitor
--- NOTE | 2019-10-16 19:22 | NUR ---
HAND-OFF: Report given to Kathleen MALCOLM.
[2019-10-16 20:00] VITALS: BP 119/67
[2019-10-17] VITALS: BP 103/61
[2019-10-17 04:00] VITALS: BP 127/75
[2019-10-17] MEDS: Nateglinide 60mg tab ORAL SCH ×3 (05:37→17:18)
[2019-10-17] MEDS: Piperacillin/Tazobactam 3.375 GM in NS 110 ML IVPB SCH (05:38)
[2019-10-17] MEDS: NovoLOG Insulin Flexpen SUBQ SCH ×4 (05:38→21:47)
[2019-10-17 05:41] LABS: BASOPHILS % (AUTO) 1.4 % (0.0-2.0); EOSINOPHILS % (AUTO) 0.1 % (0.0-3.0); HEMATOCRIT 32.8 % (42.0-52.0); HEMOGLOBIN 10.9 G/DL (14.2-18.0); LYMPHOCYTES % (AUTO) 14.5 % (20.0-45.0); MEAN CORPUSCULAR VOLUME 91 FL (80-99); MONOCYTES % (AUTO) 9.9 % (1.0-10.0); NEUTROPHILS % (AUTO) 74.2 % (45.0-75.0); PLATELET COUNT 193 K/UL (150-450); WHITE BLOOD COUNT 12.6 K/UL (4.8-10.8)
[2019-10-17 05:46] LABS: ANION GAP 9 mmol/L (5-15); BLOOD UREA NITROGEN 24 mg/dL (7-18); CALCIUM 7.7 MG/DL (8.5-10.1); CARBON DIOXIDE 25 MMOL/L (21-32); CHLORIDE 106 MMOL/L (98-107); POTASSIUM 4.5 MMOL/L (3.5-5.1); SODIUM 140 MMOL/L (136-145)
--- NOTE | 2019-10-17 07:07 | General Progress Note ---
Assessment/Plan Problem List: (1) Hypothyroid ICD Codes: E03.9 - Hypothyroidism, unspecified SNOMED: 74398979 (2) Hyperglycemia ICD Codes: R73.9 - Hyperglycemia, unspecified SNOMED: 25066934 (3) Uncontrolled diabetes mellitus ICD Codes: E11.65 - Type 2 diabetes mellitus with hyperglycemia SNOMED: 52501513, 654905981 Assessment/Plan: continue Starlix 120 mg ac tid continue Januvia 100 mg daily continue Actos 15 mg daily continue Metformin 1000 mg bid continue NISS ac / hs continue Levothyroxine 75 mcg daily Subjective Allergies: Coded Allergies: No Known Allergies (Unverified , 10/12/19) All Systems: reviewed and negative except above Subjective events noted glucose values improved Item Value Date Time Bedside Blood Glucose 125 mg/dl H 10/17/19 0538 Bedside Blood Glucose 160 mg/dl H 10/16/19 2124 Bedside Blood Glucose 166 mg/dl H 10/16/19 1716 Bedside Blood Glucose 131 mg/dl H 10/16/19 1148 Bedside Blood Glucose 200 mg/dl H 10/16/19 0608 Objective Last 24 Hour Vital Signs Date Time Temp Pulse Resp B/P (MAP) Pulse Ox O2 Delivery O2 Flow Rate FiO2 10/17/19 04:00 97.8 68 18 127/75 (92) 96 10/17/19 00:09 99.4 10/17/19 00:00 102.0 90 19 103/61 (75) 96 10/16/19 21:00 Room Air 10/16/19 20:00 98.9 99 19 119/67 (84) 96 10/16/19 16:00 98.8 88 16 128/66 (86) 98 10/16/19 12:00 98.3 84 16 105/61 (76) 98 10/16/19 10:05 102/66 10/16/19 09:00 Room Air 10/16/19 08:00 98.4 85 16 102/66 (78) 98 Intake and Output 10/16/19 10/17/19 19:00 07:00 Intake Total 820 ml Balance 820 ml Intake Oral 600 ml IV Total 220 ml # Voids 5 # Bowel Movements 1 Laboratory Tests 10/17/19 05:05: White Blood Count 12.6H, Red Blood Count 3.60L, Hemoglobin 10.9L, Hematocrit 32.8L, Mean Corpuscular Volume 91, Mean Corpuscular Hemoglobin 30.2, Mean Corpuscular Hemoglobin Concent 33.2, Red Cell Distribution Width 12.0, Platelet Count 193, Mean Platelet Volume 6.8, Neutrophils (%) (Auto) 74.2, Lymphocytes (% ) (Auto) 14.5L, Monocytes (%) (Auto) 9.9, Eosinophils (%) (Auto) 0.1, Basophils (%) (Auto) 1.4, Sodium Level 140, Potassium Level 4.5, Chloride Level 106, Carbon Dioxide Level 25, Anion Gap 9, Blood Urea Nitrogen 24H, Creatinine 1.0, Estimat Glomerular Filtration Rate > 60, Glucose Level 159H, Calcium Level 7.7L Height (Feet): 5 Height (Inches): 5.00 Weight (Pounds): 170 General Appearance: no apparent distress Neck: normal alignment Cardiovascular: normal rate Respiratory/Chest: lungs clear Abdomen: normal bowel sounds Objective Current Medications Medications (Trade) Dose Ordered Sig/Kelly Route PRN Reason Start Time Stop Time Status Last Admin Dose Admin Acetaminophen (Tylenol) 650 mg Q6H PRN ORAL Mild Pain/Temp > 100.5 10/14/19 06:00 11/13/19 05:59 10/16/19 23:39 Benazepril HCl (Lotensin) 10 mg DAILY ORAL 10/13/19 09:00 11/12/19 08:59 10/16/19 10:05 Clonazepam (KlonoPIN) 0.5 mg TWICE A DAY ORAL 10/13/19 09:00 10/20/19 08:59 10/16/19 17:15 Dextrose (Dextrose 50%) 25 ml Q30M PRN IV Hypoglycemia 10/13/19 04:00 11/12/19 03:59 Dextrose (Dextrose 50%) 50 ml Q30M PRN IV Hypoglycemia 10/13/19 04:00 11/12/19 03:59 Divalproex Sodium (Depakote) 1,750 mg BEDTIME ORAL 10/13/19 21:00 11/12/19 20:59 10/16/19 21:26 Heparin Sodium (Porcine) (Heparin 5000 units/ml) 5,000 units EVERY 12 HOURS SUBQ 10/13/19 09:00 11/12/19 08:59 10/16/19 21:23 Insulin Aspart (NovoLOG) BEFORE MEALS AND HS SUBQ 10/13/19 06:30 11/12/19 06:29 10/16/19 21:24 Levothyroxine Sodium (Synthroid) 75 mcg ACBREAKFAST ORAL 10/13/19 06:30 11/12/19 06:29 10/17/19 05:37 Metformin HCl (Glucophage) 1,000 mg BID ORAL 10/16/19 09:00 11/12/19 06:29 10/16/19 17:15 Nateglinide (Starlix) 120 mg TIAC ORAL 10/16/19 07:30 11/13/19 07:29 10/17/19 05:37 Pioglitazone HCl (Actos) 15 mg DAILY ORAL 10/13/19 09:00 11/12/19 08:59 10/16/19 10:04 Piperacillin Sod/ Tazobactam Sod 3.375 gm/Sodium Chloride 110 ml @ 27.5 mls/hr EVERY 8 HOURS IVPB 10/14/19 22:00 10/19/19 21:59 10/17/19 05:38 Pravastatin Sodium (Pravachol) 20 mg BEDTIME ORAL 10/13/19 21:00 11/12/19 20:59 10/16/19 21:26 Sitagliptin Phosphate (Januvia) 100 mg ACBREAKFAST ORAL 10/14/19 13:45 11/13/19 13:44 10/17/19 05:37 Zolpidem Tartrate (Ambien) 5 mg BEDTIME PRN ORAL Insomnia 10/13/19 04:00 10/20/19 03:59 Prosper Boateng MD Oct 17, 2019 07:07
--- NOTE | 2019-10-17 07:45 | NUR ---
NURSE NOTES: Received report from Kathleen MALCOLM. Patient is awake and oriented, no acute distress noted, no s/s of pain noted. IV running Zosyn per order, patient repositioned for comfort. Fall and skin precautions maintained. Side rails upx3, bed low and locked, call light within reach.
[2019-10-17 08:00] VITALS: BP 100/69
--- NOTE | 2019-10-17 08:01 | NUR ---
HAND-OFF: Report given to YUN Lema
[2019-10-17] MEDS: Benazepril 10mg tab ORAL SCH (09:24)
[2019-10-17] MEDS: metFORMIN 500mg tab ORAL SCH ×2 (09:24→17:18)
[2019-10-17] MEDS: clonazePAM 0.5mg tab ORAL SCH ×2 (09:24→17:18)
[2019-10-17] MEDS: Heparin 5000 units/ml inj SUBQ SCH ×2 (09:25→21:41)
--- NOTE | 2019-10-17 10:08 | NUR ---
NURSE NOTES: Noted flu swab ordered two days ago, called micro and according to lab swab was not collected, collected flu swab and transported to lab.
--- NOTE | 2019-10-17 10:14 | Infectious Diseases Prog Note ---
Assessment/Plan Assessment/Plan Assessment: SEpsis Fever, recurrent Leukocytosis, recurrent UTI -u/a wbc 2-4, nit +, leuk +1; ucx >100k ESBL E.coli (S Zosyn, Ertapenem, Amikacin) -CXR: No acute process -10/13 Bcx NTD Hyperglycemia; improving OCTAVIA, SP seizure disorder developmental delay Plan: Switch Zosyn #4 to IV AMikacin for ESBL E.coli UTI in view of fever and leukocytosis (there is interaction between carbapenem and valproic acid) -10/14 SP Ceftriaxone #2 -f/u cx -Monitor CBC/CMP, temperatures -aspiration precautions -If T >101, repeat 2 sets of Bcx Thank you for this consultation. Will continue to follow along with you. Subjective Allergies: Coded Allergies: No Known Allergies (Unverified , 10/12/19) Subjective Tm 102 mild leukocytosis recurrent Bcx NTD Objective Vital Signs Last 24 Hour Vital Signs Date Time Temp Pulse Resp B/P (MAP) Pulse Ox O2 Delivery O2 Flow Rate FiO2 10/17/19 09:24 100/69 10/17/19 08:00 98.1 86 18 100/69 (79) 96 10/17/19 04:00 97.8 68 18 127/75 (92) 96 10/17/19 00:09 99.4 10/17/19 00:00 102.0 90 19 103/61 (75) 96 10/16/19 21:00 Room Air 10/16/19 20:00 98.9 99 19 119/67 (84) 96 10/16/19 16:00 98.8 88 16 128/66 (86) 98 10/16/19 12:00 98.3 84 16 105/61 (76) 98 Height (Feet): 5 Height (Inches): 5.00 Weight (Pounds): 170 Objective GENERAL: The patient is awake and responsive, in no acute distress. HEAD AND NECK: Pupils are equal and reactive to light. Extraocular muscles intact. Neck was supple. No JVD. LUNGS: Good air entry with no wheezing or rales. HEART: S1, S2. Distant heart sounds. No gallops. ABDOMEN: Soft, nondistended, and nontender. Mildly obese. EXTREMITIES: No cyanosis, clubbing, or edema Laboratory Tests Test 10/17/19 05:05 White Blood Count 12.6 K/UL (4.8-10.8) H Red Blood Count 3.60 M/UL (4.70-6.10) L Hemoglobin 10.9 G/DL (14.2-18.0) L Hematocrit 32.8 % (42.0-52.0) L Mean Corpuscular Volume 91 FL (80-99) Mean Corpuscular Hemoglobin 30.2 PG (27.0-31.0) Mean Corpuscular Hemoglobin Concent 33.2 G/DL (32.0-36.0) Red Cell Distribution Width 12.0 % (11.6-14.8) Platelet Count 193 K/UL (150-450) Mean Platelet Volume 6.8 FL (6.5-10.1) Neutrophils (%) (Auto) 74.2 % (45.0-75.0) Lymphocytes (%) (Auto) 14.5 % (20.0-45.0) L Monocytes (%) (Auto) 9.9 % (1.0-10.0) Eosinophils (%) (Auto) 0.1 % (0.0-3.0) Basophils (%) (Auto) 1.4 % (0.0-2.0) Sodium Level 140 MMOL/L (136-145) Potassium Level 4.5 MMOL/L (3.5-5.1) Chloride Level 106 MMOL/L (98-107) Carbon Dioxide Level 25 MMOL/L (21-32) Anion Gap 9 mmol/L (5-15) Blood Urea Nitrogen 24 mg/dL (7-18) H Creatinine 1.0 MG/DL (0.55-1.30) Estimat Glomerular Filtration Rate > 60 mL/min (>60) Glucose Level 159 MG/DL (74-106) H Calcium Level 7.7 MG/DL (8.5-10.1) L Current Medications Medications (Trade) Dose Ordered Sig/Kelly Route PRN Reason Start Time Stop Time Status Last Admin Dose Admin Acetaminophen (Tylenol) 650 mg Q6H PRN ORAL Mild Pain/Temp > 100.5 10/14/19 06:00 11/13/19 05:59 10/16/19 23:39 Benazepril HCl (Lotensin) 10 mg DAILY ORAL 10/13/19 09:00 11/12/19 08:59 10/17/19 09:24 Clonazepam (KlonoPIN) 0.5 mg TWICE A DAY ORAL 10/13/19 09:00 10/20/19 08:59 10/17/19 09:24 Dextrose (Dextrose 50%) 25 ml Q30M PRN IV Hypoglycemia 10/13/19 04:00 11/12/19 03:59 Dextrose (Dextrose 50%) 50 ml Q30M PRN IV Hypoglycemia 10/13/19 04:00 11/12/19 03:59 Divalproex Sodium (Depakote) 1,750 mg BEDTIME ORAL 10/13/19 21:00 11/12/19 20:59 10/16/19 21:26 Heparin Sodium (Porcine) (Heparin 5000 units/ml) 5,000 units EVERY 12 HOURS SUBQ 10/13/19 09:00 11/12/19 08:59 10/17/19 09:25 Insulin Aspart (NovoLOG) BEFORE MEALS AND HS SUBQ 10/13/19 06:30 11/12/19 06:29 10/16/19 21:24 Levothyroxine Sodium (Synthroid) 75 mcg ACBREAKFAST ORAL 10/13/19 06:30 11/12/19 06:29 10/17/19 05:37 Metformin HCl (Glucophage) 1,000 mg BID ORAL 10/16/19 09:00 11/12/19 06:29 10/17/19 09:24 Nateglinide (Starlix) 120 mg TIAC ORAL 10/16/19 07:30 11/13/19 07:29 10/17/19 05:37 Pioglitazone HCl (Actos) 15 mg DAILY ORAL 10/13/19 09:00 11/12/19 08:59 10/17/19 09:24 Piperacillin Sod/ Tazobactam Sod 3.375 gm/Sodium Chloride 110 ml @ 27.5 mls/hr EVERY 8 HOURS IVPB 10/14/19 22:00 10/19/19 21:59 10/17/19 05:38 Pravastatin Sodium (Pravachol) 20 mg BEDTIME ORAL 10/13/19 21:00 11/12/19 20:59 10/16/19 21:26 Sitagliptin Phosphate (Januvia) 100 mg ACBREAKFAST ORAL 10/14/19 13:45 11/13/19 13:44 10/17/19 05:37 Zolpidem Tartrate (Ambien) 5 mg BEDTIME PRN ORAL Insomnia 10/13/19 04:00 10/20/19 03:59 Roxana Gutierrez M.D. Oct 17, 2019 10:14
[2019-10-17] MEDS ORDERED: Amikacin Rx to dose MISC PRN (10:15)
--- NOTE | 2019-10-17 10:25 | NUR ---
NURSE NOTES: Patient coughed with thin liquids and food, notified Dr. Gutierrez, orders received and entered.
--- NOTE | 2019-10-17 11:46 | Pulmonology Progress Note ---
Assessment/Plan Problems: (1) Fever (2) UTI (urinary tract infection) (3) Renal failure (4) Uncontrolled diabetes mellitus Assessment/Plan spiked temp today to 102bs better check cultures again abx by ID check electrolytes BS better controlled Subjective Interval Events: comfortable Allergies: Coded Allergies: No Known Allergies (Unverified , 10/12/19) Objective Last 24 Hour Vital Signs Date Time Temp Pulse Resp B/P (MAP) Pulse Ox O2 Delivery O2 Flow Rate FiO2 10/17/19 09:24 100/69 10/17/19 08:00 98.1 86 18 100/69 (79) 96 10/17/19 04:00 97.8 68 18 127/75 (92) 96 10/17/19 00:09 99.4 10/17/19 00:00 102.0 90 19 103/61 (75) 96 10/16/19 21:00 Room Air 10/16/19 20:00 98.9 99 19 119/67 (84) 96 10/16/19 16:00 98.8 88 16 128/66 (86) 98 10/16/19 12:00 98.3 84 16 105/61 (76) 98 Intake and Output 10/16/19 10/17/19 19:00 07:00 Intake Total 820 ml 434 ml Balance 820 ml 434 ml Intake Oral 600 ml 434 ml IV Total 220 ml # Voids 5 2 # Bowel Movements 1 General Appearance: WD/WN HEENT: normocephalic, atraumatic Respiratory/Chest: chest wall non-tender, lungs clear, no respiratory distress Cardiovascular: normal rate, regular rhythm Abdomen: normal bowel sounds, soft, non tender Genitourinary: normal external genitalia Extremities: no clubbing Skin: no rash Neurologic/Psychiatric: director of perioperative services II-XII grossly normal Microbiology Date/Time Source Procedure Growth Status 10/17/19 10:00 Nasal Nares - Final Complete 10/17/19 10:00 Nasal Nares - Final Complete Laboratory Tests 10/17/19 05:05: White Blood Count 12.6H, Red Blood Count 3.60L, Hemoglobin 10.9L, Hematocrit 32.8L, Mean Corpuscular Volume 91, Mean Corpuscular Hemoglobin 30.2, Mean Corpuscular Hemoglobin Concent 33.2, Red Cell Distribution Width 12.0, Platelet Count 193, Mean Platelet Volume 6.8, Neutrophils (%) (Auto) 74.2, Lymphocytes (% ) (Auto) 14.5L, Monocytes (%) (Auto) 9.9, Eosinophils (%) (Auto) 0.1, Basophils (%) (Auto) 1.4, Sodium Level 140, Potassium Level 4.5, Chloride Level 106, Carbon Dioxide Level 25, Anion Gap 9, Blood Urea Nitrogen 24H, Creatinine 1.0, Estimat Glomerular Filtration Rate > 60, Glucose Level 159H, Calcium Level 7.7L Current Medications Medications (Trade) Dose Ordered Sig/Kelly Route PRN Reason Start Time Stop Time Status Last Admin Dose Admin Acetaminophen (Tylenol) 650 mg Q6H PRN ORAL Mild Pain/Temp > 100.5 10/14/19 06:00 11/13/19 05:59 10/16/19 23:39 Amikacin Protocol (Amikacin pharmacy to dose) 1 ea DAILY PRN MISC Per rx protocol 10/17/19 10:15 11/16/19 10:14 Amikacin Sulfate 900 mg/Sodium Chloride 113.6 ml @ 113.6 mls/ hr Q24H IV 10/17/19 12:00 10/24/19 11:59 Benazepril HCl (Lotensin) 10 mg DAILY ORAL 10/13/19 09:00 11/12/19 08:59 10/17/19 09:24 Clonazepam (KlonoPIN) 0.5 mg TWICE A DAY ORAL 10/13/19 09:00 10/20/19 08:59 10/17/19 09:24 Dextrose (Dextrose 50%) 25 ml Q30M PRN IV Hypoglycemia 10/13/19 04:00 11/12/19 03:59 Dextrose (Dextrose 50%) 50 ml Q30M PRN IV Hypoglycemia 10/13/19 04:00 11/12/19 03:59 Divalproex Sodium (Depakote) 1,750 mg BEDTIME ORAL 10/13/19 21:00 11/12/19 20:59 10/16/19 21:26 Heparin Sodium (Porcine) (Heparin 5000 units/ml) 5,000 units EVERY 12 HOURS SUBQ 10/13/19 09:00 11/12/19 08:59 10/17/19 09:25 Insulin Aspart (NovoLOG) BEFORE MEALS AND HS SUBQ 10/13/19 06:30 11/12/19 06:29 10/16/19 21:24 Levothyroxine Sodium (Synthroid) 75 mcg ACBREAKFAST ORAL 10/13/19 06:30 11/12/19 06:29 10/17/19 05:37 Metformin HCl (Glucophage) 1,000 mg BID ORAL 10/16/19 09:00 11/12/19 06:29 10/17/19 09:24 Nateglinide (Starlix) 120 mg TIAC ORAL 10/16/19 07:30 11/13/19 07:29 10/17/19 05:37 Pioglitazone HCl (Actos) 15 mg DAILY ORAL 10/13/19 09:00 11/12/19 08:59 10/17/19 09:24 Pravastatin Sodium (Pravachol) 20 mg BEDTIME ORAL 10/13/19 21:00 11/12/19 20:59 10/16/19 21:26 Sitagliptin Phosphate (Januvia) 100 mg ACBREAKFAST ORAL 10/14/19 13:45 11/13/19 13:44 10/17/19 05:37 Zolpidem Tartrate (Ambien) 5 mg BEDTIME PRN ORAL Insomnia 10/13/19 04:00 10/20/19 03:59 Thomas Velarde MD Oct 17, 2019 11:46
[2019-10-17 12:00] VITALS: BP 124/67
--- NOTE | 2019-10-17 12:10 | NUR ---
NURSE NOTES: Per order from Dr. Velarde, patient to be NPO pending speech eval due to aspiration risk. Order entered.
[2019-10-17] MEDS: Amikacin 900 MG in NS 110 ML IV SCH (12:26)
--- NOTE | 2019-10-17 13:05 | NUR ---
CASE MANAGEMENT:REVIEW 10/17/2019 SI:FEVER . SEPSIS . UTI . UNCONTROLLED DM. HYPERGLYCEMIA. 98.1 86 18 100/69 96% RA WBC 12.6 H/H 10.9/32.8 BUN 24 BG 159 CA+7.7 IS:IV ZOSYN Q8HR IV AMIKACIN Q24HR HEPARIN SQ BID LOTENSIN PO QD KLONOPIN OP BID DEPAKOTE PO QHS ACTOS PO QD STARLIX PO TIAC METFORMIN PO BID NOVOLOG SQ AC&HS ACTOS PO QD JANUVIA PO AC \: 3E MED SURG UNIT DCP: HOME WHEN STABLE
--- NOTE | 2019-10-17 14:18 | Diagnostic Imaging Report ---
Indication: Cough Technique: One view of the chest Comparison: 10/12/2019 Findings: The heart is enlarged. There are bilateral old healed rib fracture deformities. No acute infiltrates, effusions, or congestion. Impression: Cardiomegaly. No acute process
--- NOTE | 2019-10-17 15:37 | Internal Med Progress Note ---
Subjective Date of Service: Oct 17, 2019 Physician Name Reynold Burton Attending Physician Ankush Hoffman MD Current Medications Medications (Trade) Dose Ordered Sig/Kelly Route PRN Reason Start Time Stop Time Status Last Admin Dose Admin Acetaminophen (Tylenol) 650 mg Q6H PRN ORAL Mild Pain/Temp > 100.5 10/14/19 06:00 11/13/19 05:59 10/16/19 23:39 Amikacin Protocol (Amikacin pharmacy to dose) 1 ea DAILY PRN MISC Per rx protocol 10/17/19 10:15 11/16/19 10:14 Amikacin Sulfate 900 mg/Sodium Chloride 113.6 ml @ 113.6 mls/ hr Q24H IV 10/17/19 12:00 10/24/19 11:59 10/17/19 12:26 Benazepril HCl (Lotensin) 10 mg DAILY ORAL 10/13/19 09:00 11/12/19 08:59 10/17/19 09:24 Clonazepam (KlonoPIN) 0.5 mg TWICE A DAY ORAL 10/13/19 09:00 10/20/19 08:59 10/17/19 09:24 Dextrose (Dextrose 50%) 25 ml Q30M PRN IV Hypoglycemia 10/13/19 04:00 11/12/19 03:59 Dextrose (Dextrose 50%) 50 ml Q30M PRN IV Hypoglycemia 10/13/19 04:00 11/12/19 03:59 Divalproex Sodium (Depakote) 1,750 mg BEDTIME ORAL 10/13/19 21:00 11/12/19 20:59 10/16/19 21:26 Heparin Sodium (Porcine) (Heparin 5000 units/ml) 5,000 units EVERY 12 HOURS SUBQ 10/13/19 09:00 11/12/19 08:59 10/17/19 09:25 Insulin Aspart (NovoLOG) BEFORE MEALS AND HS SUBQ 10/13/19 06:30 11/12/19 06:29 10/17/19 12:27 Levothyroxine Sodium (Synthroid) 75 mcg ACBREAKFAST ORAL 10/13/19 06:30 11/12/19 06:29 10/17/19 05:37 Metformin HCl (Glucophage) 1,000 mg BID ORAL 10/16/19 09:00 11/12/19 06:29 10/17/19 09:24 Nateglinide (Starlix) 120 mg TIAC ORAL 10/16/19 07:30 11/13/19 07:29 10/17/19 12:26 Pioglitazone HCl (Actos) 15 mg DAILY ORAL 10/13/19 09:00 11/12/19 08:59 10/17/19 09:24 Pravastatin Sodium (Pravachol) 20 mg BEDTIME ORAL 10/13/19 21:00 11/12/19 20:59 10/16/19 21:26 Sitagliptin Phosphate (Januvia) 100 mg ACBREAKFAST ORAL 10/14/19 13:45 11/13/19 13:44 10/17/19 05:37 Zolpidem Tartrate (Ambien) 5 mg BEDTIME PRN ORAL Insomnia 10/13/19 04:00 10/20/19 03:59 Allergies: Coded Allergies: No Known Allergies (Unverified , 10/12/19) ROS Limited/Unobtainable: No Constitutional: Reports: no symptoms HEENT: Reports: no symptoms Cardiovascular: Reports: no symptoms Respiratory: Reports: no symptoms Gastrointestinal/Abdominal: Reports: no symptoms Genitourinary: Reports: no symptoms Neurologic/Psychiatric: Reports: no symptoms Subjective 54 YO M admitted with uncontrolled diabetes, now UTI. Cover for Int Ramesh-Dr Hoffman Objective Last Vital Signs Date Time Temp Pulse Resp B/P (MAP) Pulse Ox O2 Delivery O2 Flow Rate FiO2 10/17/19 12:00 99.0 85 18 124/67 (86) 95 10/17/19 09:00 Room Air Laboratory Tests Test 10/17/19 05:05 White Blood Count 12.6 K/UL (4.8-10.8) H Red Blood Count 3.60 M/UL (4.70-6.10) L Hemoglobin 10.9 G/DL (14.2-18.0) L Hematocrit 32.8 % (42.0-52.0) L Mean Corpuscular Volume 91 FL (80-99) Mean Corpuscular Hemoglobin 30.2 PG (27.0-31.0) Mean Corpuscular Hemoglobin Concent 33.2 G/DL (32.0-36.0) Red Cell Distribution Width 12.0 % (11.6-14.8) Platelet Count 193 K/UL (150-450) Mean Platelet Volume 6.8 FL (6.5-10.1) Neutrophils (%) (Auto) 74.2 % (45.0-75.0) Lymphocytes (%) (Auto) 14.5 % (20.0-45.0) L Monocytes (%) (Auto) 9.9 % (1.0-10.0) Eosinophils (%) (Auto) 0.1 % (0.0-3.0) Basophils (%) (Auto) 1.4 % (0.0-2.0) Sodium Level 140 MMOL/L (136-145) Potassium Level 4.5 MMOL/L (3.5-5.1) Chloride Level 106 MMOL/L (98-107) Carbon Dioxide Level 25 MMOL/L (21-32) Anion Gap 9 mmol/L (5-15) Blood Urea Nitrogen 24 mg/dL (7-18) H Creatinine 1.0 MG/DL (0.55-1.30) Estimat Glomerular Filtration Rate > 60 mL/min (>60) Glucose Level 159 MG/DL (74-106) H Calcium Level 7.7 MG/DL (8.5-10.1) L Microbiology Date/Time Source Procedure Growth Status 10/17/19 10:00 Nasal Nares - Final Complete 10/17/19 10:00 Nasal Nares - Final Complete Intake and Output 10/16/19 10/17/19 19:00 07:00 Intake Total 820 ml 434 ml Balance 820 ml 434 ml Intake Oral 600 ml 434 ml IV Total 220 ml # Voids 5 2 # Bowel Movements 1 Objective PHYSICAL EXAMINATION: GENERAL: The patient is awake and responsive, in no acute distress. HEAD AND NECK: Pupils are equal and reactive to light. Extraocular muscles intact. Neck was supple. No JVD. LUNGS: Good air entry with no wheezing or rales. HEART: S1, S2. Distant heart sounds. No gallops. ABDOMEN: Soft, nondistended, and nontender. Mildly obese. EXTREMITIES: No cyanosis, clubbing, or edema NEUROLOGIC: Cranial nerves II through XII grossly grossly intact. Motor is 5/5 in all extremities. Gait was not assessed due to the patient's status. RECTAL: Refused and deferred. GENITOURINARY: Refused and deferred. PSYCHIATRIC: Mood and affect is calm. Assessment/Plan Assessment/Plan ASSESSMENT: 1. Uncontrolled diabetes type 2, possible due to underlying infection such as urinary tract infection. 2. urinary tract infection=ESBL E. Coli 3. Dehydration. 4. Acute kidney injury on chronic renal insufficiency. 5. Proteinuria. 6. Developmental delay. 7. Hypothyroidism. 8. Seizure disorder. 9. Morbid obesity. PLAN: 1. Admit the patient to the medical floor. 2. Start the patient on IV hydration. 3. Accu-Chek with sliding scale. 4. Monitor laboratory. 5. antibiotic=Amikacin per ID 6. DVT prophylaxis with heparin subcutaneous. 7. ID=Dr. Gutierrez. 8. Endocrinology = Reynold Almeida MD Oct 17, 2019 15:37
[2019-10-17 16:00] VITALS: BP 117/71
--- NOTE | 2019-10-17 16:02 | NUR ---
*-* INSURANCE *-* ALL CLINICALS AND REVIEWS HAVE BEEN FAXED TO: [employer] KENNEL MANAGER ASSIGNED AT THIS TIME P- [phone] F- [phone]...REVIEW/CLINICAL
[2019-10-17] MEDS ORDERED: Varibar Honey 250ml MC PRN (16:45)
[2019-10-17] MEDS ORDERED: Varibar Nectar 240ml MC PRN (16:45)
[2019-10-17] MEDS ORDERED: Varibar Pudding 230ml MC PRN (16:45)
--- NOTE | 2019-10-17 16:55 | NUR ---
ST NOTE: REFERRED FOR SWALLOW EVAL BY DR LEBRON, SEE FULL REPORT TO FOLLOW. 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 BETTER TOLERANCE WITH ONE SIP AT A TIME FOR EACH CONSISTENCY. GROSSLY FUNCTIONAL WITH PUREED TSP SLOWER CHEWING MASTICATED SOLIDS AND TENDS TO TALK WITH FOOD IN HIS MOUTH. NO OVERT ASPIRATION BUT HAS RISK PATIENT ADMITS THAT HE WILL CHOKE ON FOOD WHEN HE EATS TOO FAST AND TAKES TOO MUCH FOOD AT A TIME. POOR ABILTY TO MONITOR HIS RATE AND AMOUNT OF INTAKE DUE TO HIS DEVELOPMENTAL DISABILITY. RECOMMENDATIONS: COMPLETE MODIFIED BARIUM SWALLOW STUDY INPATIENT OR OUTPATIENT IF D/C (DO NOT HOLD UP D/C FOR THIS STUDY). STUDY APPROVED BY DR. BERTRAND. [facility] REGULAR TEXTURE DIET AND THIN LIQUIDS TO A SAFER CONSISTENCY OF MECH SOFT GROUND AND NECTAR THICK LIQUIDS WITH POSTED ASPIRATION PRECAUTIONS. CRUSH MEDS AND ADD TO APPLESAUCE FOR NOW. EDUCATED/TRAINED RN MARY IN POSTED PRECAUTIONS.
--- NOTE | 2019-10-17 17:00 | NUR ---
NURSE NOTES: Informed Dr. Velarde of patient's swallow eval result, received new diet order.
--- NOTE | 2019-10-17 19:40 | NUR ---
NURSE NOTES: Receive a report from YUN Souza. Pt is awake but disoriented. No acute distress noted. Denies any pain. On contact isolation d/t ESBL in urine. No chilling or febrile sensation. Sacrum dressing kept clean. Call light within reach. Will continue to monitor.
--- NOTE | 2019-10-17 19:43 | NUR ---
HAND-OFF: Report given to Komal MALCOLM.
[2019-10-17 20:00] VITALS: BP 97/61
--- NOTE | 2019-10-17 21:00 | NUR ---
NURSE NOTES: Given medication. No aspiration noted with having nectar thickening water. Keep head up elevated. Will continue to monitor.
[2019-10-18] VITALS: BP 101/58
[2019-10-18 04:00] VITALS: BP 134/81
[2019-10-18 05:53] LABS: BASOPHILS % (AUTO) 1.2 % (0.0-2.0); EOSINOPHILS % (AUTO) 0.1 % (0.0-3.0); HEMATOCRIT 31.9 % (42.0-52.0); HEMOGLOBIN 10.6 G/DL (14.2-18.0); LYMPHOCYTES % (AUTO) 19.1 % (20.0-45.0); MEAN CORPUSCULAR VOLUME 90 FL (80-99); MONOCYTES % (AUTO) 11.3 % (1.0-10.0); NEUTROPHILS % (AUTO) 68.3 % (45.0-75.0); PLATELET COUNT 192 K/UL (150-450); RED BLOOD COUNT 3.54 M/UL (4.70-6.10); RED CELL DISTRIBUTION WIDTH 11.8 % (11.6-14.8); WHITE BLOOD COUNT 10.1 K/UL (4.8-10.8)
[2019-10-18 06:03] LABS: ANION GAP 6 mmol/L (5-15); BLOOD UREA NITROGEN 19 mg/dL (7-18); CALCIUM 7.8 MG/DL (8.5-10.1); CARBON DIOXIDE 27 MMOL/L (21-32); CHLORIDE 106 MMOL/L (98-107); CREATININE 0.9 MG/DL (0.55-1.30); POTASSIUM 5.1 MMOL/L (3.5-5.1); SODIUM 139 MMOL/L (136-145)
[2019-10-18] MEDS: Nateglinide 60mg tab ORAL SCH ×2 (06:32→12:12)
[2019-10-18] MEDS: NovoLOG Insulin Flexpen SUBQ SCH ×4 (06:34→21:45)
--- NOTE | 2019-10-18 07:26 | NUR ---
HAND-OFF: Report given to DIVYA Cooper. Round is done.
--- NOTE | 2019-10-18 07:30 | NUR ---
NURSE NOTES: Receive a report from YUN Sauceda. Pt is awake, alert but disoriented. No acute cardio-resp distress noted. HOB elevated. Sacrum dressing kept clean, dry and intact. . Call light within reach. bed is in the lowest position. siderails are upx3. Will continue to monitor.
[2019-10-18 08:00] VITALS: BP 119/59
[2019-10-18] MEDS: clonazePAM 0.5mg tab ORAL SCH ×2 (08:36→17:11)
[2019-10-18] MEDS: metFORMIN 500mg tab ORAL SCH ×2 (08:37→17:11)
[2019-10-18] MEDS: Benazepril 10mg tab ORAL SCH (08:37)
[2019-10-18] MEDS: Heparin 5000 units/ml inj SUBQ SCH ×2 (08:39→21:41)
--- NOTE | 2019-10-18 10:16 | NUR ---
NURSE NOTES: off the unit for video swallow.
--- NOTE | 2019-10-18 11:16 | Infectious Diseases Prog Note ---
Assessment/Plan Assessment/Plan Assessment: SEpsis Fever, recurrent; improving Leukocytosis, recurrent; SP UTI -u/a wbc 2-4, nit +, leuk +1; ucx >100k ESBL E.coli (S Zosyn, Ertapenem, Amikacin) -CXR: No acute process -10/13 Bcx NTD -influenza sc neg Hyperglycemia; improving OCTAVIA, SP seizure disorder developmental delay Plan: Continue IV AMikacin #2/5-7 for ESBL E.coli UTI in view of fever and leukocytosis (there is interaction between carbapenem and valproic acid) -10/17 SP Zosyn #4 -10/14 SP Ceftriaxone #2 -f/u cx -Monitor CBC/CMP, temperatures -aspiration precautions -If T >101, repeat 2 sets of Bcx Thank you for this consultation. Will continue to follow along with you. Subjective Allergies: Coded Allergies: No Known Allergies (Unverified , 10/12/19) Subjective afebrile >36hrs mild leukocytosis resolved Bcx NTD Objective Vital Signs Last 24 Hour Vital Signs Date Time Temp Pulse Resp B/P (MAP) Pulse Ox O2 Delivery O2 Flow Rate FiO2 10/18/19 08:37 119/59 10/18/19 08:30 Room Air 10/18/19 08:00 99.2 82 20 119/59 (79) 94 10/18/19 04:00 98.3 74 18 134/81 (98) 93 10/18/19 00:00 98.1 82 16 101/58 (72) 92 82 10/17/19 21:00 Room Air 10/17/19 20:00 98.3 71 16 97/61 (73) 93 10/17/19 16:00 98.4 80 18 117/71 (86) 94 10/17/19 12:00 99.0 85 18 124/67 (86) 95 Height (Feet): 5 Height (Inches): 5.00 Weight (Pounds): 169 Objective GENERAL: The patient is awake and responsive, in no acute distress. HEAD AND NECK: Pupils are equal and reactive to light. Extraocular muscles intact. Neck was supple. No JVD. LUNGS: Good air entry with no wheezing or rales. HEART: S1, S2. Distant heart sounds. No gallops. ABDOMEN: Soft, nondistended, and nontender. Mildly obese. EXTREMITIES: No cyanosis, clubbing, or edema Microbiology Date/Time Source Procedure Growth Status 10/17/19 10:00 Nasal Nares - Final Complete 10/17/19 10:00 Nasal Nares - Final Complete Laboratory Tests Test 10/18/19 04:45 White Blood Count 10.1 K/UL (4.8-10.8) Red Blood Count 3.54 M/UL (4.70-6.10) L Hemoglobin 10.6 G/DL (14.2-18.0) L Hematocrit 31.9 % (42.0-52.0) L Mean Corpuscular Volume 90 FL (80-99) Mean Corpuscular Hemoglobin 30.0 PG (27.0-31.0) Mean Corpuscular Hemoglobin Concent 33.3 G/DL (32.0-36.0) Red Cell Distribution Width 11.8 % (11.6-14.8) Platelet Count 192 K/UL (150-450) Mean Platelet Volume 6.9 FL (6.5-10.1) Neutrophils (%) (Auto) 68.3 % (45.0-75.0) Lymphocytes (%) (Auto) 19.1 % (20.0-45.0) L Monocytes (%) (Auto) 11.3 % (1.0-10.0) H Eosinophils (%) (Auto) 0.1 % (0.0-3.0) Basophils (%) (Auto) 1.2 % (0.0-2.0) Sodium Level 139 MMOL/L (136-145) Potassium Level 5.1 MMOL/L (3.5-5.1) Chloride Level 106 MMOL/L (98-107) Carbon Dioxide Level 27 MMOL/L (21-32) Anion Gap 6 mmol/L (5-15) Blood Urea Nitrogen 19 mg/dL (7-18) H Creatinine 0.9 MG/DL (0.55-1.30) Estimat Glomerular Filtration Rate > 60 mL/min (>60) Glucose Level 199 MG/DL (74-106) H Calcium Level 7.8 MG/DL (8.5-10.1) L Random Amikacin Level Pending Current Medications Medications (Trade) Dose Ordered Sig/Kelly Route PRN Reason Start Time Stop Time Status Last Admin Dose Admin Acetaminophen (Tylenol) 650 mg Q6H PRN ORAL Mild Pain/Temp > 100.5 10/14/19 06:00 11/13/19 05:59 10/16/19 23:39 Amikacin Protocol (Amikacin pharmacy to dose) 1 ea DAILY PRN MISC Per rx protocol 10/17/19 10:15 11/16/19 10:14 Amikacin Sulfate 900 mg/Sodium Chloride 113.6 ml @ 113.6 mls/ hr Q24H IV 10/17/19 12:00 10/24/19 11:59 10/17/19 12:26 Barium Sulfate (Varibar Honey) 250 ml NOW PRN Radiology Procedure 10/17/19 16:45 10/20/19 16:45 Barium Sulfate (Varibar [place]) 230 ml NOW PRN Radiology Procedure 10/17/19 16:45 10/20/19 16:45 Barium Sulfate (Varibar Pudding) 230 ml NOW PRN Radiology Procedure 10/17/19 16:45 10/20/19 16:45 Benazepril HCl (Lotensin) 10 mg DAILY ORAL 10/13/19 09:00 11/12/19 08:59 10/18/19 08:37 Clonazepam (KlonoPIN) 0.5 mg TWICE A DAY ORAL 10/13/19 09:00 10/20/19 08:59 10/18/19 08:36 Dextrose (Dextrose 50%) 25 ml Q30M PRN IV Hypoglycemia 10/13/19 04:00 11/12/19 03:59 Dextrose (Dextrose 50%) 50 ml Q30M PRN IV Hypoglycemia 10/13/19 04:00 11/12/19 03:59 Divalproex Sodium (Depakote) 1,750 mg BEDTIME ORAL 10/13/19 21:00 11/12/19 20:59 10/17/19 21:39 Heparin Sodium (Porcine) (Heparin 5000 units/ml) 5,000 units EVERY 12 HOURS SUBQ 10/13/19 09:00 11/12/19 08:59 10/18/19 08:39 Insulin Aspart (NovoLOG) BEFORE MEALS AND HS SUBQ 10/13/19 06:30 11/12/19 06:29 10/18/19 06:34 Levothyroxine Sodium (Synthroid) 75 mcg ACBREAKFAST ORAL 10/13/19 06:30 11/12/19 06:29 10/18/19 06:32 Metformin HCl (Glucophage) 1,000 mg BID ORAL 10/16/19 09:00 11/12/19 06:29 10/18/19 08:37 Nateglinide (Starlix) 120 mg TIAC ORAL 10/16/19 07:30 11/13/19 07:29 10/18/19 06:32 Pioglitazone HCl (Actos) 15 mg DAILY ORAL 10/13/19 09:00 11/12/19 08:59 10/18/19 08:36 Pravastatin Sodium (Pravachol) 20 mg BEDTIME ORAL 10/13/19 21:00 11/12/19 20:59 10/17/19 21:38 Sitagliptin Phosphate (Januvia) 100 mg ACBREAKFAST ORAL 10/14/19 13:45 11/13/19 13:44 10/18/19 06:32 Zolpidem Tartrate (Ambien) 5 mg BEDTIME PRN ORAL Insomnia 10/13/19 04:00 10/20/19 03:59 Roxana Gutierrez M.D. Oct 18, 2019 11:16
[2019-10-18 12:00] VITALS: BP 107/68
--- NOTE | 2019-10-18 12:01 | NUR ---
RD ASSESSMENT & RECOMMENDATIONS SEE CARE ACTIVITY FOR COMPLETE ASSESSMENT DAILY ESTIMATED NEEDS: Needs based on DM, 65kg adj 25-30 kcals/kg 5499-5586 total kcals 1-1.5 g protein/kg 65-98 g total protein 25-30 mL/kg 9299-6697 total fluid mLs NUTRITION DIAGNOSIS: Altered nutrition related lab values r/t diabetes as evidenced by A1C 11.4, u glu 3+ on adm. PO DIET RECOMMENDATIONS: Maintain CCHO LOW DIET (texture per BALANCE WHEEL SCREW HOLE TAPPER) ADDITIONAL RECOMMENDATIONS: Add GLUCERNA 1 tetra elisa daily w/ variable po intake Continuous accuchecks for hypoglycemia- pt on 4 oral hypoglycemics Monitor renal labs/ fxn; need for dietary restriction Texture per angiography technologist
--- NOTE | 2019-10-18 12:04 | NUR ---
ST NOTES: COMPLETED MODIFIED BARIUM SWALLOW STUDY, SEE FULL REPORT TO FOLLOW. INITIAL IMPRESSIONS: MILD ORAL PREP AND OROPHARYNGEAL DYSPHAGIA WITH OVERALL INCREASED TRANSIT TIMES DUE TO SENSORIMOTOR DEFICITS AND COMPOUNDED BY COGNITIVE-BEHAVIORAL DEFICITS (TAKES LARGE SIPS, WON'T FOLLOW COMMANDS AT TIMES "HOLD BOLUS" OR "TAKE SMALL SIPS ONE AT A TIME"). NO ASPIRATION NOR SIGNIFICANT LARYNGEAL PENETRATION (LP) WITH ALL CONSISTENCIES AND AMOUNTS BUT HAS HIGH RISK PARTICULARLY IF PRECAUTIONS AND SWALLOW STRATEGIES ARE NOT FOLLOWED. HIGHEST RISK WITH THIN LIQUIDS AND NECTAR THICK LIQUIDS SEQUENTIAL SIPS VIA STRAW (TRACE SILENT LP BEFORE THE SWALLOW ABOVE VOCAL FOLDS WITH EJECTION DUE TO DELAYED SWALLOW AND LATE CLOSURE OF LARYNGEAL VESTIBULE). ASPIRATION/PENETRATION RISKS ARE HIGH AND SWALLOW IS LESS EFFICIENT DUE TO THE FOLLOWING COMPONENTS/DEFICITS: Oral prep and oral Impairment Tongue Control Bolus prep/mastication (IMPULSIVE VERTICAL CHEW) Bolus transport/lingual motion Oral residue Init. pharyngeal swallow Pharyngeal Impairment Laryngeal elevation (LE) Ant. hyoid excursion Tongue base retraction Pharyngeal residue Decreased pharyngeal sensation Esophageal Impairment/DYSPHAGIA TRACE ESOPHAGEAL BACKFLOW THROUGH THE PHARYNGOESOPHAGEAL SEGMENT OPENING WITH ALL CONSISTENCIES AND AMOUNTS (WITH AND W/O COUGH). CRICOPHARYNGEAL BAR DOES NOT SIGNIFICANTLY OBSTRUCT BOLUS FLOW AND QUESTIONABLY REDIRECTING SOME TRACE BOLUS UPWARD. TRIAL TX: POOR FOLLOWING COMMANDS, BENEFITS FROM SPONTANEOUS EFFORTFUL SWALLOW, EXTRA HARD SWALLOW, ONE SMALL SIP AT A TIME, SAFEST WITH NECTAR THICK, SMALLER PIECES OF MASTICATED SOLIDS. RECOMMENDATIONS: CONTINUE WITH PO INTAKE OF CCHO-LOW [facility] SOFT GROUND DIET WITH NECTAR THICK LIQUIDS FOR NOW WITH UPDATED AND POSTED ASPIRATION AND REFLUX PRECAUTIONS AND ONE TO ONE FEEDING/ASSIST PARTICULARLY FOR RATE AND AMOUNT. SKILLED DYSPHAGIA MANAGEMENT AND TX AND COG-COM EVAL/TX FOR DYSARTHRIA/DYSPHONIA AND COG-COM DEFICITS. EDUCATED/TRAINED RN IN POSTED PRECAUTIONS.
[2019-10-18] MEDS: Amikacin 900 MG in NS 110 ML IV SCH (12:16)
--- NOTE | 2019-10-18 13:16 | Pulmonology Progress Note ---
Assessment/Plan Problems: (1) Fever (2) UTI (urinary tract infection) (3) Renal failure (4) Uncontrolled diabetes mellitus Assessment/Plan on abx check cultures again abx by ID check electrolytes BS better controlled swallow study noted, Subjective ROS Limited/Unobtainable: No Constitutional: Reports: no symptoms HEENT: Repors: no symptoms Respiratory: Reports: no symptoms Allergies: Coded Allergies: No Known Allergies (Unverified , 10/12/19) Objective Last 24 Hour Vital Signs Date Time Temp Pulse Resp B/P (MAP) Pulse Ox O2 Delivery O2 Flow Rate FiO2 10/18/19 12:00 98.8 82 20 107/68 (81) 98 10/18/19 08:37 119/59 10/18/19 08:30 Room Air 10/18/19 08:00 99.2 82 20 119/59 (79) 94 10/18/19 04:00 98.3 74 18 134/81 (98) 93 10/18/19 00:00 98.1 82 16 101/58 (72) 92 82 10/17/19 21:00 Room Air 10/17/19 20:00 98.3 71 16 97/61 (73) 93 10/17/19 16:00 98.4 80 18 117/71 (86) 94 Intake and Output 10/17/19 10/18/19 19:00 07:00 Intake Total 513.6 ml Balance 513.6 ml Intake Oral 400 ml IV Total 113.6 ml # Voids 2 3 # Bowel Movements 1 General Appearance: WD/WN HEENT: normocephalic, atraumatic Respiratory/Chest: chest wall non-tender, lungs clear Abdomen: normal bowel sounds, soft, non tender Skin: no ulcers Neurologic/Psychiatric: no motor/sensory deficits Microbiology Date/Time Source Procedure Growth Status 10/17/19 10:00 Nasal Nares - Final Complete 10/17/19 10:00 Nasal Nares - Final Complete Laboratory Tests 10/18/19 04:45: White Blood Count 10.1, Red Blood Count 3.54L, Hemoglobin 10.6L, Hematocrit 31.9L, Mean Corpuscular Volume 90, Mean Corpuscular Hemoglobin 30.0, Mean Corpuscular Hemoglobin Concent 33.3, Red Cell Distribution Width 11.8, Platelet Count 192, Mean Platelet Volume 6.9, Neutrophils (%) (Auto) 68.3, Lymphocytes (% ) (Auto) 19.1L, Monocytes (%) (Auto) 11.3H, Eosinophils (%) (Auto) 0.1, Basophils (%) (Auto) 1.2, Sodium Level 139, Potassium Level 5.1, Chloride Level 106, Carbon Dioxide Level 27, Anion Gap 6, Blood Urea Nitrogen 19H, Creatinine 0.9, Estimat Glomerular Filtration Rate > 60, Glucose Level 199H, Calcium Level 7.8L, Random Amikacin Level < 2.0 Current Medications Medications (Trade) Dose Ordered Sig/Kelly Route PRN Reason Start Time Stop Time Status Last Admin Dose Admin Acetaminophen (Tylenol) 650 mg Q6H PRN ORAL Mild Pain/Temp > 100.5 10/14/19 06:00 11/13/19 05:59 10/16/19 23:39 Amikacin Protocol (Amikacin pharmacy to dose) 1 ea DAILY PRN MISC Per rx protocol 10/17/19 10:15 11/16/19 10:14 Amikacin Sulfate 900 mg/Sodium Chloride 113.6 ml @ 113.6 mls/ hr Q24H IV 10/17/19 12:00 10/24/19 11:59 10/18/19 12:16 Barium Sulfate (Varibar [place]) 250 ml NOW PRN Radiology Procedure 10/17/19 16:45 10/20/19 16:45 Barium Sulfate (Varibar [place]) 230 ml NOW PRN Radiology Procedure 10/17/19 16:45 10/20/19 16:45 Barium Sulfate (Varibar Pudding) 230 ml NOW PRN Radiology Procedure 10/17/19 16:45 10/20/19 16:45 Benazepril HCl (Lotensin) 10 mg DAILY ORAL 10/13/19 09:00 11/12/19 08:59 10/18/19 08:37 Clonazepam (KlonoPIN) 0.5 mg TWICE A DAY ORAL 10/13/19 09:00 10/20/19 08:59 10/18/19 08:36 Dextrose (Dextrose 50%) 25 ml Q30M PRN IV Hypoglycemia 10/13/19 04:00 11/12/19 03:59 Dextrose (Dextrose 50%) 50 ml Q30M PRN IV Hypoglycemia 10/13/19 04:00 11/12/19 03:59 Divalproex Sodium (Depakote) 1,750 mg BEDTIME ORAL 10/13/19 21:00 11/12/19 20:59 10/17/19 21:39 Heparin Sodium (Porcine) (Heparin 5000 units/ml) 5,000 units EVERY 12 HOURS SUBQ 10/13/19 09:00 11/12/19 08:59 10/18/19 08:39 Insulin Aspart (NovoLOG) BEFORE MEALS AND HS SUBQ 10/13/19 06:30 11/12/19 06:29 10/18/19 12:13 Levothyroxine Sodium (Synthroid) 75 mcg ACBREAKFAST ORAL 10/13/19 06:30 11/12/19 06:29 10/18/19 06:32 Metformin HCl (Glucophage) 1,000 mg BID ORAL 10/16/19 09:00 11/12/19 06:29 10/18/19 08:37 Nateglinide (Starlix) 120 mg TIAC ORAL 10/16/19 07:30 11/13/19 07:29 10/18/19 12:12 Pioglitazone HCl (Actos) 15 mg DAILY ORAL 10/13/19 09:00 11/12/19 08:59 10/18/19 08:36 Pravastatin Sodium (Pravachol) 20 mg BEDTIME ORAL 10/13/19 21:00 11/12/19 20:59 10/17/19 21:38 Sitagliptin Phosphate (Januvia) 100 mg ACBREAKFAST ORAL 10/14/19 13:45 11/13/19 13:44 10/18/19 06:32 Zolpidem Tartrate (Ambien) 5 mg BEDTIME PRN ORAL Insomnia 10/13/19 04:00 10/20/19 03:59 Thomas Velarde MD Oct 18, 2019 13:16
--- NOTE | 2019-10-18 13:37 | NUR ---
CASE MANAGEMENT:REVIEW 10/18/2019 SI:FEVER . SEPSIS . UTI . UNCONTROLLED DM. HYPERGLYCEMIA. 99.2 82 20 119/59 94% ON RA WBC 12.6 H/H 10.9/32.8 BUN 19 BG 199 CA+7.8 IS:IV AMIKACIN Q24HR HEPARIN SQ BID LOTENSIN PO QD KLONOPIN OP BID DEPAKOTE PO QHS ACTOS PO QD STARLIX PO TIAC METFORMIN PO BID NOVOLOG SQ AC&HS ACTOS PO QD JANUVIA PO AC SYNTHROID PO QAM \: 3E MED SURG UNIT DCP: HOME WHEN STABLE PLAN: VIDEO SWALLOW STUDY CONTROL FEVERS
--- NOTE | 2019-10-18 14:05 | NUR ---
NURSE NOTES: wound care treatment done. reposition. will cont to monitor.
--- NOTE | 2019-10-18 15:28 | NUR ---
*-* INSURANCE *-* ALL CLINICALS AND REVIEWS HAVE BEEN FAXED TO: JOSELINE NO PROFESSIONAL PROGRAMMER ANALYST ASSIGNED AT THIS TIME P- [phone] F- [phone]...REVIEW/CLINICAL
[2019-10-18 16:03] VITALS: BP 108/66
--- NOTE | 2019-10-18 18:45 | General Progress Note ---
Assessment/Plan Problem List: (1) Hypothyroid ICD Codes: E03.9 - Hypothyroidism, unspecified SNOMED: 91574341 (2) Hyperglycemia ICD Codes: R73.9 - Hyperglycemia, unspecified SNOMED: 62494770 (3) Uncontrolled diabetes mellitus ICD Codes: E11.65 - Type 2 diabetes mellitus with hyperglycemia SNOMED: 26919677, 819345567 Assessment/Plan: continue Starlix 120 mg ac tid continue Januvia 100 mg daily continue Actos 15 mg daily continue Metformin 1000 mg bid continue NISS ac / hs continue Levothyroxine 75 mcg daily Subjective Allergies: Coded Allergies: No Known Allergies (Unverified , 10/12/19) All Systems: reviewed and negative except above Subjective events noted Item Value Date Time Bedside Blood Glucose 255 mg/dl H 10/18/19 1712 Bedside Blood Glucose 194 mg/dl H 10/18/19 1213 Bedside Blood Glucose 178 mg/dl H 10/18/19 0634 Bedside Blood Glucose 220 mg/dl H 10/17/19 2147 Bedside Blood Glucose 111 mg/dl 10/17/19 1709 Bedside Blood Glucose 237 mg/dl H 10/17/19 1227 Objective Last 24 Hour Vital Signs Date Time Temp Pulse Resp B/P (MAP) Pulse Ox O2 Delivery O2 Flow Rate FiO2 10/18/19 16:03 98.7 100 20 108/66 (80) 95 10/18/19 12:00 98.8 82 20 107/68 (81) 98 10/18/19 08:37 119/59 10/18/19 08:30 Room Air 10/18/19 08:00 99.2 82 20 119/59 (79) 94 10/18/19 04:00 98.3 74 18 134/81 (98) 93 10/18/19 00:00 98.1 82 16 101/58 (72) 92 82 10/17/19 21:00 Room Air 10/17/19 20:00 98.3 71 16 97/61 (73) 93 Intake and Output 10/17/19 10/18/19 19:00 07:00 Intake Total 513.6 ml Balance 513.6 ml Intake Oral 400 ml IV Total 113.6 ml # Voids 2 3 # Bowel Movements 1 Laboratory Tests 10/18/19 04:45: White Blood Count 10.1, Red Blood Count 3.54L, Hemoglobin 10.6L, Hematocrit 31.9L, Mean Corpuscular Volume 90, Mean Corpuscular Hemoglobin 30.0, Mean Corpuscular Hemoglobin Concent 33.3, Red Cell Distribution Width 11.8, Platelet Count 192, Mean Platelet Volume 6.9, Neutrophils (%) (Auto) 68.3, Lymphocytes (% ) (Auto) 19.1L, Monocytes (%) (Auto) 11.3H, Eosinophils (%) (Auto) 0.1, Basophils (%) (Auto) 1.2, Sodium Level 139, Potassium Level 5.1, Chloride Level 106, Carbon Dioxide Level 27, Anion Gap 6, Blood Urea Nitrogen 19H, Creatinine 0.9, Estimat Glomerular Filtration Rate > 60, Glucose Level 199H, Calcium Level 7.8L, Random Amikacin Level < 2.0 Height (Feet): 5 Height (Inches): 5.00 Weight (Pounds): 169 General Appearance: no apparent distress Neck: normal alignment Cardiovascular: normal rate Respiratory/Chest: lungs clear Abdomen: normal bowel sounds Objective Current Medications Medications (Trade) Dose Ordered Sig/Kelly Route PRN Reason Start Time Stop Time Status Last Admin Dose Admin Acetaminophen (Tylenol) 650 mg Q6H PRN ORAL Mild Pain/Temp > 100.5 10/14/19 06:00 11/13/19 05:59 10/16/19 23:39 Amikacin Protocol (Amikacin pharmacy to dose) 1 ea DAILY PRN MISC Per rx protocol 10/17/19 10:15 11/16/19 10:14 Amikacin Sulfate 900 mg/Sodium Chloride 113.6 ml @ 113.6 mls/ hr Q24H IV 10/17/19 12:00 10/24/19 11:59 10/18/19 12:16 Barium Sulfate (Varibar [place]) 250 ml NOW PRN Radiology Procedure 10/17/19 16:45 10/20/19 16:45 Barium Sulfate (Varibar [place]) 230 ml NOW PRN Radiology Procedure 10/17/19 16:45 10/20/19 16:45 Barium Sulfate (Varibar [place]ud[place]) 230 ml NOW PRN Radiology Procedure 10/17/19 16:45 10/20/19 16:45 Benazepril HCl (Lotensin) 10 mg DAILY ORAL 10/13/19 09:00 11/12/19 08:59 10/18/19 08:37 Clonazepam (KlonoPIN) 0.5 mg TWICE A DAY ORAL 10/13/19 09:00 10/20/19 08:59 10/18/19 17:11 Dextrose (Dextrose 50%) 25 ml Q30M PRN IV Hypoglycemia 10/13/19 04:00 11/12/19 03:59 Dextrose (Dextrose 50%) 50 ml Q30M PRN IV Hypoglycemia 10/13/19 04:00 11/12/19 03:59 Divalproex Sodium (Depakote) 250 mg BEDTIME ORAL 10/18/19 21:00 11/17/19 20:59 Divalproex Sodium (Depakote) 1,500 mg BEDTIME ORAL 10/18/19 21:00 11/17/19 20:59 Heparin Sodium (Porcine) (Heparin 5000 units/ml) 5,000 units EVERY 12 HOURS SUBQ 10/13/19 09:00 11/12/19 08:59 10/18/19 08:39 Insulin Aspart (NovoLOG) BEFORE MEALS AND HS SUBQ 10/13/19 06:30 11/12/19 06:29 10/18/19 17:12 Levothyroxine Sodium (Synthroid) 75 mcg ACBREAKFAST ORAL 10/13/19 06:30 11/12/19 06:29 10/18/19 06:32 Metformin HCl (Glucophage) 1,000 mg BID ORAL 10/16/19 09:00 11/12/19 06:29 10/18/19 17:11 Nateglinide (Starlix) 120 mg TIAC ORAL 10/18/19 16:30 11/13/19 16:29 10/18/19 17:11 Pioglitazone HCl (Actos) 15 mg DAILY ORAL 10/13/19 09:00 11/12/19 08:59 10/18/19 08:36 Pravastatin Sodium (Pravachol) 20 mg BEDTIME ORAL 10/13/19 21:00 11/12/19 20:59 10/17/19 21:38 Sitagliptin Phosphate (Januvia) 100 mg ACBREAKFAST ORAL 10/14/19 13:45 11/13/19 13:44 10/18/19 06:32 Zolpidem Tartrate (Ambien) 5 mg BEDTIME PRN ORAL Insomnia 10/13/19 04:00 10/20/19 03:59 Prosper Boateng MD Oct 18, 2019 18:45
--- NOTE | 2019-10-18 19:00 | NUR ---
NURSE NOTES: Receive a report from DIVYA Cooper. Pt is in bed. lying. No acute distress noted. Denies any pain. Awake but disoriented with smiley face. Bed bound. Kept wound dressing on sacrum area. Side rails x3 up. Call light within reach. Will continue to monitor.
--- NOTE | 2019-10-18 19:02 | NUR ---
HAND-OFF: Report given to [facility].
--- NOTE | 2019-10-18 19:10 | Internal Med Progress Note ---
Subjective Date of Service: Oct 18, 2019 Physician Name JosephineReynold Attending Physician Ankush Hoffman MD Current Medications Medications (Trade) Dose Ordered Sig/Kelly Route PRN Reason Start Time Stop Time Status Last Admin Dose Admin Acetaminophen (Tylenol) 650 mg Q6H PRN ORAL Mild Pain/Temp > 100.5 10/14/19 06:00 11/13/19 05:59 10/16/19 23:39 Amikacin Protocol (Amikacin pharmacy to dose) 1 ea DAILY PRN MISC Per rx protocol 10/17/19 10:15 11/16/19 10:14 Amikacin Sulfate 900 mg/Sodium Chloride 113.6 ml @ 113.6 mls/ hr Q24H IV 10/17/19 12:00 10/24/19 11:59 10/18/19 12:16 Barium Sulfate (Varibar [place]) 250 ml NOW PRN Radiology Procedure 10/17/19 16:45 10/20/19 16:45 Barium Sulfate (Varibar [place]) 230 ml NOW PRN Radiology Procedure 10/17/19 16:45 10/20/19 16:45 Barium Sulfate (Varibar Pudding) 230 ml NOW PRN Radiology Procedure 10/17/19 16:45 10/20/19 16:45 Benazepril HCl (Lotensin) 10 mg DAILY ORAL 10/13/19 09:00 11/12/19 08:59 10/18/19 08:37 Clonazepam (KlonoPIN) 0.5 mg TWICE A DAY ORAL 10/13/19 09:00 10/20/19 08:59 10/18/19 17:11 Dextrose (Dextrose 50%) 25 ml Q30M PRN IV Hypoglycemia 10/13/19 04:00 11/12/19 03:59 Dextrose (Dextrose 50%) 50 ml Q30M PRN IV Hypoglycemia 10/13/19 04:00 11/12/19 03:59 Divalproex Sodium (Depakote) 250 mg BEDTIME ORAL 10/18/19 21:00 11/17/19 20:59 Divalproex Sodium (Depakote) 1,500 mg BEDTIME ORAL 10/18/19 21:00 11/17/19 20:59 Heparin Sodium (Porcine) (Heparin 5000 units/ml) 5,000 units EVERY 12 HOURS SUBQ 10/13/19 09:00 11/12/19 08:59 10/18/19 08:39 Insulin Aspart (NovoLOG) BEFORE MEALS AND HS SUBQ 10/13/19 06:30 11/12/19 06:29 10/18/19 17:12 Levothyroxine Sodium (Synthroid) 75 mcg ACBREAKFAST ORAL 10/13/19 06:30 11/12/19 06:29 10/18/19 06:32 Metformin HCl (Glucophage) 1,000 mg BID ORAL 10/16/19 09:00 11/12/19 06:29 10/18/19 17:11 Nateglinide (Starlix) 120 mg TIAC ORAL 10/18/19 16:30 11/13/19 16:29 10/18/19 17:11 Pioglitazone HCl (Actos) 15 mg DAILY ORAL 10/13/19 09:00 11/12/19 08:59 10/18/19 08:36 Pravastatin Sodium (Pravachol) 20 mg BEDTIME ORAL 10/13/19 21:00 11/12/19 20:59 10/17/19 21:38 Sitagliptin Phosphate (Januvia) 100 mg ACBREAKFAST ORAL 10/14/19 13:45 11/13/19 13:44 10/18/19 06:32 Zolpidem Tartrate (Ambien) 5 mg BEDTIME PRN ORAL Insomnia 10/13/19 04:00 10/20/19 03:59 Allergies: Coded Allergies: No Known Allergies (Unverified , 10/12/19) ROS Limited/Unobtainable: Yes Subjective 54 YO M admitted with uncontrolled diabetes, now UTI. Cover for Int Ramesh-Dr Hoffman Objective Last Vital Signs Date Time Temp Pulse Resp B/P (MAP) Pulse Ox O2 Delivery O2 Flow Rate FiO2 10/18/19 16:03 98.7 100 20 108/66 (80) 95 10/18/19 08:30 Room Air Laboratory Tests Test 10/18/19 04:45 White Blood Count 10.1 K/UL (4.8-10.8) Red Blood Count 3.54 M/UL (4.70-6.10) L Hemoglobin 10.6 G/DL (14.2-18.0) L Hematocrit 31.9 % (42.0-52.0) L Mean Corpuscular Volume 90 FL (80-99) Mean Corpuscular Hemoglobin 30.0 PG (27.0-31.0) Mean Corpuscular Hemoglobin Concent 33.3 G/DL (32.0-36.0) Red Cell Distribution Width 11.8 % (11.6-14.8) Platelet Count 192 K/UL (150-450) Mean Platelet Volume 6.9 FL (6.5-10.1) Neutrophils (%) (Auto) 68.3 % (45.0-75.0) Lymphocytes (%) (Auto) 19.1 % (20.0-45.0) L Monocytes (%) (Auto) 11.3 % (1.0-10.0) H Eosinophils (%) (Auto) 0.1 % (0.0-3.0) Basophils (%) (Auto) 1.2 % (0.0-2.0) Sodium Level 139 MMOL/L (136-145) Potassium Level 5.1 MMOL/L (3.5-5.1) Chloride Level 106 MMOL/L (98-107) Carbon Dioxide Level 27 MMOL/L (21-32) Anion Gap 6 mmol/L (5-15) Blood Urea Nitrogen 19 mg/dL (7-18) H Creatinine 0.9 MG/DL (0.55-1.30) Estimat Glomerular Filtration Rate > 60 mL/min (>60) Glucose Level 199 MG/DL (74-106) H Calcium Level 7.8 MG/DL (8.5-10.1) L Random Amikacin Level < 2.0 MG/L Microbiology Date/Time Source Procedure Growth Status 10/17/19 10:00 Nasal Nares - Final Complete 10/17/19 10:00 Nasal Nares - Final Complete Intake and Output 10/17/19 10/18/19 19:00 07:00 Intake Total 513.6 ml Balance 513.6 ml Intake Oral 400 ml IV Total 113.6 ml # Voids 2 3 # Bowel Movements 1 Objective PHYSICAL EXAMINATION: GENERAL: The patient is awake and responsive, in no acute distress. HEAD AND NECK: Pupils are equal and reactive to light. Extraocular muscles intact. Neck was supple. No JVD. LUNGS: Good air entry with no wheezing or rales. HEART: S1, S2. Distant heart sounds. No gallops. ABDOMEN: Soft, nondistended, and nontender. Mildly obese. EXTREMITIES: No cyanosis, clubbing, or edema NEUROLOGIC: Cranial nerves II through XII grossly grossly intact. Motor is 5/5 in all extremities. Gait was not assessed due to the patient's status. RECTAL: Refused and deferred. GENITOURINARY: Refused and deferred. PSYCHIATRIC: Mood and affect is calm. Assessment/Plan Assessment/Plan ASSESSMENT: 1. Uncontrolled diabetes type 2, possible due to underlying infection such as urinary tract infection. 2. urinary tract infection=ESBL E. Coli 3. Dehydration. 4. Acute kidney injury on chronic renal insufficiency. 5. Proteinuria. 6. Developmental delay. 7. Hypothyroidism. 8. Seizure disorder. 9. Morbid obesity. PLAN: 1. Admit the patient to the medical floor. 2. Start the patient on IV hydration. 3. Accu-Chek with sliding scale. 4. Monitor laboratory. 5. antibiotic=Amikacin per ID 6. DVT prophylaxis with heparin subcutaneous. 7. ID=Dr. Gutierrez. 8. Endocrinology = Reynold Almeida MD Oct 18, 2019 19:10
[2019-10-18 20:00] VITALS: BP 113/67
[2019-10-18] MEDS: Depakote 500mg tab ORAL SCH (21:39)
[2019-10-19] VITALS: BP 125/67
--- NOTE | 2019-10-19 01:20 | NUR ---
NURSE NOTES: Noted elevated temp as 100.6. No chilling or febrile sensation. After giving Tylenol 650mg po, temperature checked as 98.8. Will continue to monitor.
[2019-10-19 04:00] VITALS: BP 92/59
--- NOTE | 2019-10-19 06:00 | NUR ---
NURSE NOTES: Denies pain. No chilling or febrile sensation. Will continue to monitor.
[2019-10-19] MEDS: NovoLOG Insulin Flexpen SUBQ SCH ×4 (06:32→22:29)
[2019-10-19 07:08] LABS: ANION GAP 7 mmol/L (5-15); BLOOD UREA NITROGEN 15 mg/dL (7-18); CALCIUM 8.5 MG/DL (8.5-10.1); CARBON DIOXIDE 26 MMOL/L (21-32); CHLORIDE 104 MMOL/L (98-107); CREATININE 0.9 MG/DL (0.55-1.30); POTASSIUM 5.4 MMOL/L (3.5-5.1); SODIUM 137 MMOL/L (136-145)
--- NOTE | 2019-10-19 07:10 | NUR ---
HAND-OFF: Report given to YUN Ruiz. Transfer to 3G, 954-3. Round is done.
--- NOTE | 2019-10-19 07:34 | General Progress Note ---
Assessment/Plan Problem List: (1) Hypothyroid ICD Codes: E03.9 - Hypothyroidism, unspecified SNOMED: 46288741 (2) Hyperglycemia ICD Codes: R73.9 - Hyperglycemia, unspecified SNOMED: 44777920 (3) Uncontrolled diabetes mellitus ICD Codes: E11.65 - Type 2 diabetes mellitus with hyperglycemia SNOMED: 54680253, 944590559 Assessment/Plan: continue Starlix 120 mg ac tid continue Januvia 100 mg daily continue Actos 15 mg daily continue Metformin 1000 mg bid continue NISS ac / hs continue Levothyroxine 75 mcg daily Subjective Allergies: Coded Allergies: No Known Allergies (Unverified , 10/12/19) Subjective events noted Item Value Date Time Bedside Blood Glucose 158 mg/dl H 10/19/19 0632 Bedside Blood Glucose 189 mg/dl H 10/18/19 2145 Bedside Blood Glucose 255 mg/dl H 10/18/19 1712 Bedside Blood Glucose 194 mg/dl H 10/18/19 1213 Bedside Blood Glucose 178 mg/dl H 10/18/19 0634 Objective Last 24 Hour Vital Signs Date Time Temp Pulse Resp B/P (MAP) Pulse Ox O2 Delivery O2 Flow Rate FiO2 10/19/19 04:00 98.8 66 14 92/59 (70) 95 10/19/19 01:20 98.8 10/19/19 00:00 100.6 87 14 125/67 (86) 95 10/18/19 21:00 Room Air 10/18/19 20:00 98.7 89 15 113/67 (82) 93 10/18/19 16:03 98.7 100 20 108/66 (80) 95 10/18/19 12:00 98.8 82 20 107/68 (81) 98 10/18/19 08:37 119/59 10/18/19 08:30 Room Air 10/18/19 08:00 99.2 82 20 119/59 (79) 94 Intake and Output 10/18/19 10/19/19 19:00 07:00 Intake Total 833.6 ml 120 ml Balance 833.6 ml 120 ml Intake Oral 720 ml 120 ml IV Total 113.6 ml # Voids 3 5 Laboratory Tests 10/18/19 19:55: Random Amikacin Level 4.4 10/19/19 05:35: White Blood Count [Pending], Red Blood Count [Pending], Hemoglobin [Pending], Hematocrit [Pending], Mean Corpuscular Volume [Pending], Mean Corpuscular Hemoglobin [Pending], Mean Corpuscular Hemoglobin Concent [Pending], Red Cell Distribution Width [Pending], Platelet Count [Pending], Mean Platelet Volume [ Pending], Neutrophils (%) (Auto) [Pending], Lymphocytes (%) (Auto) [Pending], Monocytes (%) (Auto) [Pending], Eosinophils (%) (Auto) [Pending], Basophils (%) (Auto) [Pending], Sodium Level 137, Potassium Level 5.4H, Chloride Level 104, Carbon Dioxide Level 26, Anion Gap 7, Blood Urea Nitrogen 15, Creatinine 0.9, Estimat Glomerular Filtration Rate > 60, Glucose Level 204H, Calcium Level 8.5 Height (Feet): 5 Height (Inches): 5.00 Weight (Pounds): 169 General Appearance: no apparent distress Neck: normal alignment Cardiovascular: normal rate Respiratory/Chest: lungs clear Abdomen: normal bowel sounds Objective Current Medications Medications (Trade) Dose Ordered Sig/Kelly Route PRN Reason Start Time Stop Time Status Last Admin Dose Admin Acetaminophen (Tylenol) 650 mg Q6H PRN ORAL Mild Pain/Temp > 100.5 10/14/19 06:00 11/13/19 05:59 10/19/19 00:35 Amikacin Protocol (Amikacin pharmacy to dose) 1 ea DAILY PRN MISC Per rx protocol 10/17/19 10:15 11/16/19 10:14 Amikacin Sulfate 900 mg/Sodium Chloride 113.6 ml @ 113.6 mls/ hr Q24H IV 10/17/19 12:00 10/24/19 11:59 10/18/19 12:16 Barium Sulfate (Varibar Honey) 250 ml NOW PRN Radiology Procedure 10/17/19 16:45 10/20/19 16:45 Barium Sulfate (Varibar [place]) 230 ml NOW PRN Radiology Procedure 10/17/19 16:45 10/20/19 16:45 Barium Sulfate (Varibar Pudding) 230 ml NOW PRN Radiology Procedure 10/17/19 16:45 10/20/19 16:45 Benazepril HCl (Lotensin) 10 mg DAILY ORAL 10/13/19 09:00 11/12/19 08:59 10/18/19 08:37 Clonazepam (KlonoPIN) 0.5 mg TWICE A DAY ORAL 10/13/19 09:00 10/20/19 08:59 10/18/19 17:11 Dextrose (Dextrose 50%) 25 ml Q30M PRN IV Hypoglycemia 10/13/19 04:00 11/12/19 03:59 Dextrose (Dextrose 50%) 50 ml Q30M PRN IV Hypoglycemia 10/13/19 04:00 11/12/19 03:59 Divalproex Sodium (Depakote) 250 mg BEDTIME ORAL 10/18/19 21:00 11/17/19 20:59 10/18/19 21:39 Divalproex Sodium (Depakote) 1,500 mg BEDTIME ORAL 10/18/19 21:00 11/17/19 20:59 10/18/19 21:39 Heparin Sodium (Porcine) (Heparin 5000 units/ml) 5,000 units EVERY 12 HOURS SUBQ 10/13/19 09:00 11/12/19 08:59 10/18/19 21:41 Insulin Aspart (NovoLOG) BEFORE MEALS AND HS SUBQ 10/13/19 06:30 11/12/19 06:29 10/19/19 06:32 Levothyroxine Sodium (Synthroid) 75 mcg ACBREAKFAST ORAL 10/13/19 06:30 11/12/19 06:29 10/19/19 06:26 Metformin HCl (Glucophage) 1,000 mg BID ORAL 10/16/19 09:00 11/12/19 06:29 10/18/19 17:11 Nateglinide (Starlix) 120 mg TIAC ORAL 10/18/19 16:30 11/13/19 16:29 10/19/19 06:26 Pioglitazone HCl (Actos) 15 mg DAILY ORAL 10/13/19 09:00 11/12/19 08:59 10/18/19 08:36 Pravastatin Sodium (Pravachol) 20 mg BEDTIME ORAL 10/13/19 21:00 11/12/19 20:59 10/18/19 21:39 Sitagliptin Phosphate (Januvia) 100 mg ACBREAKFAST ORAL 10/14/19 13:45 11/13/19 13:44 10/19/19 06:26 Zolpidem Tartrate (Ambien) 5 mg BEDTIME PRN ORAL Insomnia 10/13/19 04:00 10/20/19 03:59 Prosper Boateng MD Oct 19, 2019 07:34
--- NOTE | 2019-10-19 07:35 | NUR ---
NURSE NOTES: Received report and patient on bed, awake. IV site intact and patent. Bed in low and locked position, call light in reach. No signs of respiratory distress or pain. Room board updated, will continue to monitor.
[2019-10-19 07:38] LABS: BASOPHILS % (AUTO) 0.5 % (0.0-2.0); EOSINOPHILS % (AUTO) 0.1 % (0.0-3.0); HEMATOCRIT 35.7 % (42.0-52.0); HEMOGLOBIN 12.1 G/DL (14.2-18.0); LYMPHOCYTES % (AUTO) 19.5 % (20.0-45.0); MEAN CORPUSCULAR VOLUME 90 FL (80-99); MONOCYTES % (AUTO) 9.5 % (1.0-10.0); NEUTROPHILS % (AUTO) 70.3 % (45.0-75.0); PLATELET COUNT 176 K/UL (150-450); RED BLOOD COUNT 3.97 M/UL (4.70-6.10); RED CELL DISTRIBUTION WIDTH 12.3 % (11.6-14.8); WHITE BLOOD COUNT 12.7 K/UL (4.8-10.8)
[2019-10-19 08:00] VITALS: BP 100/57
[2019-10-19] MEDS: Benazepril 10mg tab ORAL SCH (09:00)
[2019-10-19] MEDS: metFORMIN 500mg tab ORAL SCH ×2 (09:18→17:16)
[2019-10-19] MEDS: clonazePAM 0.5mg tab ORAL SCH ×2 (09:19→17:16)
[2019-10-19] MEDS: Heparin 5000 units/ml inj SUBQ SCH ×2 (09:20→22:03)
--- NOTE | 2019-10-19 10:26 | Infectious Diseases Prog Note ---
Assessment/Plan Assessment/Plan Assessment: SEpsis Fever, recurrent; improving Leukocytosis, recurrent UTI -u/a wbc 2-4, nit +, leuk +1; ucx >100k ESBL E.coli (S Zosyn, Ertapenem, Amikacin) -CXR: No acute process -10/13 Bcx NTD -influenza sc neg Hyperglycemia; improving OCTAVIA, SP seizure disorder developmental delay Plan: Continue IV AMikacin #3/5-7 for ESBL E.coli UTI in view of fever and leukocytosis (there is interaction between carbapenem and valproic acid) -10/17 SP Zosyn #4 -10/14 SP Ceftriaxone #2 -f/u cx -Monitor CBC/CMP, temperatures -aspiration precautions -If T >101, repeat 2 sets of Bcx Thank you for this consultation. Will continue to follow along with you. Subjective Allergies: Coded Allergies: No Known Allergies (Unverified , 10/12/19) Subjective Tm 100.6 mild leukocytosis Bcx Neg Objective Vital Signs Last 24 Hour Vital Signs Date Time Temp Pulse Resp B/P (MAP) Pulse Ox O2 Delivery O2 Flow Rate FiO2 10/19/19 04:00 98.8 66 14 92/59 (70) 95 10/19/19 01:20 98.8 10/19/19 00:00 100.6 87 14 125/67 (86) 95 10/18/19 21:00 Room Air 10/18/19 20:00 98.7 89 15 113/67 (82) 93 10/18/19 16:03 98.7 100 20 108/66 (80) 95 10/18/19 12:00 98.8 82 20 107/68 (81) 98 Height (Feet): 5 Height (Inches): 5.00 Weight (Pounds): 169 Objective GENERAL: The patient is awake and responsive, in no acute distress. HEAD AND NECK: Pupils are equal and reactive to light. Extraocular muscles intact. Neck was supple. No JVD. LUNGS: Good air entry with no wheezing or rales. HEART: S1, S2. Distant heart sounds. No gallops. ABDOMEN: Soft, nondistended, and nontender. Mildly obese. EXTREMITIES: No cyanosis, clubbing, or edema Microbiology Date/Time Source Procedure Growth Status 10/17/19 10:00 Nasal Nares - Final Complete 10/17/19 10:00 Nasal Nares - Final Complete Laboratory Tests Test 10/18/19 19:55 10/19/19 05:35 Random Amikacin Level 4.4 MG/L White Blood Count 12.7 K/UL (4.8-10.8) H Red Blood Count 3.97 M/UL (4.70-6.10) L Hemoglobin 12.1 G/DL (14.2-18.0) L Hematocrit 35.7 % (42.0-52.0) L Mean Corpuscular Volume 90 FL (80-99) Mean Corpuscular Hemoglobin 30.5 PG (27.0-31.0) Mean Corpuscular Hemoglobin Concent 34.0 G/DL (32.0-36.0) Red Cell Distribution Width 12.3 % (11.6-14.8) Platelet Count 176 K/UL (150-450) Mean Platelet Volume 6.2 FL (6.5-10.1) L Neutrophils (%) (Auto) 70.3 % (45.0-75.0) Lymphocytes (%) (Auto) 19.5 % (20.0-45.0) L Monocytes (%) (Auto) 9.5 % (1.0-10.0) Eosinophils (%) (Auto) 0.1 % (0.0-3.0) Basophils (%) (Auto) 0.5 % (0.0-2.0) Sodium Level 137 MMOL/L (136-145) Potassium Level 5.4 MMOL/L (3.5-5.1) H Chloride Level 104 MMOL/L (98-107) Carbon Dioxide Level 26 MMOL/L (21-32) Anion Gap 7 mmol/L (5-15) Blood Urea Nitrogen 15 mg/dL (7-18) Creatinine 0.9 MG/DL (0.55-1.30) Estimat Glomerular Filtration Rate > 60 mL/min (>60) Glucose Level 204 MG/DL (74-106) H Calcium Level 8.5 MG/DL (8.5-10.1) Current Medications Medications (Trade) Dose Ordered Sig/Kelly Route PRN Reason Start Time Stop Time Status Last Admin Dose Admin Acetaminophen (Tylenol) 650 mg Q6H PRN ORAL Mild Pain/Temp > 100.5 10/14/19 06:00 11/13/19 05:59 10/19/19 00:35 Amikacin Protocol (Amikacin pharmacy to dose) 1 ea DAILY PRN MISC Per rx protocol 10/17/19 10:15 11/16/19 10:14 Amikacin Sulfate 900 mg/Sodium Chloride 113.6 ml @ 113.6 mls/ hr Q24H IV 10/17/19 12:00 10/24/19 11:59 10/18/19 12:16 Barium Sulfate (Varibar Honey) 250 ml NOW PRN Radiology Procedure 10/17/19 16:45 10/20/19 16:45 Barium Sulfate (Varibar [place]) 230 ml NOW PRN Radiology Procedure 10/17/19 16:45 10/20/19 16:45 Barium Sulfate (Varibar Pudding) 230 ml NOW PRN Radiology Procedure 10/17/19 16:45 10/20/19 16:45 Benazepril HCl (Lotensin) 10 mg DAILY ORAL 10/13/19 09:00 11/12/19 08:59 10/18/19 08:37 Clonazepam (KlonoPIN) 0.5 mg TWICE A DAY ORAL 10/13/19 09:00 10/20/19 08:59 10/19/19 09:19 Dextrose (Dextrose 50%) 25 ml Q30M PRN IV Hypoglycemia 10/13/19 04:00 11/12/19 03:59 Dextrose (Dextrose 50%) 50 ml Q30M PRN IV Hypoglycemia 10/13/19 04:00 11/12/19 03:59 Divalproex Sodium (Depakote) 250 mg BEDTIME ORAL 10/18/19 21:00 11/17/19 20:59 10/18/19 21:39 Divalproex Sodium (Depakote) 1,500 mg BEDTIME ORAL 10/18/19 21:00 11/17/19 20:59 10/18/19 21:39 Heparin Sodium (Porcine) (Heparin 5000 units/ml) 5,000 units EVERY 12 HOURS SUBQ 10/13/19 09:00 11/12/19 08:59 10/19/19 09:20 Insulin Aspart (NovoLOG) BEFORE MEALS AND HS SUBQ 10/13/19 06:30 11/12/19 06:29 10/19/19 06:32 Levothyroxine Sodium (Synthroid) 75 mcg ACBREAKFAST ORAL 10/13/19 06:30 11/12/19 06:29 10/19/19 06:26 Metformin HCl (Glucophage) 1,000 mg BID ORAL 10/16/19 09:00 11/12/19 06:29 10/19/19 09:18 Nateglinide (Starlix) 120 mg TIAC ORAL 10/18/19 16:30 11/13/19 16:29 10/19/19 06:26 Pioglitazone HCl (Actos) 15 mg DAILY ORAL 10/13/19 09:00 11/12/19 08:59 10/19/19 09:19 Pravastatin Sodium (Pravachol) 20 mg BEDTIME ORAL 10/13/19 21:00 11/12/19 20:59 10/18/19 21:39 Sitagliptin Phosphate (Januvia) 100 mg ACBREAKFAST ORAL 10/14/19 13:45 11/13/19 13:44 10/19/19 06:26 Zolpidem Tartrate (Ambien) 5 mg BEDTIME PRN ORAL Insomnia 10/13/19 04:00 10/20/19 03:59 Roxana Gutierrez M.D. Oct 19, 2019 10:26
[2019-10-19 12:00] VITALS: BP 106/62
--- NOTE | 2019-10-19 13:20 | Pulmonology Progress Note ---
Assessment/Plan Problems: (1) Fever (2) UTI (urinary tract infection) (3) Renal failure (4) Uncontrolled diabetes mellitus Assessment/Plan on abx check cultures again abx by ID check electrolytes BS better controlled Subjective ROS Limited/Unobtainable: No Constitutional: Reports: no symptoms HEENT: Repors: no symptoms Allergies: Coded Allergies: No Known Allergies (Unverified , 10/12/19) Objective Last 24 Hour Vital Signs Date Time Temp Pulse Resp B/P (MAP) Pulse Ox O2 Delivery O2 Flow Rate FiO2 10/19/19 12:00 97.9 76 18 106/62 (77) 96 10/19/19 09:00 Room Air 10/19/19 09:00 100/57 10/19/19 08:00 98.9 75 19 100/57 (71) 95 10/19/19 04:00 98.8 66 14 92/59 (70) 95 10/19/19 01:20 98.8 10/19/19 00:00 100.6 87 14 125/67 (86) 95 10/18/19 21:00 Room Air 10/18/19 20:00 98.7 89 15 113/67 (82) 93 10/18/19 16:03 98.7 100 20 108/66 (80) 95 Intake and Output 10/18/19 10/19/19 19:00 07:00 Intake Total 833.6 ml 120 ml Balance 833.6 ml 120 ml Intake Oral 720 ml 120 ml IV Total 113.6 ml # Voids 3 5 General Appearance: WD/WN HEENT: normocephalic, atraumatic Respiratory/Chest: chest wall non-tender, lungs clear Cardiovascular: normal peripheral pulses, regular rhythm Abdomen: soft, non tender, non distended Genitourinary: normal external genitalia Skin: no rash Microbiology Date/Time Source Procedure Growth Status 10/17/19 10:00 Nasal Nares - Final Complete 10/17/19 10:00 Nasal Nares - Final Complete Laboratory Tests 10/18/19 19:55: Random Amikacin Level 4.4 10/19/19 05:35: White Blood Count 12.7H, Red Blood Count 3.97L, Hemoglobin 12.1L, Hematocrit 35.7L, Mean Corpuscular Volume 90, Mean Corpuscular Hemoglobin 30.5, Mean Corpuscular Hemoglobin Concent 34.0, Red Cell Distribution Width 12.3, Platelet Count 176, Mean Platelet Volume 6.2L, Neutrophils (%) (Auto) 70.3, Lymphocytes ( %) (Auto) 19.5L, Monocytes (%) (Auto) 9.5, Eosinophils (%) (Auto) 0.1, Basophils (%) (Auto) 0.5, Sodium Level 137, Potassium Level 5.4H, Chloride Level 104, Carbon Dioxide Level 26, Anion Gap 7, Blood Urea Nitrogen 15, Creatinine 0.9, Estimat Glomerular Filtration Rate > 60, Glucose Level 204H, Calcium Level 8.5 Current Medications Medications (Trade) Dose Ordered Sig/Kelly Route PRN Reason Start Time Stop Time Status Last Admin Dose Admin Acetaminophen (Tylenol) 650 mg Q6H PRN ORAL Mild Pain/Temp > 100.5 10/14/19 06:00 11/13/19 05:59 10/19/19 00:35 Amikacin Protocol (Amikacin pharmacy to dose) 1 ea DAILY PRN MISC Per rx protocol 10/17/19 10:15 11/16/19 10:14 Amikacin Sulfate 900 mg/Sodium Chloride 113.6 ml @ 113.6 mls/ hr Q12H IV 10/20/19 00:00 10/27/19 00:00 Amikacin Sulfate 900 mg/Sodium Chloride 113.6 ml @ 113.6 mls/ hr Q24H IV 10/17/19 12:00 10/19/19 15:00 10/18/19 12:16 Barium Sulfate (Varibar [place]) 250 ml NOW PRN Radiology Procedure 10/17/19 16:45 10/20/19 16:45 Barium Sulfate (Varibar [place]) 230 ml NOW PRN Radiology Procedure 10/17/19 16:45 10/20/19 16:45 Barium Sulfate (Varibar [place]ud[place]) 230 ml NOW PRN Radiology Procedure 10/17/19 16:45 10/20/19 16:45 Benazepril HCl (Lotensin) 10 mg DAILY ORAL 10/13/19 09:00 11/12/19 08:59 10/18/19 08:37 Clonazepam (KlonoPIN) 0.5 mg TWICE A DAY ORAL 10/13/19 09:00 10/20/19 08:59 10/19/19 09:19 Dextrose (Dextrose 50%) 25 ml Q30M PRN IV Hypoglycemia 10/13/19 04:00 11/12/19 03:59 Dextrose (Dextrose 50%) 50 ml Q30M PRN IV Hypoglycemia 10/13/19 04:00 11/12/19 03:59 Divalproex Sodium (Depakote) 250 mg BEDTIME ORAL 10/18/19 21:00 11/17/19 20:59 10/18/19 21:39 Divalproex Sodium (Depakote) 1,500 mg BEDTIME ORAL 10/18/19 21:00 11/17/19 20:59 10/18/19 21:39 Heparin Sodium (Porcine) (Heparin 5000 units/ml) 5,000 units EVERY 12 HOURS SUBQ 10/13/19 09:00 11/12/19 08:59 10/19/19 09:20 Insulin Aspart (NovoLOG) BEFORE MEALS AND HS SUBQ 10/13/19 06:30 11/12/19 06:29 10/19/19 06:32 Levothyroxine Sodium (Synthroid) 75 mcg ACBREAKFAST ORAL 10/13/19 06:30 11/12/19 06:29 10/19/19 06:26 Metformin HCl (Glucophage) 1,000 mg BID ORAL 10/16/19 09:00 11/12/19 06:29 10/19/19 09:18 Nateglinide (Starlix) 120 mg TIAC ORAL 10/18/19 16:30 11/13/19 16:29 10/19/19 12:20 Pioglitazone HCl (Actos) 15 mg DAILY ORAL 10/13/19 09:00 11/12/19 08:59 10/19/19 09:19 Pravastatin Sodium (Pravachol) 20 mg BEDTIME ORAL 10/13/19 21:00 11/12/19 20:59 10/18/19 21:39 Sitagliptin Phosphate (Januvia) 100 mg ACBREAKFAST ORAL 10/14/19 13:45 11/13/19 13:44 10/19/19 06:26 Zolpidem Tartrate (Ambien) 5 mg BEDTIME PRN ORAL Insomnia 10/13/19 04:00 10/20/19 03:59 Thomas Velarde MD Oct 19, 2019 13:20
--- NOTE | 2019-10-19 13:21 | NUR ---
ST NOTES: SWALLOW STATUS: PATIENT SEEN FOR DYSPHAGIA. GOALS FOR INTAKE MET ON [facility] SOFT GROUND AND NECTAR THICK LIQUIDS. PO TRIALS GIVEN AT LUNCH WITH PIGMENT PRESSER. PATIENT TOLERATED TSP LEVEL OF [facility] SOFT GROUND MEAT AND VEGETABLES AND SIPS VIA CUP OF NECTAR THICK WATER W/O OVERT ASPIRATION. PATIENT TENDS TO TAKE LARGE SIPS OF WATER ONE SIP AT A TIME WHEN SELF-FEEDING EVEN WHEN CUED TO TAKE SMALL SIPS. GOALS FOR NEW STAFF EDUCATED/TRAINED IN POSTED PRECAUTIONS. PLAN: CONTINUE WITH PLAN OF CARE IN MOD BARIUM SWALLOW STUDY AND SWALLOW EVALUATION. D/W RN KRISTEN, TATYANA BOYD NOT AVAILABLE.
--- NOTE | 2019-10-19 14:06 | NUR ---
CASE MANAGEMENT:REVIEW SI;UTI. UNCONTROLLED DM. MORBID OBESITY. 10.6 66 14 92/59 95% ON RA WBC 12.7 K+ 5.4 IS;AMIKACIN IV Q24 HRS HEPARIN SUBQ Q12 HRS ACTOS PO QD JANUVIA PO QAM GLUCOPHAGE PO BID MED SURG STATUS DCP; FROM HOME Addendum: 10/20/19 at 1302 by AMY COY LVN LVN INCORRECT DOCUMENTATION - MORBID OBESITY.
[2019-10-19] MEDS: Amikacin 900 MG in NS 110 ML IV SCH (14:56)
[2019-10-19] MEDS ORDERED: Tubing IV Secondary IV ONE (15:13)
--- NOTE | 2019-10-19 15:15 | NUR ---
NURSE NOTES: Handed off patient to YUN Rodriguez.
--- NOTE | 2019-10-19 15:27 | NUR ---
NURSE NOTES: received patient on bed, awake alert oriented x2, confused reality orientation provided, No signs of respiratory distress or pain. HL patent. On fall and aspiration precaution, Bed in low and locked position, call light in reach. will continue to monitor. maribel rosado
--- NOTE | 2019-10-19 16:21 | Internal Med Progress Note ---
Subjective Date of Service: Oct 19, 2019 Physician Name Reynold Burton Attending Physician Ankush Hoffman MD Current Medications Medications (Trade) Dose Ordered Sig/Kelly Route PRN Reason Start Time Stop Time Status Last Admin Dose Admin Acetaminophen (Tylenol) 650 mg Q6H PRN ORAL Mild Pain/Temp > 100.5 10/14/19 06:00 11/13/19 05:59 10/19/19 00:35 Amikacin Protocol (Amikacin pharmacy to dose) 1 ea DAILY PRN MISC Per rx protocol 10/17/19 10:15 11/16/19 10:14 Amikacin Sulfate 900 mg/Sodium Chloride 113.6 ml @ 113.6 mls/ hr Q12H IV 10/20/19 00:00 10/27/19 00:00 Barium Sulfate (Varibar [place]) 250 ml NOW PRN Radiology Procedure 10/17/19 16:45 10/20/19 16:45 Barium Sulfate (Varibar [place]) 230 ml NOW PRN Radiology Procedure 10/17/19 16:45 10/20/19 16:45 Barium Sulfate (Varibar [place]) 230 ml NOW PRN Radiology Procedure 10/17/19 16:45 10/20/19 16:45 Benazepril HCl (Lotensin) 10 mg DAILY ORAL 10/13/19 09:00 11/12/19 08:59 10/18/19 08:37 Clonazepam (KlonoPIN) 0.5 mg TWICE A DAY ORAL 10/13/19 09:00 10/20/19 08:59 10/19/19 09:19 Dextrose (Dextrose 50%) 25 ml Q30M PRN IV Hypoglycemia 10/13/19 04:00 11/12/19 03:59 Dextrose (Dextrose 50%) 50 ml Q30M PRN IV Hypoglycemia 10/13/19 04:00 11/12/19 03:59 Divalproex Sodium (Depakote) 250 mg BEDTIME ORAL 10/18/19 21:00 11/17/19 20:59 10/18/19 21:39 Divalproex Sodium (Depakote) 1,500 mg BEDTIME ORAL 10/18/19 21:00 11/17/19 20:59 10/18/19 21:39 Heparin Sodium (Porcine) (Heparin 5000 units/ml) 5,000 units EVERY 12 HOURS SUBQ 10/13/19 09:00 11/12/19 08:59 10/19/19 09:20 Insulin Aspart (NovoLOG) BEFORE MEALS AND HS SUBQ 10/13/19 06:30 11/12/19 06:29 10/19/19 06:32 Levothyroxine Sodium (Synthroid) 75 mcg ACBREAKFAST ORAL 10/13/19 06:30 11/12/19 06:29 10/19/19 06:26 Metformin HCl (Glucophage) 1,000 mg BID ORAL 10/16/19 09:00 11/12/19 06:29 10/19/19 09:18 Nateglinide (Starlix) 120 mg TIAC ORAL 10/18/19 16:30 11/13/19 16:29 10/19/19 12:20 Pioglitazone HCl (Actos) 15 mg DAILY ORAL 10/13/19 09:00 11/12/19 08:59 10/19/19 09:19 Pravastatin Sodium (Pravachol) 20 mg BEDTIME ORAL 10/13/19 21:00 11/12/19 20:59 10/18/19 21:39 Sitagliptin Phosphate (Januvia) 100 mg ACBREAKFAST ORAL 10/14/19 13:45 11/13/19 13:44 10/19/19 06:26 Zolpidem Tartrate (Ambien) 5 mg BEDTIME PRN ORAL Insomnia 10/13/19 04:00 10/20/19 03:59 Allergies: Coded Allergies: No Known Allergies (Unverified , 10/12/19) ROS Limited/Unobtainable: No Constitutional: Reports: no symptoms HEENT: Reports: no symptoms Cardiovascular: Reports: no symptoms Respiratory: Reports: no symptoms Gastrointestinal/Abdominal: Reports: no symptoms Genitourinary: Reports: no symptoms Neurologic/Psychiatric: Reports: no symptoms Subjective 54 YO M admitted with uncontrolled diabetes, now UTI. Cover for Bibi Chandler-Dr Hoffman Objective Last Vital Signs Date Time Temp Pulse Resp B/P (MAP) Pulse Ox O2 Delivery O2 Flow Rate FiO2 10/19/19 15:26 Room Air 10/19/19 12:00 97.9 76 18 106/62 (77) 96 Laboratory Tests Test 10/18/19 19:55 10/19/19 05:35 Random Amikacin Level 4.4 MG/L White Blood Count 12.7 K/UL (4.8-10.8) H Red Blood Count 3.97 M/UL (4.70-6.10) L Hemoglobin 12.1 G/DL (14.2-18.0) L Hematocrit 35.7 % (42.0-52.0) L Mean Corpuscular Volume 90 FL (80-99) Mean Corpuscular Hemoglobin 30.5 PG (27.0-31.0) Mean Corpuscular Hemoglobin Concent 34.0 G/DL (32.0-36.0) Red Cell Distribution Width 12.3 % (11.6-14.8) Platelet Count 176 K/UL (150-450) Mean Platelet Volume 6.2 FL (6.5-10.1) L Neutrophils (%) (Auto) 70.3 % (45.0-75.0) Lymphocytes (%) (Auto) 19.5 % (20.0-45.0) L Monocytes (%) (Auto) 9.5 % (1.0-10.0) Eosinophils (%) (Auto) 0.1 % (0.0-3.0) Basophils (%) (Auto) 0.5 % (0.0-2.0) Sodium Level 137 MMOL/L (136-145) Potassium Level 5.4 MMOL/L (3.5-5.1) H Chloride Level 104 MMOL/L (98-107) Carbon Dioxide Level 26 MMOL/L (21-32) Anion Gap 7 mmol/L (5-15) Blood Urea Nitrogen 15 mg/dL (7-18) Creatinine 0.9 MG/DL (0.55-1.30) Estimat Glomerular Filtration Rate > 60 mL/min (>60) Glucose Level 204 MG/DL (74-106) H Calcium Level 8.5 MG/DL (8.5-10.1) Microbiology Date/Time Source Procedure Growth Status 10/17/19 10:00 Nasal Nares - Final Complete 10/17/19 10:00 Nasal Nares - Final Complete Intake and Output 10/18/19 10/19/19 19:00 07:00 Intake Total 833.6 ml 120 ml Balance 833.6 ml 120 ml Intake Oral 720 ml 120 ml IV Total 113.6 ml # Voids 3 5 Objective PHYSICAL EXAMINATION: GENERAL: The patient is awake and responsive, in no acute distress. HEAD AND NECK: Pupils are equal and reactive to light. Extraocular muscles intact. Neck was supple. No JVD. LUNGS: Good air entry with no wheezing or rales. HEART: S1, S2. Distant heart sounds. No gallops. ABDOMEN: Soft, nondistended, and nontender. Mildly obese. EXTREMITIES: No cyanosis, clubbing, or edema NEUROLOGIC: Cranial nerves II through XII grossly grossly intact. Motor is 5/5 in all extremities. Gait was not assessed due to the patient's status. RECTAL: Refused and deferred. GENITOURINARY: Refused and deferred. PSYCHIATRIC: Mood and affect is calm. Assessment/Plan Assessment/Plan ASSESSMENT: 1. Uncontrolled diabetes type 2, possible due to underlying infection such as urinary tract infection. 2. urinary tract infection=ESBL E. Coli 3. Dehydration. 4. Acute kidney injury on chronic renal insufficiency. 5. Proteinuria. 6. Developmental delay. 7. Hypothyroidism. 8. Seizure disorder. 9. Morbid obesity. PLAN: 1. Admit the patient to the medical floor. 2. Start the patient on IV hydration. 3. Accu-Chek with sliding scale. 4. Monitor laboratory. 5. antibiotic=Amikacin per ID 6. DVT prophylaxis with heparin subcutaneous. 7. ID=Dr. Gutierrez. 8. Endocrinology = Reynold Almeida MD Oct 19, 2019 16:21
[2019-10-19 16:28] VITALS: BP_SYST 131; BP_SYST 99; BP_DIAS 64; BP_DIAS 71
--- NOTE | 2019-10-19 18:27 | NUR ---
NURSE NOTES:WOUND CARE FOLLOW-UP NOTES:Pt's wounds L buttocks has resolved. Sacral area and both clefts of buttocks clean dry and pink. Both heels are blanchable. No new skin concerns noted. All wound prevention protocols continued as care-planned.
--- NOTE | 2019-10-19 19:19 | NUR ---
HAND-OFF: Report given to Ms Tania RN patient resting comfortably in bed no sign of distress maribel rosado.
[2019-10-19 20:00] VITALS: BP 123/76
--- NOTE | 2019-10-19 20:31 | NUR ---
NURSE NOTES: RECEIVED PT FROM YUN DE LA CRUZ. PT IS AWAKE, AAOX2, ON ROOM AIR, NO ACUTE DISTRESS NOTED. WOUND DRESSING INTACT AND DRY. IV ON LEFT WRIST IS INTACT AND PATENT. BED IS LOCKED AND LOW, BED ALARMS ACTIVE, SIDE RAILS UPX2 AND CALL LIGHT IS WITHIN REACH. WILL CONTINUE TO MONITOR.
[2019-10-19] MEDS: Depakote 500mg tab ORAL SCH (22:02)
[2019-10-20] VITALS: BP 142/67
[2019-10-20] MEDS: Amikacin 900 MG in NS 110 ML IV SCH ×2 (01:53→12:32)
[2019-10-20 04:00] VITALS: BP 107/66
[2019-10-20] MEDS: NovoLOG Insulin Flexpen SUBQ SCH ×4 (06:30→22:39)
--- NOTE | 2019-10-20 07:04 | General Progress Note ---
Assessment/Plan Problem List: (1) Hypothyroid ICD Codes: E03.9 - Hypothyroidism, unspecified SNOMED: 55995264 (2) Hyperglycemia ICD Codes: R73.9 - Hyperglycemia, unspecified SNOMED: 47866488 (3) Uncontrolled diabetes mellitus ICD Codes: E11.65 - Type 2 diabetes mellitus with hyperglycemia SNOMED: 93817216, 310092138 Assessment/Plan: continue Starlix 120 mg ac tid continue Januvia 100 mg daily continue Actos 15 mg daily continue Metformin 1000 mg bid continue NISS ac / hs continue Levothyroxine 75 mcg daily Subjective Allergies: Coded Allergies: No Known Allergies (Unverified , 10/12/19) All Systems: reviewed and negative except above Subjective events noted glucose values are mostly stable Item Value Date Time Bedside Blood Glucose 280 mg/dl H 10/19/19 2229 Bedside Blood Glucose 159 mg/dl H 10/19/19 1644 Bedside Blood Glucose 128 mg/dl H 10/19/19 1154 Bedside Blood Glucose 158 mg/dl H 10/19/19 0632 Objective Last 24 Hour Vital Signs Date Time Temp Pulse Resp B/P (MAP) Pulse Ox O2 Delivery O2 Flow Rate FiO2 10/20/19 04:00 97.2 72 18 107/66 (80) 94 10/20/19 00:00 98.0 79 12 142/67 (92) 98 10/19/19 21:00 Room Air 10/19/19 20:00 98.5 77 13 123/76 (92) 94 10/19/19 16:28 98.1 72 18 99/64 (76) 95 10/19/19 15:26 Room Air 10/19/19 12:00 97.9 76 18 106/62 (77) 96 10/19/19 09:00 Room Air 10/19/19 09:00 100/57 10/19/19 08:00 98.9 75 19 100/57 (71) 95 Intake and Output 10/19/19 10/20/19 19:00 07:00 Intake Total 650 ml Balance 650 ml Other 650 ml Laboratory Tests 10/20/19 06:42: White Blood Count [Pending], Red Blood Count [Pending], Hemoglobin [Pending], Hematocrit [Pending], Mean Corpuscular Volume [Pending], Mean Corpuscular Hemoglobin [Pending], Mean Corpuscular Hemoglobin Concent [Pending], Red Cell Distribution Width [Pending], Platelet Count [Pending], Mean Platelet Volume [ Pending], Neutrophils (%) (Auto) [Pending], Lymphocytes (%) (Auto) [Pending], Monocytes (%) (Auto) [Pending], Eosinophils (%) (Auto) [Pending], Basophils (%) (Auto) [Pending], Erythrocyte Sedimentation Rate [Pending], Sodium Level [ Pending], Potassium Level [Pending], Chloride Level [Pending], Carbon Dioxide Level [Pending], Blood Urea Nitrogen [Pending], Creatinine [Pending], Estimat Glomerular Filtration Rate [Pending], Glucose Level [Pending], Calcium Level [ Pending], Phosphorus Level [Pending], Magnesium Level [Pending], Total Bilirubin [Pending], Aspartate Amino Transf (AST/SGOT) [Pending], Alanine Aminotransferase (ALT/SGPT) [Pending], Alkaline Phosphatase [Pending], C- Reactive Protein, Quantitative [Pending], Total Protein [Pending], Albumin [ Pending], Globulin [Pending] Height (Feet): 5 Height (Inches): 5.00 Weight (Pounds): 169 General Appearance: no apparent distress Neck: normal alignment Cardiovascular: normal rate Abdomen: normal bowel sounds Pelvis: normal external exam Objective Current Medications Medications (Trade) Dose Ordered Sig/Kelly Route PRN Reason Start Time Stop Time Status Last Admin Dose Admin Acetaminophen (Tylenol) 650 mg Q6H PRN ORAL Mild Pain/Temp > 100.5 10/14/19 06:00 11/13/19 05:59 10/19/19 00:35 Amikacin Protocol (Amikacin pharmacy to dose) 1 ea DAILY PRN MISC Per rx protocol 10/17/19 10:15 11/16/19 10:14 Amikacin Sulfate 900 mg/Sodium Chloride 113.6 ml @ 113.6 mls/ hr Q12H IV 10/20/19 00:00 10/27/19 00:00 10/20/19 01:53 Barium Sulfate (Varibar Honey) 250 ml NOW PRN Radiology Procedure 10/17/19 16:45 10/20/19 16:45 Barium Sulfate (Varibar [place]) 230 ml NOW PRN Radiology Procedure 10/17/19 16:45 10/20/19 16:45 Barium Sulfate (Varibar Pudding) 230 ml NOW PRN Radiology Procedure 10/17/19 16:45 10/20/19 16:45 Benazepril HCl (Lotensin) 10 mg DAILY ORAL 10/13/19 09:00 11/12/19 08:59 10/18/19 08:37 Clonazepam (KlonoPIN) 0.5 mg TWICE A DAY ORAL 10/13/19 09:00 10/20/19 08:59 10/19/19 17:16 Dextrose (Dextrose 50%) 25 ml Q30M PRN IV Hypoglycemia 10/13/19 04:00 11/12/19 03:59 Dextrose (Dextrose 50%) 50 ml Q30M PRN IV Hypoglycemia 10/13/19 04:00 11/12/19 03:59 Divalproex Sodium (Depakote) 250 mg BEDTIME ORAL 10/18/19 21:00 11/17/19 20:59 10/19/19 22:02 Divalproex Sodium (Depakote) 1,500 mg BEDTIME ORAL 10/18/19 21:00 11/17/19 20:59 10/19/19 22:02 Heparin Sodium (Porcine) (Heparin 5000 units/ml) 5,000 units EVERY 12 HOURS SUBQ 10/13/19 09:00 11/12/19 08:59 10/19/19 22:03 Insulin Aspart (NovoLOG) BEFORE MEALS AND HS SUBQ 10/13/19 06:30 11/12/19 06:29 10/19/19 22:29 Levothyroxine Sodium (Synthroid) 75 mcg ACBREAKFAST ORAL 10/13/19 06:30 11/12/19 06:29 10/19/19 06:26 Metformin HCl (Glucophage) 1,000 mg BID ORAL 10/16/19 09:00 11/12/19 06:29 10/19/19 17:16 Nateglinide (Starlix) 120 mg TIAC ORAL 10/18/19 16:30 11/13/19 16:29 10/19/19 17:16 Pioglitazone HCl (Actos) 15 mg DAILY ORAL 10/13/19 09:00 11/12/19 08:59 10/19/19 09:19 Pravastatin Sodium (Pravachol) 20 mg BEDTIME ORAL 10/13/19 21:00 11/12/19 20:59 10/19/19 22:01 Sitagliptin Phosphate (Januvia) 100 mg ACBREAKFAST ORAL 10/14/19 13:45 11/13/19 13:44 10/19/19 06:26 Prosper Boateng MD Oct 20, 2019 07:04
[2019-10-20 07:32] LABS: HEMATOCRIT 34.6 % (42.0-52.0); MEAN CORPUSCULAR VOLUME 87 FL (80-99); PLATELET COUNT 219 K/UL (150-450); RED BLOOD COUNT 3.98 M/UL (4.70-6.10); RED CELL DISTRIBUTION WIDTH 12.9 % (11.6-14.8); WHITE BLOOD COUNT 7.8 K/UL (4.8-10.8)
--- NOTE | 2019-10-20 07:34 | NUR ---
NURSE NOTES: received patient in bed, awake alert oriented x2,eating no signs of respiratory distress or pain. HL patent. On fall and aspiration precaution, Bed in low and locked position, call light in reach. will continue to monitor. maribel rosado
[2019-10-20 07:42] LABS: ALANINE AMINOTRANSFERASE 25 U/L (12-78); ALBUMIN 1.9 G/DL (3.4-5.0); ALBUMIN/GLOBULIN RATIO 0.4 (1.0-2.7); ALKALINE PHOSPHATASE 67 U/L (46-116); ANION GAP 9 mmol/L (5-15); ASPARTATE AMINO TRANSFERASE 27 U/L (15-37); BILIRUBIN,TOTAL 0.2 MG/DL (0.2-1.0); BLOOD UREA NITROGEN 12 mg/dL (7-18); CALCIUM 8.7 MG/DL (8.5-10.1); CARBON DIOXIDE 28 MMOL/L (21-32); CHLORIDE 104 MMOL/L (98-107); CREATININE 0.7 MG/DL (0.55-1.30); PHOSPHORUS 4.6 MG/DL (2.5-4.9); POTASSIUM 4.3 MMOL/L (3.5-5.1); SODIUM 141 MMOL/L (136-145)
[2019-10-20 08:00] VITALS: BP 113/77
[2019-10-20] MEDS: Benazepril 10mg tab ORAL SCH (08:11)
[2019-10-20] MEDS: metFORMIN 500mg tab ORAL SCH ×2 (08:12→17:17)
[2019-10-20] MEDS: Heparin 5000 units/ml inj SUBQ SCH ×2 (08:16→22:39)
--- NOTE | 2019-10-20 08:26 | NUR ---
HAND-OFF: Report given to YUN Hinojosa.
[2019-10-20 12:34] VITALS: BP 119/79
[2019-10-20] MEDS ORDERED: AMIKACIN S1000 MG/4 IJ (13:00)
--- NOTE | 2019-10-20 13:25 | NUR ---
CASE MANAGEMENT:DISCHARGE NOTE PATIENT IS DISCHARGED TO RETURN TO [facility] & CARE CALL MADE TO [employer]ELD SUPERVISOR [employer], JOSE ALFREDO CAMEJO P: [phone] PER Daphnie VELIZ&Jose STAFF MEMBER WILL SENIOR SOFTWARE SYSTEMS ENGINEER PAT[place] [facility] [place] 1430 PM [employer] FIELD SUPERVISOR [employer] REQUEST FOR DISCHARGE INSTRUCTIONS TO INCLUDE PATIENT MAY RETURN TO [facility] OR IF POSSIBLE TO PROVIDE MD ORDER RN INFORMED OF PATIENT SENIOR SOFTWARE SYSTEMS ENGINEER AT 1430 PM AND [employer] REQUEST FOR ORDER
--- NOTE | 2019-10-20 15:04 | NUR ---
DISCHARGE SWALLOW/SPEECH THERAPY SUMMARY: SEEN FOR DYSPHAGIA, SEE SWALLOW EVALUATION AND MODIFIED BARIUM SWALLOW STUDY REPORTS. GOALS MET FOR STAFF EDUCATED/TRAINED IN POSTED ASPIRATION PRECAUTIONS. GOALS MET [facility]AN[facility] SOFT GROUND DIET AND NECTAR THICK LIQUIDS WITH POSTED ASPIRATION PRECAUTIONS AND ASSIST WITH MEALS. PLAN: F/UP WITH ARCHITECTURAL INSPECTOR AT D/C SETTING FOR CONTINUE SKILLED DYSPHAGIA MANAGEMENT AND TX AND SPEECH EVAL/TX
--- NOTE | 2019-10-20 15:15 | NUR ---
*-* INSURANCE *-* ALL CLINICALS AND REVIEWS HAVE BEEN FAXED TO: JOSELINE NO STRIP CATCHER ASSIGNED AT THIS TIME P- [phone] F- [phone]...REVIEW/CLINICAL
[2019-10-20 15:42] VITALS: BP 105/66
--- NOTE | 2019-10-20 16:00 | NUR ---
nurse notes notified Dr Velarde regarding IV atb and health care facilities inspector stated per Katelin patient will not going home today due to IV atb, with order noted will hold discharge , patient and health care facilities inspector notified agrred with the plan of care maribel rosado
--- NOTE | 2019-10-20 16:14 | Internal Med Progress Note ---
Subjective Physician Name Ankush Hoffman Attending Physician Ankush Hoffman MD Current Medications Medications (Trade) Dose Ordered Sig/Kelly Route PRN Reason Start Time Stop Time Status Last Admin Dose Admin Acetaminophen (Tylenol) 650 mg Q6H PRN ORAL Mild Pain/Temp > 100.5 10/14/19 06:00 11/13/19 05:59 10/19/19 00:35 Amikacin Protocol (Amikacin pharmacy to dose) 1 ea DAILY PRN MISC Per rx protocol 10/17/19 10:15 11/16/19 10:14 Amikacin Sulfate 900 mg/Sodium Chloride 113.6 ml @ 113.6 mls/ hr Q12H IV 10/20/19 00:00 10/27/19 00:00 10/20/19 12:32 Barium Sulfate (Varibar Honey) 250 ml NOW PRN Radiology Procedure 10/17/19 16:45 10/20/19 16:45 Barium Sulfate (Varibar [place]) 230 ml NOW PRN Radiology Procedure 10/17/19 16:45 10/20/19 16:45 Barium Sulfate (Varibar Pudding) 230 ml NOW PRN Radiology Procedure 10/17/19 16:45 10/20/19 16:45 Benazepril HCl (Lotensin) 10 mg DAILY ORAL 10/13/19 09:00 11/12/19 08:59 10/20/19 08:11 Dextrose (Dextrose 50%) 25 ml Q30M PRN IV Hypoglycemia 10/13/19 04:00 11/12/19 03:59 Dextrose (Dextrose 50%) 50 ml Q30M PRN IV Hypoglycemia 10/13/19 04:00 11/12/19 03:59 Divalproex Sodium (Depakote) 250 mg BEDTIME ORAL 10/18/19 21:00 11/17/19 20:59 10/19/19 22:02 Divalproex Sodium (Depakote) 1,500 mg BEDTIME ORAL 10/18/19 21:00 11/17/19 20:59 10/19/19 22:02 Heparin Sodium (Porcine) (Heparin 5000 units/ml) 5,000 units EVERY 12 HOURS SUBQ 10/13/19 09:00 11/12/19 08:59 10/20/19 08:16 Insulin Aspart (NovoLOG) BEFORE MEALS AND HS SUBQ 10/13/19 06:30 11/12/19 06:29 10/20/19 12:27 Levothyroxine Sodium (Synthroid) 75 mcg ACBREAKFAST ORAL 10/13/19 06:30 11/12/19 06:29 10/20/19 07:12 Metformin HCl (Glucophage) 1,000 mg BID ORAL 10/16/19 09:00 11/12/19 06:29 10/20/19 08:12 Nateglinide (Starlix) 120 mg TIAC ORAL 10/18/19 16:30 11/13/19 16:29 10/20/19 12:25 Pioglitazone HCl (Actos) 15 mg DAILY ORAL 10/13/19 09:00 11/12/19 08:59 10/20/19 08:12 Pravastatin Sodium (Pravachol) 20 mg BEDTIME ORAL 10/13/19 21:00 11/12/19 20:59 10/19/19 22:01 Sitagliptin Phosphate (Januvia) 100 mg ACBREAKFAST ORAL 10/14/19 13:45 11/13/19 13:44 10/20/19 07:11 Allergies: Coded Allergies: No Known Allergies (Unverified , 10/12/19) Subjective Awake, alert, responsive, denies any chest pain or shortness of breath. Objective Last Vital Signs Date Time Temp Pulse Resp B/P (MAP) Pulse Ox O2 Delivery O2 Flow Rate FiO2 10/20/19 15:42 97.5 82 18 105/66 (79) 96 10/20/19 08:20 Room Air Laboratory Tests Test 10/20/19 06:42 White Blood Count 7.8 K/UL (4.8-10.8) Red Blood Count 3.98 M/UL (4.70-6.10) L Hemoglobin 12.0 G/DL (14.2-18.0) L Hematocrit 34.6 % (42.0-52.0) L Mean Corpuscular Volume 87 FL (80-99) Mean Corpuscular Hemoglobin 30.1 PG (27.0-31.0) Mean Corpuscular Hemoglobin Concent 34.6 G/DL (32.0-36.0) Red Cell Distribution Width 12.9 % (11.6-14.8) Platelet Count 219 K/UL (150-450) Mean Platelet Volume 6.1 FL (6.5-10.1) L Neutrophils (%) (Auto) % (45.0-75.0) Lymphocytes (%) (Auto) % (20.0-45.0) Monocytes (%) (Auto) % (1.0-10.0) Eosinophils (%) (Auto) % (0.0-3.0) Basophils (%) (Auto) % (0.0-2.0) Differential Total Cells Counted 100 Neutrophils % (Manual) 60 % (45-75) Lymphocytes % (Manual) 28 % (20-45) Monocytes % (Manual) 12 % (1-10) H Eosinophils % (Manual) 0 % (0-3) Basophils % (Manual) 0 % (0-2) Band Neutrophils 0 % (0-8) Platelet Estimate Adequate Platelet Morphology Normal Red Blood Cell Morphology Normal Erythrocyte Sedimentation Rate 88 MM/HR (0-20) H Sodium Level 141 MMOL/L (136-145) Potassium Level 4.3 MMOL/L (3.5-5.1) Chloride Level 104 MMOL/L (98-107) Carbon Dioxide Level 28 MMOL/L (21-32) Anion Gap 9 mmol/L (5-15) Blood Urea Nitrogen 12 mg/dL (7-18) Creatinine 0.7 MG/DL (0.55-1.30) Estimat Glomerular Filtration Rate > 60 mL/min (>60) Glucose Level 118 MG/DL (74-106) H Calcium Level 8.7 MG/DL (8.5-10.1) Phosphorus Level 4.6 MG/DL (2.5-4.9) Magnesium Level 2.1 MG/DL (1.8-2.4) Total Bilirubin 0.2 MG/DL (0.2-1.0) Aspartate Amino Transf (AST/SGOT) 27 U/L (15-37) Alanine Aminotransferase (ALT/SGPT) 25 U/L (12-78) Alkaline Phosphatase 67 U/L (46-116) C-Reactive Protein, Quantitative 12.0 mg/dL (0.00-0.90) H Total Protein 7.0 G/DL (6.4-8.2) Albumin 1.9 G/DL (3.4-5.0) L Globulin 5.1 g/dL Albumin/Globulin Ratio 0.4 (1.0-2.7) L Intake and Output 10/19/19 10/20/19 19:00 07:00 Intake Total 650 ml Balance 650 ml Other 650 ml # Voids 2 # Bowel Movements 1 Objective General: No acute distress, awake and alert HEENT: NCAT, sclera anicteric, PERRL, EOMI. Neck: Supple, no significant jugular venous distention, Lungs: Good inspiratory effort, no Wheeze or Rales. Heart: Regular rate and rhythm, normal S1/S2, no murmur. Abdomen: soft, nontender, nondistended. Normoactive bowel sounds. / Rectal: Refused and deferred. Extremities: No Cyanosis , clubbing or edema. Neuro: A&O x 3, Able to move all extremities, gait was not assessed due to patient status. Skin: warm, no rashes or lesions Psych: Normal mood and affect Assessment/Plan Assessment/Plan 1. Uncontrolled diabetes type 2, possible due to underlying urinary tract infection. 2. Acute coli ESBL urinary tract infection. 3. Dehydration. 4. Acute kidney injury on chronic renal insufficiency. 5. Proteinuria. 6. Developmental delay. 7. Hypothyroidism. 8. Seizure disorder. 9. Morbid obesity. PLAN: 1. on medical floor. 2. Discharge planning to boarding care with home health. 3. Accu-Chek with sliding scale. 4. Monitor laboratory. 5. Amikacin IV. 6. DVT prophylaxis with heparin subcutaneous. 7. We will follow up with the ID consultation with Dr. Gutierrez. Ankush Hoffman MD Oct 20, 2019 16:14
--- NOTE | 2019-10-20 16:48 | Infectious Diseases Prog Note ---
Assessment/Plan Assessment/Plan Assessment: SEpsis Fever, recurrent; improving Leukocytosis, recurrent- SP UTI -u/a wbc 2-4, nit +, leuk +1; ucx >100k ESBL E.coli (S Zosyn, Ertapenem, Amikacin, bactrim) -CXR: No acute process -10/13 Bcx NTD -influenza sc neg Hyperglycemia; improving OCTAVIA, SP seizure disorder developmental delay Plan: Continue IV AMikacin #/ for ESBL E.coli UTI in view of fever and leukocytosis (there is interaction between carbapenem and valproic acid) -ok to discharge on PO Bactrim DS 1 tab bid for 3 more days -10/17 SP Zosyn #4 -10/14 SP Ceftriaxone #2 -f/u cx -Monitor CBC/CMP, temperatures -aspiration precautions -If T >101, repeat 2 sets of Bcx Thank you for this consultation. Will continue to follow along with you. Subjective Allergies: Coded Allergies: No Known Allergies (Unverified , 10/12/19) Subjective afebrile >24hrs mild leukocytosis resolved discharge planning Objective Vital Signs Last 24 Hour Vital Signs Date Time Temp Pulse Resp B/P (MAP) Pulse Ox O2 Delivery O2 Flow Rate FiO2 10/20/19 15:42 97.5 82 18 105/66 (79) 96 10/20/19 12:34 98.3 80 18 119/79 (92) 98 10/20/19 08:20 Room Air 10/20/19 08:11 107/66 10/20/19 08:00 98.1 84 18 113/77 (89) 93 10/20/19 04:00 97.2 72 18 107/66 (80) 94 10/20/19 00:00 98.0 79 12 142/67 (92) 98 10/19/19 21:00 Room Air 10/19/19 20:00 98.5 77 13 123/76 (92) 94 Height (Feet): 5 Height (Inches): 5.00 Weight (Pounds): 169 Objective GENERAL: The patient is awake and responsive, in no acute distress. HEAD AND NECK: Pupils are equal and reactive to light. Extraocular muscles intact. Neck was supple. No JVD. LUNGS: Good air entry with no wheezing or rales. HEART: S1, S2. Distant heart sounds. No gallops. ABDOMEN: Soft, nondistended, and nontender. Mildly obese. EXTREMITIES: No cyanosis, clubbing, or edema Laboratory Tests Test 10/20/19 06:42 White Blood Count 7.8 K/UL (4.8-10.8) Red Blood Count 3.98 M/UL (4.70-6.10) L Hemoglobin 12.0 G/DL (14.2-18.0) L Hematocrit 34.6 % (42.0-52.0) L Mean Corpuscular Volume 87 FL (80-99) Mean Corpuscular Hemoglobin 30.1 PG (27.0-31.0) Mean Corpuscular Hemoglobin Concent 34.6 G/DL (32.0-36.0) Red Cell Distribution Width 12.9 % (11.6-14.8) Platelet Count 219 K/UL (150-450) Mean Platelet Volume 6.1 FL (6.5-10.1) L Neutrophils (%) (Auto) % (45.0-75.0) Lymphocytes (%) (Auto) % (20.0-45.0) Monocytes (%) (Auto) % (1.0-10.0) Eosinophils (%) (Auto) % (0.0-3.0) Basophils (%) (Auto) % (0.0-2.0) Differential Total Cells Counted 100 Neutrophils % (Manual) 60 % (45-75) Lymphocytes % (Manual) 28 % (20-45) Monocytes % (Manual) 12 % (1-10) H Eosinophils % (Manual) 0 % (0-3) Basophils % (Manual) 0 % (0-2) Band Neutrophils 0 % (0-8) Platelet Estimate Adequate Platelet Morphology Normal Red Blood Cell Morphology Normal Erythrocyte Sedimentation Rate 88 MM/HR (0-20) H Sodium Level 141 MMOL/L (136-145) Potassium Level 4.3 MMOL/L (3.5-5.1) Chloride Level 104 MMOL/L (98-107) Carbon Dioxide Level 28 MMOL/L (21-32) Anion Gap 9 mmol/L (5-15) Blood Urea Nitrogen 12 mg/dL (7-18) Creatinine 0.7 MG/DL (0.55-1.30) Estimat Glomerular Filtration Rate > 60 mL/min (>60) Glucose Level 118 MG/DL (74-106) H Calcium Level 8.7 MG/DL (8.5-10.1) Phosphorus Level 4.6 MG/DL (2.5-4.9) Magnesium Level 2.1 MG/DL (1.8-2.4) Total Bilirubin 0.2 MG/DL (0.2-1.0) Aspartate Amino Transf (AST/SGOT) 27 U/L (15-37) Alanine Aminotransferase (ALT/SGPT) 25 U/L (12-78) Alkaline Phosphatase 67 U/L (46-116) C-Reactive Protein, Quantitative 12.0 mg/dL (0.00-0.90) H Total Protein 7.0 G/DL (6.4-8.2) Albumin 1.9 G/DL (3.4-5.0) L Globulin 5.1 g/dL Albumin/Globulin Ratio 0.4 (1.0-2.7) L Current Medications Medications (Trade) Dose Ordered Sig/Kelly Route PRN Reason Start Time Stop Time Status Last Admin Dose Admin Acetaminophen (Tylenol) 650 mg Q6H PRN ORAL Mild Pain/Temp > 100.5 10/14/19 06:00 11/13/19 05:59 10/19/19 00:35 Amikacin Protocol (Amikacin pharmacy to dose) 1 ea DAILY PRN MISC Per rx protocol 10/17/19 10:15 11/16/19 10:14 Amikacin Sulfate 900 mg/Sodium Chloride 113.6 ml @ 113.6 mls/ hr Q12H IV 10/20/19 00:00 10/27/19 00:00 10/20/19 12:32 Barium Sulfate (Varibar Honey) 250 ml NOW PRN Radiology Procedure 10/17/19 16:45 10/20/19 16:45 Barium Sulfate (Varibar [place]) 230 ml NOW PRN Radiology Procedure 10/17/19 16:45 10/20/19 16:45 Barium Sulfate (Varibar Pudding) 230 ml NOW PRN Radiology Procedure 10/17/19 16:45 10/20/19 16:45 Benazepril HCl (Lotensin) 10 mg DAILY ORAL 10/13/19 09:00 11/12/19 08:59 10/20/19 08:11 Dextrose (Dextrose 50%) 25 ml Q30M PRN IV Hypoglycemia 10/13/19 04:00 11/12/19 03:59 Dextrose (Dextrose 50%) 50 ml Q30M PRN IV Hypoglycemia 10/13/19 04:00 11/12/19 03:59 Divalproex Sodium (Depakote) 250 mg BEDTIME ORAL 10/18/19 21:00 11/17/19 20:59 10/19/19 22:02 Divalproex Sodium (Depakote) 1,500 mg BEDTIME ORAL 10/18/19 21:00 11/17/19 20:59 10/19/19 22:02 Heparin Sodium (Porcine) (Heparin 5000 units/ml) 5,000 units EVERY 12 HOURS SUBQ 10/13/19 09:00 11/12/19 08:59 10/20/19 08:16 Insulin Aspart (NovoLOG) BEFORE MEALS AND HS SUBQ 10/13/19 06:30 11/12/19 06:29 10/20/19 16:19 Levothyroxine Sodium (Synthroid) 75 mcg ACBREAKFAST ORAL 10/13/19 06:30 11/12/19 06:29 10/20/19 07:12 Metformin HCl (Glucophage) 1,000 mg BID ORAL 10/16/19 09:00 11/12/19 06:29 10/20/19 08:12 Nateglinide (Starlix) 120 mg TIAC ORAL 10/18/19 16:30 11/13/19 16:29 10/20/19 12:25 Pioglitazone HCl (Actos) 15 mg DAILY ORAL 10/13/19 09:00 11/12/19 08:59 10/20/19 08:12 Pravastatin Sodium (Pravachol) 20 mg BEDTIME ORAL 10/13/19 21:00 11/12/19 20:59 10/19/19 22:01 Sitagliptin Phosphate (Januvia) 100 mg ACBREAKFAST ORAL 10/14/19 13:45 11/13/19 13:44 10/20/19 07:11 Roxana Gutierrez M.D. Oct 20, 2019 16:48
--- NOTE | 2019-10-20 18:39 | NUR ---
nurse notes Dr Gutierrez came and gave prescription for po antibiotic , paged Syd if ok to discharge patient maribel rosado
--- NOTE | 2019-10-20 18:52 | NUR ---
nurse notes called and left message to Adama Lopez tel no [phone] and billy emmanuel tel no [phone] patient Winston have an order to discharge today awaiting for their call maribel rosado
--- NOTE | 2019-10-20 19:33 | NUR ---
HAND-OFF: Report given to YUN Mcintyre FOR CONTINUITY OF CARE yun rosado
[2019-10-20 20:00] VITALS: BP 105/66
--- NOTE | 2019-10-20 20:13 | NUR ---
NURSE NOTES: Patient in bed, awake, able to make need known. Respiration is even and unlabored. No complaint of pain or discomfort noted. IV site noted. Skin is warm and dry to touch. Abdomen is soft. Bed in low and locked position. Provided safe environment. call light is at bedside. Will continue plan of care. Will follow up regarding discharge. Will call board and care if patient is able to be picked up. Charge nurse made aware. Left and message.
--- NOTE | 2019-10-20 22:30 | NUR ---
NURSE NOTES: Spoke to John Galan, from the Board and care. Refused to accept patient in time. Requested to follow up tomorrow morning. Charge nurse made aware. Patient is in bed. No s/s of distress noted.
[2019-10-20] MEDS: Depakote 500mg tab ORAL SCH (22:38)
[2019-10-21] VITALS (7 sets, daily range): BP systolic 103–130; BP diastolic 56–86
[2019-10-21] MEDS: Amikacin 900 MG in NS 110 ML IV SCH ×3 (00:17→23:12)
[2019-10-21] MEDS ORDERED: BACTRIM DS TAB1 EAC1 ORAL (01:34)
--- NOTE | 2019-10-21 03:30 | NUR ---
NURSE NOTES: Pt. received from YUN Mcintyre. Pt. asleep at this time, no indications of pain and no respiratory distress noted. IV left hand 22g asymptomatic, intact, and patent. Bed is low and locked, side rails x3 up and padded, bed alarm active, and call light is in reach. Will continue to monitor.
[2019-10-21] MEDS: NovoLOG Insulin Flexpen SUBQ SCH ×4 (06:12→21:00)
--- NOTE | 2019-10-21 07:49 | NUR ---
HAND-OFF: Report given to YUN French.
--- NOTE | 2019-10-21 07:49 | NUR ---
NURSE NOTES: Patient alert to name,respirations unlabored.Patient sitting up in bed and eating breakfast.Side rails are padded.Call light within reach.
[2019-10-21] MEDS: Benazepril 10mg tab ORAL SCH (09:00)
[2019-10-21] MEDS: metFORMIN 500mg tab ORAL SCH ×2 (09:38→18:37)
[2019-10-21] MEDS: Heparin 5000 units/ml inj SUBQ SCH ×2 (09:42→21:18)
--- NOTE | 2019-10-21 10:56 | Infectious Diseases Prog Note ---
Assessment/Plan Assessment/Plan Assessment: SEpsis Fever, recurrent; improving Leukocytosis, recurrent- SP UTI -u/a wbc 2-4, nit +, leuk +1; ucx >100k ESBL E.coli (S Zosyn, Ertapenem, Amikacin, bactrim) -CXR: No acute process -10/13 Bcx NTD -influenza sc neg Hyperglycemia; improving OCTAVIA, SP seizure disorder developmental delay Plan: Continue IV AMikacin #/ for ESBL E.coli UTI in view of fever and leukocytosis (there is interaction between carbapenem and valproic acid) -ok to discharge on PO Bactrim DS 1 tab bid for 3 more days -10/17 SP Zosyn #4 -10/14 SP Ceftriaxone #2 -f/u cx -Monitor CBC/CMP, temperatures -aspiration precautions -If T >101, repeat 2 sets of Bcx Thank you for this consultation. Will continue to follow along with you. Subjective Allergies: Coded Allergies: No Known Allergies (Unverified , 10/12/19) Subjective Afebrile No Leukocytosis Objective Vital Signs Last 24 Hour Vital Signs Date Time Temp Pulse Resp B/P (MAP) Pulse Ox O2 Delivery O2 Flow Rate FiO2 10/21/19 09:51 Room Air 10/21/19 09:31 87 107/70 (82) 10/21/19 09:00 107/70 10/21/19 08:00 98.6 85 18 114/63 (80) 94 10/21/19 04:00 98.2 69 20 109/56 (73) 94 10/21/19 00:00 97.5 80 20 103/65 (78) 95 10/20/19 21:00 Room Air 10/20/19 20:00 97.3 75 18 105/66 (79) 98 10/20/19 15:42 97.5 82 18 105/66 (79) 96 10/20/19 12:34 98.3 80 18 119/79 (92) 98 Height (Feet): 5 Height (Inches): 5.00 Weight (Pounds): 169 Objective GENERAL: no acute distress. HEAD AND NECK: Pupils are equal and reactive to light. Extraocular muscles intact. LUNGS: Good air entry with no wheezing or rales. HEART: S1, S2. Distant heart sounds. No gallops. ABDOMEN: Soft, nondistended, and nontender. Microbiology Date/Time Source Procedure Growth Status 10/19/19 10:00 Blood Blood Culture - Preliminary NO GROWTH AFTER 24 HOURS Resulted 10/19/19 09:50 Blood Blood Culture - Preliminary NO GROWTH AFTER 24 HOURS Resulted Current Medications Medications (Trade) Dose Ordered Sig/Kelly Route PRN Reason Start Time Stop Time Status Last Admin Dose Admin Acetaminophen (Tylenol) 650 mg Q6H PRN ORAL Mild Pain/Temp > 100.5 10/14/19 06:00 11/13/19 05:59 10/19/19 00:35 Amikacin Protocol (Amikacin pharmacy to dose) 1 ea DAILY PRN MISC Per rx protocol 10/17/19 10:15 11/16/19 10:14 Amikacin Sulfate 900 mg/Sodium Chloride 113.6 ml @ 113.6 mls/ hr Q12H IV 10/20/19 00:00 10/27/19 00:00 10/21/19 00:17 Benazepril HCl (Lotensin) 10 mg DAILY ORAL 10/13/19 09:00 11/12/19 08:59 10/20/19 08:11 Dextrose (Dextrose 50%) 25 ml Q30M PRN IV Hypoglycemia 10/13/19 04:00 11/12/19 03:59 Dextrose (Dextrose 50%) 50 ml Q30M PRN IV Hypoglycemia 10/13/19 04:00 11/12/19 03:59 Divalproex Sodium (Depakote) 250 mg BEDTIME ORAL 10/18/19 21:00 11/17/19 20:59 10/20/19 22:38 Divalproex Sodium (Depakote) 1,500 mg BEDTIME ORAL 10/18/19 21:00 11/17/19 20:59 10/20/19 22:38 Heparin Sodium (Porcine) (Heparin 5000 units/ml) 5,000 units EVERY 12 HOURS SUBQ 10/13/19 09:00 11/12/19 08:59 10/21/19 09:42 Insulin Aspart (NovoLOG) BEFORE MEALS AND HS SUBQ 10/13/19 06:30 11/12/19 06:29 10/20/19 22:39 Levothyroxine Sodium (Synthroid) 75 mcg ACBREAKFAST ORAL 10/13/19 06:30 2/16/20 06:29 10/21/19 06:12 Metformin HCl (Glucophage) 1,000 mg BID ORAL 10/16/19 09:00 11/12/19 06:29 10/21/19 09:38 Nateglinide (Starlix) 120 mg TIAC ORAL 10/18/19 16:30 11/13/19 16:29 10/21/19 06:13 Pioglitazone HCl (Actos) 15 mg DAILY ORAL 10/13/19 09:00 11/12/19 08:59 10/21/19 09:38 Pravastatin Sodium (Pravachol) 20 mg BEDTIME ORAL 10/13/19 21:00 11/12/19 20:59 10/20/19 22:37 Sitagliptin Phosphate (Januvia) 100 mg ACBREAKFAST ORAL 10/14/19 13:45 11/13/19 13:44 10/21/19 06:12 Joseph Shaffer MD Oct 21, 2019 10:56
--- NOTE | 2019-10-21 13:51 | NUR ---
CHARGE NURSE NOTE: Pt has a discharge order . Spoke with his pt's [facility] if they are able to accept patient. He states if pt is ambulatory they will. Pt will be assess for ambulation by primary nurse.
--- NOTE | 2019-10-21 14:04 | Internal Med Progress Note ---
Subjective Date of Service: Oct 21, 2019 Physician Name Reynold Burton Attending Physician Ankush Hoffman MD Current Medications Medications (Trade) Dose Ordered Sig/Kelly Route PRN Reason Start Time Stop Time Status Last Admin Dose Admin Acetaminophen (Tylenol) 650 mg Q6H PRN ORAL Mild Pain/Temp > 100.5 10/14/19 06:00 11/13/19 05:59 10/19/19 00:35 Amikacin Protocol (Amikacin pharmacy to dose) 1 ea DAILY PRN MISC Per rx protocol 10/17/19 10:15 11/16/19 10:14 Amikacin Sulfate 900 mg/Sodium Chloride 113.6 ml @ 113.6 mls/ hr Q12H IV 10/20/19 00:00 10/27/19 00:00 10/21/19 12:10 Benazepril HCl (Lotensin) 10 mg DAILY ORAL 10/13/19 09:00 11/12/19 08:59 10/20/19 08:11 Dextrose (Dextrose 50%) 25 ml Q30M PRN IV Hypoglycemia 10/13/19 04:00 11/12/19 03:59 Dextrose (Dextrose 50%) 50 ml Q30M PRN IV Hypoglycemia 10/13/19 04:00 11/12/19 03:59 Divalproex Sodium (Depakote) 250 mg BEDTIME ORAL 10/18/19 21:00 11/17/19 20:59 10/20/19 22:38 Divalproex Sodium (Depakote) 1,500 mg BEDTIME ORAL 10/18/19 21:00 11/17/19 20:59 10/20/19 22:38 Heparin Sodium (Porcine) (Heparin 5000 units/ml) 5,000 units EVERY 12 HOURS SUBQ 10/13/19 09:00 11/12/19 08:59 10/21/19 09:42 Insulin Aspart (NovoLOG) BEFORE MEALS AND HS SUBQ 10/13/19 06:30 11/12/19 06:29 10/20/19 22:39 Levothyroxine Sodium (Synthroid) 75 mcg ACBREAKFAST ORAL 10/13/19 06:30 11/12/19 06:29 10/21/19 06:12 Metformin HCl (Glucophage) 1,000 mg BID ORAL 10/16/19 09:00 11/12/19 06:29 10/21/19 09:38 Nateglinide (Starlix) 120 mg TIAC ORAL 10/18/19 16:30 11/13/19 16:29 10/21/19 12:10 Pioglitazone HCl (Actos) 15 mg DAILY ORAL 10/13/19 09:00 11/12/19 08:59 10/21/19 09:38 Pravastatin Sodium (Pravachol) 20 mg BEDTIME ORAL 10/13/19 21:00 11/12/19 20:59 10/20/19 22:37 Sitagliptin Phosphate (Januvia) 100 mg ACBREAKFAST ORAL 10/14/19 13:45 11/13/19 13:44 10/21/19 06:12 Allergies: Coded Allergies: No Known Allergies (Unverified , 10/12/19) ROS Limited/Unobtainable: No Constitutional: Reports: no symptoms HEENT: Reports: no symptoms Cardiovascular: Reports: no symptoms Respiratory: Reports: no symptoms Gastrointestinal/Abdominal: Reports: no symptoms Genitourinary: Reports: no symptoms Neurologic/Psychiatric: Reports: no symptoms Subjective 54 YO M admitted with uncontrolled diabetes, now UTI. Cover for Int Med-Dr Hoffman Objective Last Vital Signs Date Time Temp Pulse Resp B/P (MAP) Pulse Ox O2 Delivery O2 Flow Rate FiO2 10/21/19 09:51 Room Air 10/21/19 09:31 87 107/70 (82) 10/21/19 08:00 98.6 18 94 Microbiology Date/Time Source Procedure Growth Status 10/19/19 10:00 Blood Blood Culture - Preliminary NO GROWTH AFTER 24 HOURS Resulted 10/19/19 09:50 Blood Blood Culture - Preliminary NO GROWTH AFTER 24 HOURS Resulted Intake and Output 10/20/19 10/21/19 19:00 07:00 Intake Total 1313 ml 313.6 ml Balance 1313 ml 313.6 ml Intake Oral 200 ml IV Total 113 ml 113.6 ml Other 1200 ml # Voids 1 Objective PHYSICAL EXAMINATION: GENERAL: The patient is awake and responsive, in no acute distress. HEAD AND NECK: Pupils are equal and reactive to light. Extraocular muscles intact. Neck was supple. No JVD. LUNGS: Good air entry with no wheezing or rales. HEART: S1, S2. Distant heart sounds. No gallops. ABDOMEN: Soft, nondistended, and nontender. Mildly obese. EXTREMITIES: No cyanosis, clubbing, or edema NEUROLOGIC: Cranial nerves II through XII grossly grossly intact. Motor is 5/5 in all extremities. Gait was not assessed due to the patient's status. RECTAL: Refused and deferred. GENITOURINARY: Refused and deferred. PSYCHIATRIC: Mood and affect is calm. Assessment/Plan Assessment/Plan ASSESSMENT: 1. Uncontrolled diabetes type 2, possible due to underlying infection such as urinary tract infection. 2. urinary tract infection=ESBL E. Coli 3. Dehydration. 4. Acute kidney injury on chronic renal insufficiency. 5. Proteinuria. 6. Developmental delay. 7. Hypothyroidism. 8. Seizure disorder. 9. Morbid obesity. PLAN: 1. Admit the patient to the medical floor. 2. Start the patient on IV hydration. 3. Accu-Chek with sliding scale. 4. Monitor laboratory. 5. antibiotic=Amikacin per ID 6. DVT prophylaxis with heparin subcutaneous. 7. ID=Dr. Gutierrez. 8. Endocrinology = Dr Boateng 9. Discharge planning Reynold Burton MD Oct 21, 2019 14:04
--- NOTE | 2019-10-21 14:40 | NUR ---
CHARGE NURSE NOTE: Pt is unsteady, able to ambulate with walker under supervision. Spoke with . He wants to order Physical therapy evaluation and treatment and change pt's discharge date to 10/24/19.
--- NOTE | 2019-10-21 15:36 | Pulmonology Progress Note ---
Assessment/Plan Problems: (1) Fever (2) UTI (urinary tract infection) (3) Renal failure (4) Uncontrolled diabetes mellitus Assessment/Plan improving on abx check cultures again abx by ID check electrolytes BS better controlled Subjective ROS Limited/Unobtainable: No Constitutional: Reports: no symptoms HEENT: Repors: no symptoms Allergies: Coded Allergies: No Known Allergies (Unverified , 10/12/19) Objective Last 24 Hour Vital Signs Date Time Temp Pulse Resp B/P (MAP) Pulse Ox O2 Delivery O2 Flow Rate FiO2 10/21/19 12:00 97.8 89 17 119/79 (92) 96 10/21/19 09:51 Room Air 10/21/19 09:31 87 107/70 (82) 10/21/19 09:00 107/70 10/21/19 08:00 98.6 85 18 114/63 (80) 94 10/21/19 04:00 98.2 69 20 109/56 (73) 94 10/21/19 00:00 97.5 80 20 103/65 (78) 95 10/20/19 21:00 Room Air 10/20/19 20:00 97.3 75 18 105/66 (79) 98 10/20/19 15:42 97.5 82 18 105/66 (79) 96 Intake and Output 10/20/19 10/21/19 19:00 07:00 Intake Total 1313 ml 313.6 ml Balance 1313 ml 313.6 ml Intake Oral 200 ml IV Total 113 ml 113.6 ml Other 1200 ml # Voids 1 Objective General Appearance: WD/WN HEENT: normocephalic, atraumatic Respiratory/Chest: chest wall non-tender, lungs clear Breasts: no masses Cardiovascular: normal peripheral pulses Abdomen: normal bowel sounds, soft, non tender Genitourinary: normal external genitalia Extremities: no cyanosis 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 Lymphatic: no neck adenopathy Microbiology Date/Time Source Procedure Growth Status 10/19/19 10:00 Blood Blood Culture - Preliminary NO GROWTH AFTER 24 HOURS Resulted 10/19/19 09:50 Blood Blood Culture - Preliminary NO GROWTH AFTER 24 HOURS Resulted Current Medications Medications (Trade) Dose Ordered Sig/Kelly Route PRN Reason Start Time Stop Time Status Last Admin Dose Admin Acetaminophen (Tylenol) 650 mg Q6H PRN ORAL Mild Pain/Temp > 100.5 10/14/19 06:00 11/13/19 05:59 10/19/19 00:35 Amikacin Protocol (Amikacin pharmacy to dose) 1 ea DAILY PRN MISC Per rx protocol 10/17/19 10:15 11/16/19 10:14 Amikacin Sulfate 900 mg/Sodium Chloride 113.6 ml @ 113.6 mls/ hr Q12H IV 10/20/19 00:00 10/27/19 00:00 10/21/19 12:10 Benazepril HCl (Lotensin) 10 mg DAILY ORAL 10/13/19 09:00 11/12/19 08:59 10/20/19 08:11 Dextrose (Dextrose 50%) 25 ml Q30M PRN IV Hypoglycemia 10/13/19 04:00 11/12/19 03:59 Dextrose (Dextrose 50%) 50 ml Q30M PRN IV Hypoglycemia 10/13/19 04:00 11/12/19 03:59 Divalproex Sodium (Depakote) 250 mg BEDTIME ORAL 10/18/19 21:00 11/17/19 20:59 10/20/19 22:38 Divalproex Sodium (Depakote) 1,500 mg BEDTIME ORAL 10/18/19 21:00 11/17/19 20:59 10/20/19 22:38 Heparin Sodium (Porcine) (Heparin 5000 units/ml) 5,000 units EVERY 12 HOURS SUBQ 10/13/19 09:00 11/12/19 08:59 10/21/19 09:42 Insulin Aspart (NovoLOG) BEFORE MEALS AND HS SUBQ 10/13/19 06:30 11/12/19 06:29 10/20/19 22:39 Levothyroxine Sodium (Synthroid) 75 mcg ACBREAKFAST ORAL 10/13/19 06:30 11/12/19 06:29 10/21/19 06:12 Metformin HCl (Glucophage) 1,000 mg BID ORAL 10/16/19 09:00 11/12/19 06:29 10/21/19 09:38 Nateglinide (Starlix) 120 mg TIAC ORAL 10/18/19 16:30 11/13/19 16:29 10/21/19 12:10 Pioglitazone HCl (Actos) 15 mg DAILY ORAL 10/13/19 09:00 11/12/19 08:59 10/21/19 09:38 Pravastatin Sodium (Pravachol) 20 mg BEDTIME ORAL 10/13/19 21:00 11/12/19 20:59 10/20/19 22:37 Sitagliptin Phosphate (Januvia) 100 mg ACBREAKFAST ORAL 10/14/19 13:45 11/13/19 13:44 10/21/19 06:12 Thomas Velarde MD Oct 21, 2019 15:36
--- NOTE | 2019-10-21 18:30 | NUR ---
NURSE NOTES: Patient resting,bed alarm on.
--- NOTE | 2019-10-21 19:49 | NUR ---
HAND-OFF: Report given to Radha MALCOLM.
--- NOTE | 2019-10-21 20:00 | NUR ---
NURSE NOTES: Patient received in bed, awake, talking, disoriented, but able to follow commands. Appears in no acute distress at this time. IV intact. Bed locked in low position, bed alarm on. Will continue to monitor.
[2019-10-21] MEDS: Depakote 500mg tab ORAL SCH (21:15)
[2019-10-22] VITALS: BP 130/78
[2019-10-22 04:00] VITALS: BP 121/68
[2019-10-22] MEDS: NovoLOG Insulin Flexpen SUBQ SCH ×4 (06:04→20:42)
--- NOTE | 2019-10-22 07:17 | NUR ---
HAND-OFF: Report given to Gillian MALCOLM.
--- NOTE | 2019-10-22 07:41 | NUR ---
NURSE NOTES: Patient awake and alert to name respirations unlabored,patient eating breakfast.Bed alarm on,call light within reach.
--- NOTE | 2019-10-22 07:44 | NUR ---
NURSE NOTES: Patient awake and alert to name,respirations unlabored.Breakfast at bedside will assist patient.Bed alarm is on.
[2019-10-22 08:17] VITALS: BP 116/81
[2019-10-22] MEDS: metFORMIN 500mg tab ORAL SCH ×2 (08:25→18:06)
[2019-10-22] MEDS: Heparin 5000 units/ml inj SUBQ SCH ×2 (08:31→20:42)
[2019-10-22] MEDS: Benazepril 10mg tab ORAL SCH (09:00)
[2019-10-22 12:00] VITALS: BP 150/85
[2019-10-22] MEDS: Amikacin 900 MG in NS 110 ML IV SCH ×2 (12:41→23:29)
--- NOTE | 2019-10-22 14:12 | Internal Med Progress Note ---
Subjective Date of Service: Oct 22, 2019 Physician Name Reynold Burton Attending Physician Ankush Hoffman MD Current Medications Medications (Trade) Dose Ordered Sig/Kelly Route PRN Reason Start Time Stop Time Status Last Admin Dose Admin Acetaminophen (Tylenol) 650 mg Q6H PRN ORAL Mild Pain/Temp > 100.5 10/14/19 06:00 11/13/19 05:59 10/19/19 00:35 Amikacin Protocol (Amikacin pharmacy to dose) 1 ea DAILY PRN MISC Per rx protocol 10/17/19 10:15 11/16/19 10:14 Amikacin Sulfate 900 mg/Sodium Chloride 113.6 ml @ 113.6 mls/ hr Q12H IV 10/20/19 00:00 10/27/19 00:00 10/22/19 12:41 Benazepril HCl (Lotensin) 10 mg DAILY ORAL 10/13/19 09:00 11/12/19 08:59 10/20/19 08:11 Dextrose (Dextrose 50%) 25 ml Q30M PRN IV Hypoglycemia 10/13/19 04:00 11/12/19 03:59 Dextrose (Dextrose 50%) 50 ml Q30M PRN IV Hypoglycemia 10/13/19 04:00 11/12/19 03:59 Divalproex Sodium (Depakote) 250 mg BEDTIME ORAL 10/18/19 21:00 11/17/19 20:59 10/21/19 21:15 Divalproex Sodium (Depakote) 1,500 mg BEDTIME ORAL 10/18/19 21:00 11/17/19 20:59 10/21/19 21:15 Heparin Sodium (Porcine) (Heparin 5000 units/ml) 5,000 units EVERY 12 HOURS SUBQ 10/13/19 09:00 11/12/19 08:59 10/22/19 08:31 Insulin Aspart (NovoLOG) BEFORE MEALS AND HS SUBQ 10/13/19 06:30 11/12/19 06:29 10/22/19 12:29 Levothyroxine Sodium (Synthroid) 75 mcg ACBREAKFAST ORAL 10/13/19 06:30 11/12/19 06:29 10/22/19 06:00 Metformin HCl (Glucophage) 1,000 mg BID ORAL 10/16/19 09:00 11/12/19 06:29 10/22/19 08:25 Nateglinide (Starlix) 120 mg TIAC ORAL 10/18/19 16:30 11/13/19 16:29 10/22/19 12:34 Pioglitazone HCl (Actos) 15 mg DAILY ORAL 10/13/19 09:00 11/12/19 08:59 10/22/19 08:25 Pravastatin Sodium (Pravachol) 20 mg BEDTIME ORAL 10/13/19 21:00 11/12/19 20:59 10/21/19 21:15 Sitagliptin Phosphate (Januvia) 100 mg ACBREAKFAST ORAL 10/14/19 13:45 11/13/19 13:44 10/22/19 06:00 Allergies: Coded Allergies: No Known Allergies (Unverified , 10/12/19) ROS Limited/Unobtainable: No Constitutional: Reports: no symptoms HEENT: Reports: no symptoms Cardiovascular: Reports: no symptoms Respiratory: Reports: no symptoms Gastrointestinal/Abdominal: Reports: no symptoms Genitourinary: Reports: no symptoms Neurologic/Psychiatric: Reports: no symptoms Subjective 54 YO M admitted with uncontrolled diabetes, now UTI. Cover for Int Med-Dr Hoffman Objective Last Vital Signs Date Time Temp Pulse Resp B/P (MAP) Pulse Ox O2 Delivery O2 Flow Rate FiO2 10/22/19 12:00 97.7 113 19 150/85 (106) 99 10/22/19 09:00 Room Air Intake and Output 10/21/19 10/22/19 19:00 07:00 Intake Total 500 ml 713.6 ml Balance 500 ml 713.6 ml Intake Oral 600 ml IV Total 113.6 ml Other 500 ml # Voids 3 Objective PHYSICAL EXAMINATION: GENERAL: The patient is awake and responsive, in no acute distress. HEAD AND NECK: Pupils are equal and reactive to light. Extraocular muscles intact. Neck was supple. No JVD. LUNGS: Good air entry with no wheezing or rales. HEART: S1, S2. Distant heart sounds. No gallops. ABDOMEN: Soft, nondistended, and nontender. Mildly obese. EXTREMITIES: No cyanosis, clubbing, or edema NEUROLOGIC: Cranial nerves II through XII grossly grossly intact. Motor is 5/5 in all extremities. Gait was not assessed due to the patient's status. RECTAL: Refused and deferred. GENITOURINARY: Refused and deferred. PSYCHIATRIC: Mood and affect is calm. Assessment/Plan Assessment/Plan ASSESSMENT: 1. Uncontrolled diabetes type 2, possible due to underlying infection such as urinary tract infection. 2. urinary tract infection=ESBL E. Coli 3. Dehydration. 4. Acute kidney injury on chronic renal insufficiency. 5. Proteinuria. 6. Developmental delay. 7. Hypothyroidism. 8. Seizure disorder. 9. Morbid obesity. PLAN: 1. Admit the patient to the medical floor. 2. Start the patient on IV hydration. 3. Accu-Chek with sliding scale. 4. Monitor laboratory. 5. antibiotic=Amikacin per ID 6. DVT prophylaxis with heparin subcutaneous. 7. ID=Dr. Gutierrez. 8. Endocrinology = Dr Boateng 9. Discharge held-patient must be ambulatory to return to board and care Reynold Burton MD Oct 22, 2019 14:12
--- NOTE | 2019-10-22 14:58 | NUR ---
PT Note PT lynne completed, treatment initiated. Patient has muscle weakness and decreased postural stability, requiring assist in mobility and gait. patient needs PT to increase his muscle strength and balance to improve his functional mobility to prior level of function and enable him to return to his long term. Addendum: 10/22/19 at 1458 by SANDY HARDIN PT Amended: Links added.
--- NOTE | 2019-10-22 15:06 | Pulmonology Progress Note ---
Assessment/Plan Problems: (1) Fever (2) UTI (urinary tract infection) (3) Renal failure (4) Uncontrolled diabetes mellitus Assessment/Plan improving on abx check cultures again abx by ID check electrolytes BS better controlled Subjective ROS Limited/Unobtainable: No Constitutional: Reports: no symptoms HEENT: Repors: no symptoms Respiratory: Reports: no symptoms Allergies: Coded Allergies: No Known Allergies (Unverified , 10/12/19) Objective Last 24 Hour Vital Signs Date Time Temp Pulse Resp B/P (MAP) Pulse Ox O2 Delivery O2 Flow Rate FiO2 10/22/19 12:00 97.7 113 19 150/85 (106) 99 10/22/19 09:00 Room Air 10/22/19 08:17 98.3 87 18 116/81 (93) 97 10/22/19 04:00 98.0 73 21 121/68 (85) 97 10/22/19 00:00 97.5 78 20 130/78 (95) 96 10/21/19 21:00 Room Air 10/21/19 20:00 97.1 86 20 130/86 (101) 98 10/21/19 16:00 98.2 79 18 120/78 (92) 96 Intake and Output 10/21/19 10/22/19 19:00 07:00 Intake Total 500 ml 713.6 ml Balance 500 ml 713.6 ml Intake Oral 600 ml IV Total 113.6 ml Other 500 ml # Voids 3 Objective General Appearance: WD/WN HEENT: normocephalic, atraumatic Respiratory/Chest: chest wall non-tender, lungs clear Breasts: no masses Cardiovascular: normal peripheral pulses Abdomen: normal bowel sounds, soft, non tender Genitourinary: normal external genitalia Extremities: no cyanosis 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 Lymphatic: no neck adenopathy Current Medications Medications (Trade) Dose Ordered Sig/Kelly Route PRN Reason Start Time Stop Time Status Last Admin Dose Admin Acetaminophen (Tylenol) 650 mg Q6H PRN ORAL Mild Pain/Temp > 100.5 10/14/19 06:00 11/13/19 05:59 10/19/19 00:35 Amikacin Protocol (Amikacin pharmacy to dose) 1 ea DAILY PRN MISC Per rx protocol 10/17/19 10:15 11/16/19 10:14 Amikacin Sulfate 900 mg/Sodium Chloride 113.6 ml @ 113.6 mls/ hr Q12H IV 10/20/19 00:00 10/27/19 00:00 10/22/19 12:41 Benazepril HCl (Lotensin) 10 mg DAILY ORAL 10/13/19 09:00 11/12/19 08:59 10/20/19 08:11 Dextrose (Dextrose 50%) 25 ml Q30M PRN IV Hypoglycemia 10/13/19 04:00 11/12/19 03:59 Dextrose (Dextrose 50%) 50 ml Q30M PRN IV Hypoglycemia 10/13/19 04:00 11/12/19 03:59 Divalproex Sodium (Depakote) 250 mg BEDTIME ORAL 10/18/19 21:00 11/17/19 20:59 10/21/19 21:15 Divalproex Sodium (Depakote) 1,500 mg BEDTIME ORAL 10/18/19 21:00 11/17/19 20:59 10/21/19 21:15 Heparin Sodium (Porcine) (Heparin 5000 units/ml) 5,000 units EVERY 12 HOURS SUBQ 10/13/19 09:00 11/12/19 08:59 10/22/19 08:31 Insulin Aspart (NovoLOG) BEFORE MEALS AND HS SUBQ 10/13/19 06:30 11/12/19 06:29 10/22/19 12:29 Levothyroxine Sodium (Synthroid) 75 mcg ACBREAKFAST ORAL 10/13/19 06:30 11/12/19 06:29 10/22/19 06:00 Metformin HCl (Glucophage) 1,000 mg BID ORAL 10/16/19 09:00 11/12/19 06:29 10/22/19 08:25 Nateglinide (Starlix) 120 mg TIAC ORAL 10/18/19 16:30 11/13/19 16:29 10/22/19 12:34 Pioglitazone HCl (Actos) 15 mg DAILY ORAL 10/13/19 09:00 11/12/19 08:59 10/22/19 08:25 Pravastatin Sodium (Pravachol) 20 mg BEDTIME ORAL 10/13/19 21:00 11/12/19 20:59 10/21/19 21:15 Sitagliptin Phosphate (Januvia) 100 mg ACBREAKFAST ORAL 10/14/19 13:45 11/13/19 13:44 10/22/19 06:00 Thomas Velarde MD Oct 22, 2019 15:06
[2019-10-22 16:00] VITALS: BP 107/74
--- NOTE | 2019-10-22 18:30 | NUR ---
NURSE NOTES: Patient resting,patient sat up in chair today and tolerated Patient resting in bed bed alarm is on,call light within reach.
--- NOTE | 2019-10-22 19:13 | NUR ---
HAND-OFF: Report given to Radha MALCOLM.
[2019-10-22 20:00] VITALS: BP 154/78
--- NOTE | 2019-10-22 20:00 | NUR ---
NURSE NOTES: Patient received in bed, sitting up. No acute distress at this time. Will continue to monitor.
[2019-10-22] MEDS: Depakote 500mg tab ORAL SCH (20:36)
[2019-10-23] VITALS: BP 114/85
[2019-10-23 04:00] VITALS: BP 125/75
[2019-10-23] MEDS: NovoLOG Insulin Flexpen SUBQ SCH ×4 (06:06→21:00)
--- NOTE | 2019-10-23 07:37 | NUR ---
HAND-OFF: Report given to Trip MALCOLM.
--- NOTE | 2019-10-23 07:39 | NUR ---
NURSE NOTES: Received pt in bed, AAO x 2, talkative. Room air. IV on L hand 22g noted. Side rails padded. Call light within reach. Bed in the lowest, locked, and alarm on. Will continue to monitor.
[2019-10-23 08:00] VITALS: BP 163/81
[2019-10-23 08:29] LABS: BASOPHILS % (AUTO) 0.7 % (0.0-2.0); HEMATOCRIT 37.9 % (42.0-52.0); HEMOGLOBIN 12.9 G/DL (14.2-18.0); LYMPHOCYTES % (AUTO) 35.4 % (20.0-45.0); MEAN CORPUSCULAR VOLUME 89 FL (80-99); MONOCYTES % (AUTO) 4.5 % (1.0-10.0); NEUTROPHILS % (AUTO) 59.3 % (45.0-75.0); PLATELET COUNT 315 K/UL (150-450); RED BLOOD COUNT 4.27 M/UL (4.70-6.10); RED CELL DISTRIBUTION WIDTH 11.9 % (11.6-14.8); WHITE BLOOD COUNT 7.7 K/UL (4.8-10.8)
[2019-10-23] MEDS: Heparin 5000 units/ml inj SUBQ SCH ×2 (08:49→22:48)
[2019-10-23] MEDS: metFORMIN 500mg tab ORAL SCH ×2 (08:49→17:08)
[2019-10-23] MEDS: Benazepril 10mg tab ORAL SCH (08:49)
[2019-10-23 08:58] LABS: ANION GAP 8 mmol/L (5-15); BLOOD UREA NITROGEN 21 mg/dL (7-18); CALCIUM 8.6 MG/DL (8.5-10.1); CARBON DIOXIDE 25 MMOL/L (21-32); CHLORIDE 104 MMOL/L (98-107); CREATININE 1.1 MG/DL (0.55-1.30); POTASSIUM 4.4 MMOL/L (3.5-5.1); SODIUM 137 MMOL/L (136-145)
[2019-10-23] MEDS: Amikacin 900 MG in NS 110 ML IV SCH (11:48)
[2019-10-23 12:00] VITALS: BP 105/70
--- NOTE | 2019-10-23 13:16 | Infectious Diseases Prog Note ---
Assessment/Plan Assessment/Plan Assessment: SEpsis,SP Fever, recurrent; SP Leukocytosis, recurrent- SP UTI -u/a wbc 2-4, nit +, leuk +1; ucx >100k ESBL E.coli (S Zosyn, Ertapenem, Amikacin, bactrim) -CXR: No acute process -10/13 Bcx NTD -influenza sc neg Hyperglycemia; improving OCTAVIA, SP seizure disorder developmental delay Plan: Continue IV AMikacin #7/ for ESBL E.coli UTI in view of fever and leukocytosis (there is interaction between carbapenem and valproic acid) -ok to discharge on PO Bactrim DS 1 tab bid -10/17 SP Zosyn #4 -10/14 SP Ceftriaxone #2 -f/u cx -Monitor CBC/CMP, temperatures -aspiration precautions -If T >101, repeat 2 sets of Bcx Thank you for this consultation. Will continue to follow along with you. Subjective Allergies: Coded Allergies: No Known Allergies (Unverified , 10/12/19) Subjective afebrile no leukocytosis discharge planning Objective Vital Signs Last 24 Hour Vital Signs Date Time Temp Pulse Resp B/P (MAP) Pulse Ox O2 Delivery O2 Flow Rate FiO2 10/23/19 12:00 97.3 87 18 105/70 (82) 95 10/23/19 08:49 163/81 10/23/19 08:02 Room Air 10/23/19 08:00 97.7 99 17 163/81 (108) 96 10/23/19 04:00 97.2 76 20 125/75 (92) 98 10/23/19 00:00 97.3 79 20 114/85 (95) 95 10/22/19 21:00 Room Air 10/22/19 20:00 98.1 92 20 154/78 (103) 96 10/22/19 16:00 98.2 92 18 107/74 (85) 95 Height (Feet): 5 Height (Inches): 5.00 Weight (Pounds): 169 Objective GENERAL: The patient is awake and responsive, in no acute distress. HEAD AND NECK: Pupils are equal and reactive to light. Extraocular muscles intact. Neck was supple. No JVD. LUNGS: Good air entry with no wheezing or rales. HEART: S1, S2. Distant heart sounds. No gallops. ABDOMEN: Soft, nondistended, and nontender. Mildly obese. EXTREMITIES: No cyanosis, clubbing, or edema Laboratory Tests Test 10/23/19 07:37 White Blood Count 7.7 K/UL (4.8-10.8) Red Blood Count 4.27 M/UL (4.70-6.10) L Hemoglobin 12.9 G/DL (14.2-18.0) L Hematocrit 37.9 % (42.0-52.0) L Mean Corpuscular Volume 89 FL (80-99) Mean Corpuscular Hemoglobin 30.1 PG (27.0-31.0) Mean Corpuscular Hemoglobin Concent 33.9 G/DL (32.0-36.0) Red Cell Distribution Width 11.9 % (11.6-14.8) Platelet Count 315 K/UL (150-450) Mean Platelet Volume 5.3 FL (6.5-10.1) L Neutrophils (%) (Auto) 59.3 % (45.0-75.0) Lymphocytes (%) (Auto) 35.4 % (20.0-45.0) Monocytes (%) (Auto) 4.5 % (1.0-10.0) Eosinophils (%) (Auto) 0.0 % (0.0-3.0) Basophils (%) (Auto) 0.7 % (0.0-2.0) Sodium Level 137 MMOL/L (136-145) Potassium Level 4.4 MMOL/L (3.5-5.1) Chloride Level 104 MMOL/L (98-107) Carbon Dioxide Level 25 MMOL/L (21-32) Anion Gap 8 mmol/L (5-15) Blood Urea Nitrogen 21 mg/dL (7-18) H Creatinine 1.1 MG/DL (0.55-1.30) Estimat Glomerular Filtration Rate > 60 mL/min (>60) Glucose Level 105 MG/DL (74-106) Calcium Level 8.6 MG/DL (8.5-10.1) Current Medications Medications (Trade) Dose Ordered Sig/Kelly Route PRN Reason Start Time Stop Time Status Last Admin Dose Admin Acetaminophen (Tylenol) 650 mg Q6H PRN ORAL Mild Pain/Temp > 100.5 10/14/19 06:00 11/13/19 05:59 10/19/19 00:35 Amikacin Protocol (Amikacin pharmacy to dose) 1 ea DAILY PRN MISC Per rx protocol 10/17/19 10:15 11/16/19 10:14 Amikacin Sulfate 900 mg/Sodium Chloride 113.6 ml @ 113.6 mls/ hr Q12H IV 10/20/19 00:00 10/27/19 00:00 10/23/19 11:48 Benazepril HCl (Lotensin) 10 mg DAILY ORAL 10/13/19 09:00 11/12/19 08:59 10/23/19 08:49 Dextrose (Dextrose 50%) 25 ml Q30M PRN IV Hypoglycemia 10/13/19 04:00 11/12/19 03:59 Dextrose (Dextrose 50%) 50 ml Q30M PRN IV Hypoglycemia 10/13/19 04:00 11/12/19 03:59 Divalproex Sodium (Depakote) 250 mg BEDTIME ORAL 10/18/19 21:00 11/17/19 20:59 10/22/19 20:36 Divalproex Sodium (Depakote) 1,500 mg BEDTIME ORAL 10/18/19 21:00 11/17/19 20:59 10/22/19 20:36 Heparin Sodium (Porcine) (Heparin 5000 units/ml) 5,000 units EVERY 12 HOURS SUBQ 10/13/19 09:00 11/12/19 08:59 10/23/19 08:49 Insulin Aspart (NovoLOG) BEFORE MEALS AND HS SUBQ 10/13/19 06:30 11/12/19 06:29 10/22/19 20:42 Levothyroxine Sodium (Synthroid) 75 mcg ACBREAKFAST ORAL 10/13/19 06:30 11/12/19 06:29 10/23/19 06:06 Metformin HCl (Glucophage) 1,000 mg BID ORAL 10/16/19 09:00 11/12/19 06:29 10/23/19 08:49 Nateglinide (Starlix) 120 mg TIAC ORAL 10/18/19 16:30 11/13/19 16:29 10/23/19 11:44 Pioglitazone HCl (Actos) 30 mg DAILY ORAL 10/23/19 09:00 11/12/19 08:59 10/23/19 08:48 Pravastatin Sodium (Pravachol) 20 mg BEDTIME ORAL 10/13/19 21:00 11/12/19 20:59 10/22/19 20:37 Sitagliptin Phosphate (Januvia) 100 mg ACBREAKFAST ORAL 10/14/19 13:45 11/13/19 13:44 10/23/19 06:06 Roxana Gutierrez M.D. Oct 23, 2019 13:16
--- NOTE | 2019-10-23 13:39 | Pulmonology Progress Note ---
Assessment/Plan Problems: (1) Fever (2) UTI (urinary tract infection) (3) Renal failure (4) Uncontrolled diabetes mellitus Assessment/Plan improving on abx check cultures again abx by ID check electrolytes BS better controlled dc planning Subjective ROS Limited/Unobtainable: No Constitutional: Reports: no symptoms HEENT: Repors: no symptoms Respiratory: Reports: no symptoms Allergies: Coded Allergies: No Known Allergies (Unverified , 10/12/19) Objective Last 24 Hour Vital Signs Date Time Temp Pulse Resp B/P (MAP) Pulse Ox O2 Delivery O2 Flow Rate FiO2 10/23/19 12:00 97.3 87 18 105/70 (82) 95 10/23/19 08:49 163/81 10/23/19 08:02 Room Air 10/23/19 08:00 97.7 99 17 163/81 (108) 96 10/23/19 04:00 97.2 76 20 125/75 (92) 98 10/23/19 00:00 97.3 79 20 114/85 (95) 95 10/22/19 21:00 Room Air 10/22/19 20:00 98.1 92 20 154/78 (103) 96 10/22/19 16:00 98.2 92 18 107/74 (85) 95 Intake and Output 10/22/19 10/23/19 19:00 07:00 Intake Total 480 ml 313.6 ml Balance 480 ml 313.6 ml Intake Oral 480 ml 200 ml IV Total 113.6 ml # Voids 1 2 Objective General Appearance: WD/WN HEENT: normocephalic, atraumatic Respiratory/Chest: chest wall non-tender, lungs clear Breasts: no masses Cardiovascular: normal peripheral pulses Abdomen: normal bowel sounds, soft, non tender Genitourinary: normal external genitalia Extremities: no cyanosis Neurologic/Psychiatric: mandrel puller II-XII grossly normal Lymphatic: no neck adenopathy Laboratory Tests 10/23/19 07:37: White Blood Count 7.7, Red Blood Count 4.27L, Hemoglobin 12.9L, Hematocrit 37.9L , Mean Corpuscular Volume 89, Mean Corpuscular Hemoglobin 30.1, Mean Corpuscular Hemoglobin Concent 33.9, Red Cell Distribution Width 11.9, Platelet Count 315, Mean Platelet Volume 5.3L, Neutrophils (%) (Auto) 59.3, Lymphocytes ( %) (Auto) 35.4, Monocytes (%) (Auto) 4.5, Eosinophils (%) (Auto) 0.0, Basophils (%) (Auto) 0.7, Sodium Level 137, Potassium Level 4.4, Chloride Level 104, Carbon Dioxide Level 25, Anion Gap 8, Blood Urea Nitrogen 21H, Creatinine 1.1, Estimat Glomerular Filtration Rate > 60, Glucose Level 105, Calcium Level 8.6 Current Medications Medications (Trade) Dose Ordered Sig/Kelly Route PRN Reason Start Time Stop Time Status Last Admin Dose Admin Acetaminophen (Tylenol) 650 mg Q6H PRN ORAL Mild Pain/Temp > 100.5 10/14/19 06:00 11/13/19 05:59 10/19/19 00:35 Amikacin Protocol (Amikacin pharmacy to dose) 1 ea DAILY PRN MISC Per rx protocol 10/17/19 10:15 11/16/19 10:14 Amikacin Sulfate 900 mg/Sodium Chloride 113.6 ml @ 113.6 mls/ hr Q12H IV 10/20/19 00:00 10/27/19 00:00 10/23/19 11:48 Benazepril HCl (Lotensin) 10 mg DAILY ORAL 10/13/19 09:00 11/12/19 08:59 10/23/19 08:49 Dextrose (Dextrose 50%) 25 ml Q30M PRN IV Hypoglycemia 10/13/19 04:00 11/12/19 03:59 Dextrose (Dextrose 50%) 50 ml Q30M PRN IV Hypoglycemia 10/13/19 04:00 11/12/19 03:59 Divalproex Sodium (Depakote) 250 mg BEDTIME ORAL 10/18/19 21:00 11/17/19 20:59 10/22/19 20:36 Divalproex Sodium (Depakote) 1,500 mg BEDTIME ORAL 10/18/19 21:00 11/17/19 20:59 10/22/19 20:36 Heparin Sodium (Porcine) (Heparin 5000 units/ml) 5,000 units EVERY 12 HOURS SUBQ 10/13/19 09:00 11/12/19 08:59 10/23/19 08:49 Insulin Aspart (NovoLOG) BEFORE MEALS AND HS SUBQ 10/13/19 06:30 11/12/19 06:29 10/22/19 20:42 Levothyroxine Sodium (Synthroid) 75 mcg ACBREAKFAST ORAL 10/13/19 06:30 11/12/19 06:29 10/23/19 06:06 Metformin HCl (Glucophage) 1,000 mg BID ORAL 10/16/19 09:00 11/12/19 06:29 10/23/19 08:49 Nateglinide (Starlix) 120 mg TIAC ORAL 10/18/19 16:30 11/13/19 16:29 10/23/19 11:44 Pioglitazone HCl (Actos) 30 mg DAILY ORAL 10/23/19 09:00 11/12/19 08:59 10/23/19 08:48 Pravastatin Sodium (Pravachol) 20 mg BEDTIME ORAL 10/13/19 21:00 11/12/19 20:59 10/22/19 20:37 Sitagliptin Phosphate (Januvia) 100 mg ACBREAKFAST ORAL 10/14/19 13:45 11/13/19 13:44 10/23/19 06:06 Thomas Velarde MD Oct 23, 2019 13:39
--- NOTE | 2019-10-23 15:42 | NUR ---
DISCHARGE PLANNED: PATIENT IS [facility] WITH JOSE ALFREDO CAMEJO T: [phone] FOR NURSE TO NURSE REPORT [facility] PICKUP TIME 5PM
[2019-10-23 16:00] VITALS: BP 110/72
--- NOTE | 2019-10-23 18:16 | NUR ---
NURSE NOTES: While Venice Lopez from [facility] came to roller picker the patient, patient started having seizure with right sided face twitches that lasted for [address] Velarde and got order to cancel the discharge.
--- NOTE | 2019-10-23 18:17 | General Progress Note ---
Assessment/Plan Problem List: (1) Hypothyroid ICD Codes: E03.9 - Hypothyroidism, unspecified SNOMED: 81254584 (2) Hyperglycemia ICD Codes: R73.9 - Hyperglycemia, unspecified SNOMED: 42453516 (3) Uncontrolled diabetes mellitus ICD Codes: E11.65 - Type 2 diabetes mellitus with hyperglycemia SNOMED: 09511768, 583956044 Assessment/Plan: continue Starlix 120 mg ac tid continue Januvia 100 mg daily continue Actos 15 mg daily continue Metformin 1000 mg bid continue NISS ac / hs continue Levothyroxine 75 mcg daily Subjective Allergies: Coded Allergies: No Known Allergies (Unverified , 10/12/19) All Systems: reviewed and negative except above Subjective events noted awake in a good spirit Item Value Date Time Bedside Blood Glucose 241 mg/dl H 10/23/19 1709 Bedside Blood Glucose 128 mg/dl H 10/23/19 1130 Bedside Blood Glucose 93 mg/dl 10/23/19 0619 Bedside Blood Glucose 161 mg/dl H 10/22/192051 Objective Last 24 Hour Vital Signs Date Time Temp Pulse Resp B/P (MAP) Pulse Ox O2 Delivery O2 Flow Rate FiO2 10/23/19 16:00 97.9 76 18 110/72 (85) 93 10/23/19 12:00 97.3 87 18 105/70 (82) 95 10/23/19 08:49 163/81 10/23/19 08:02 Room Air 10/23/19 08:00 97.7 99 17 163/81 (108) 96 10/23/19 04:00 97.2 76 20 125/75 (92) 98 10/23/19 00:00 97.3 79 20 114/85 (95) 95 10/22/19 21:00 Room Air 10/22/19 20:00 98.1 92 20 154/78 (103) 96 Intake and Output 10/22/19 10/23/19 19:00 07:00 Intake Total 480 ml 313.6 ml Balance 480 ml 313.6 ml Intake Oral 480 ml 200 ml IV Total 113.6 ml # Voids 1 2 Laboratory Tests 10/23/19 07:37: White Blood Count 7.7, Red Blood Count 4.27L, Hemoglobin 12.9L, Hematocrit 37.9L , Mean Corpuscular Volume 89, Mean Corpuscular Hemoglobin 30.1, Mean Corpuscular Hemoglobin Concent 33.9, Red Cell Distribution Width 11.9, Platelet Count 315, Mean Platelet Volume 5.3L, Neutrophils (%) (Auto) 59.3, Lymphocytes ( %) (Auto) 35.4, Monocytes (%) (Auto) 4.5, Eosinophils (%) (Auto) 0.0, Basophils (%) (Auto) 0.7, Sodium Level 137, Potassium Level 4.4, Chloride Level 104, Carbon Dioxide Level 25, Anion Gap 8, Blood Urea Nitrogen 21H, Creatinine 1.1, Estimat Glomerular Filtration Rate > 60, Glucose Level 105, Calcium Level 8.6 Height (Feet): 5 Height (Inches): 5.00 Weight (Pounds): 169 General Appearance: no apparent distress Neck: normal alignment Cardiovascular: normal rate Respiratory/Chest: lungs clear Abdomen: normal bowel sounds Objective Current Medications Medications (Trade) Dose Ordered Sig/Kelly Route PRN Reason Start Time Stop Time Status Last Admin Dose Admin Acetaminophen (Tylenol) 650 mg Q6H PRN ORAL Mild Pain/Temp > 100.5 10/14/19 06:00 11/13/19 05:59 10/19/19 00:35 Amikacin Protocol (Amikacin pharmacy to dose) 1 ea DAILY PRN MISC Per rx protocol 10/17/19 10:15 11/16/19 10:14 Amikacin Sulfate 900 mg/Sodium Chloride 113.6 ml @ 113.6 mls/ hr Q12H IV 10/20/19 00:00 10/27/19 00:00 10/23/19 11:48 Benazepril HCl (Lotensin) 10 mg DAILY ORAL 10/13/19 09:00 11/12/19 08:59 10/23/19 08:49 Dextrose (Dextrose 50%) 25 ml Q30M PRN IV Hypoglycemia 10/13/19 04:00 11/12/19 03:59 Dextrose (Dextrose 50%) 50 ml Q30M PRN IV Hypoglycemia 10/13/19 04:00 11/12/19 03:59 Divalproex Sodium (Depakote) 250 mg BEDTIME ORAL 10/18/19 21:00 11/17/19 20:59 10/22/19 20:36 Divalproex Sodium (Depakote) 1,500 mg BEDTIME ORAL 10/18/19 21:00 11/17/19 20:59 10/22/19 20:36 Heparin Sodium (Porcine) (Heparin 5000 units/ml) 5,000 units EVERY 12 HOURS SUBQ 10/13/19 09:00 11/12/19 08:59 10/23/19 08:49 Insulin Aspart (NovoLOG) BEFORE MEALS AND HS SUBQ 10/13/19 06:30 11/12/19 06:29 10/23/19 17:09 Levothyroxine Sodium (Synthroid) 75 mcg ACBREAKFAST ORAL 10/13/19 06:30 11/12/19 06:29 10/23/19 06:06 Metformin HCl (Glucophage) 1,000 mg BID ORAL 10/16/19 09:00 11/12/19 06:29 10/23/19 17:08 Nateglinide (Starlix) 120 mg TIAC ORAL 10/18/19 16:30 11/13/19 16:29 10/23/19 17:08 Pioglitazone HCl (Actos) 30 mg DAILY ORAL 10/23/19 09:00 11/12/19 08:59 10/23/19 08:48 Pravastatin Sodium (Pravachol) 20 mg BEDTIME ORAL 10/13/19 21:00 11/12/19 20:59 10/22/19 20:37 Sitagliptin Phosphate (Januvia) 100 mg ACBREAKFAST ORAL 10/14/19 13:45 11/13/19 13:44 10/23/19 06:06 Prosper Boateng MD Oct 23, 2019 18:17
--- NOTE | 2019-10-23 18:28 | Internal Med Progress Note ---
Subjective Date of Service: Oct 23, 2019 Physician Name Reynold Burton Attending Physician Ankush Hoffman MD Current Medications Medications (Trade) Dose Ordered Sig/Kelly Route PRN Reason Start Time Stop Time Status Last Admin Dose Admin Acetaminophen (Tylenol) 650 mg Q6H PRN ORAL Mild Pain/Temp > 100.5 10/14/19 06:00 11/13/19 05:59 10/19/19 00:35 Amikacin Protocol (Amikacin pharmacy to dose) 1 ea DAILY PRN MISC Per rx protocol 10/17/19 10:15 11/16/19 10:14 Amikacin Sulfate 900 mg/Sodium Chloride 113.6 ml @ 113.6 mls/ hr Q12H IV 10/20/19 00:00 10/27/19 00:00 10/23/19 11:48 Benazepril HCl (Lotensin) 10 mg DAILY ORAL 10/13/19 09:00 11/12/19 08:59 10/23/19 08:49 Dextrose (Dextrose 50%) 25 ml Q30M PRN IV Hypoglycemia 10/13/19 04:00 11/12/19 03:59 Dextrose (Dextrose 50%) 50 ml Q30M PRN IV Hypoglycemia 10/13/19 04:00 11/12/19 03:59 Divalproex Sodium (Depakote) 250 mg BEDTIME ORAL 10/18/19 21:00 11/17/19 20:59 10/22/19 20:36 Divalproex Sodium (Depakote) 1,500 mg BEDTIME ORAL 10/18/19 21:00 11/17/19 20:59 10/22/19 20:36 Heparin Sodium (Porcine) (Heparin 5000 units/ml) 5,000 units EVERY 12 HOURS SUBQ 10/13/19 09:00 11/12/19 08:59 10/23/19 08:49 Insulin Aspart (NovoLOG) BEFORE MEALS AND HS SUBQ 10/13/19 06:30 11/12/19 06:29 10/23/19 17:09 Levothyroxine Sodium (Synthroid) 75 mcg ACBREAKFAST ORAL 10/13/19 06:30 11/12/19 06:29 10/23/19 06:06 Metformin HCl (Glucophage) 1,000 mg BID ORAL 10/16/19 09:00 11/12/19 06:29 10/23/19 17:08 Nateglinide (Starlix) 120 mg TIAC ORAL 10/18/19 16:30 11/13/19 16:29 10/23/19 17:08 Pioglitazone HCl (Actos) 30 mg DAILY ORAL 10/23/19 09:00 11/12/19 08:59 10/23/19 08:48 Pravastatin Sodium (Pravachol) 20 mg BEDTIME ORAL 10/13/19 21:00 11/12/19 20:59 10/22/19 20:37 Sitagliptin Phosphate (Januvia) 100 mg ACBREAKFAST ORAL 10/14/19 13:45 11/13/19 13:44 10/23/19 06:06 Allergies: Coded Allergies: No Known Allergies (Unverified , 10/12/19) ROS Limited/Unobtainable: No Constitutional: Reports: no symptoms HEENT: Reports: no symptoms Cardiovascular: Reports: no symptoms Respiratory: Reports: no symptoms Gastrointestinal/Abdominal: Reports: no symptoms Genitourinary: Reports: no symptoms Neurologic/Psychiatric: Reports: no symptoms Subjective 54 YO M admitted with uncontrolled diabetes, now UTI. Cover for Int Med-Dr Hoffman Objective Last Vital Signs Date Time Temp Pulse Resp B/P (MAP) Pulse Ox O2 Delivery O2 Flow Rate FiO2 10/23/19 16:00 97.9 76 18 110/72 (85) 93 10/23/19 08:02 Room Air Laboratory Tests Test 10/23/19 07:37 White Blood Count 7.7 K/UL (4.8-10.8) Red Blood Count 4.27 M/UL (4.70-6.10) L Hemoglobin 12.9 G/DL (14.2-18.0) L Hematocrit 37.9 % (42.0-52.0) L Mean Corpuscular Volume 89 FL (80-99) Mean Corpuscular Hemoglobin 30.1 PG (27.0-31.0) Mean Corpuscular Hemoglobin Concent 33.9 G/DL (32.0-36.0) Red Cell Distribution Width 11.9 % (11.6-14.8) Platelet Count 315 K/UL (150-450) Mean Platelet Volume 5.3 FL (6.5-10.1) L Neutrophils (%) (Auto) 59.3 % (45.0-75.0) Lymphocytes (%) (Auto) 35.4 % (20.0-45.0) Monocytes (%) (Auto) 4.5 % (1.0-10.0) Eosinophils (%) (Auto) 0.0 % (0.0-3.0) Basophils (%) (Auto) 0.7 % (0.0-2.0) Sodium Level 137 MMOL/L (136-145) Potassium Level 4.4 MMOL/L (3.5-5.1) Chloride Level 104 MMOL/L (98-107) Carbon Dioxide Level 25 MMOL/L (21-32) Anion Gap 8 mmol/L (5-15) Blood Urea Nitrogen 21 mg/dL (7-18) H Creatinine 1.1 MG/DL (0.55-1.30) Estimat Glomerular Filtration Rate > 60 mL/min (>60) Glucose Level 105 MG/DL (74-106) Calcium Level 8.6 MG/DL (8.5-10.1) Intake and Output 10/22/19 10/23/19 19:00 07:00 Intake Total 480 ml 313.6 ml Balance 480 ml 313.6 ml Intake Oral 480 ml 200 ml IV Total 113.6 ml # Voids 1 2 Objective PHYSICAL EXAMINATION: GENERAL: The patient is awake and responsive, in no acute distress. HEAD AND NECK: Pupils are equal and reactive to light. Extraocular muscles intact. Neck was supple. No JVD. LUNGS: Good air entry with no wheezing or rales. HEART: S1, S2. Distant heart sounds. No gallops. ABDOMEN: Soft, nondistended, and nontender. Mildly obese. EXTREMITIES: No cyanosis, clubbing, or edema NEUROLOGIC: Cranial nerves II through XII grossly grossly intact. Motor is 5/5 in all extremities. Gait was not assessed due to the patient's status. RECTAL: Refused and deferred. GENITOURINARY: Refused and deferred. PSYCHIATRIC: Mood and affect is calm. Assessment/Plan Assessment/Plan ASSESSMENT: 1. Uncontrolled diabetes type 2, possible due to underlying infection such as urinary tract infection. 2. urinary tract infection=ESBL E. Coli 3. Dehydration. 4. Acute kidney injury on chronic renal insufficiency. 5. Proteinuria. 6. Developmental delay. 7. Hypothyroidism. 8. Seizure disorder. 9. Morbid obesity. PLAN: 1. Admit the patient to the medical floor. 2. Start the patient on IV hydration. 3. Accu-Chek with sliding scale. 4. Monitor laboratory. 5. antibiotic=Amikacin per ID 6. DVT prophylaxis with heparin subcutaneous. 7. ID=Dr. Gutierrez. 8. Endocrinology = Dr Boateng 9. Discharge plan: return to board and care today Reynold Burton MD Oct 23, 2019 18:28
--- NOTE | 2019-10-23 19:26 | NUR ---
HAND-OFF: Report given to YUN Booker.
--- NOTE | 2019-10-23 19:30 | NUR ---
NURSE NOTES: RECEIVED PATIENT FROM YUN HAMLIN. PT IS AWAKE, AAOX2, ON ROOM AIR, NO ACUTE DISTRESS NOTED. NO IV ACCESS. WILL START NEW IV. OPTIFOAM NOTED ON LEFT BUTTOCK. PATIENT DENIES PAIN AT THE MOMENT. BED IS LOCKED AND LOW, BED ALARMS ACTIVE, SIDE RAILS UP X2 AND CALL LIGHT IS WITHIN REACH. WILL CONTINUE TO MONITOR.
[2019-10-23 20:00] VITALS: BP 128/76
--- NOTE | 2019-10-23 21:00 | NUR ---
NURSE NOTES: INFORMED DR. KEARNEY ABOUT PATIENT'S SEIZURE FROM [facility]LIER TODAY. NO NEW ORDERS.
[2019-10-23] MEDS: Depakote 500mg tab ORAL SCH (22:48)
[2019-10-24] VITALS: BP 138/71
[2019-10-24] MEDS: Amikacin 900 MG in NS 110 ML IV SCH ×2 (00:59→11:51)
[2019-10-24 04:00] VITALS: BP 141/72
[2019-10-24] MEDS: NovoLOG Insulin Flexpen SUBQ SCH ×4 (06:30→21:00)
--- NOTE | 2019-10-24 07:13 | General Progress Note ---
Assessment/Plan Problem List: (1) Hypothyroid ICD Codes: E03.9 - Hypothyroidism, unspecified SNOMED: 70867791 (2) Hyperglycemia ICD Codes: R73.9 - Hyperglycemia, unspecified SNOMED: 25936757 (3) Uncontrolled diabetes mellitus ICD Codes: E11.65 - Type 2 diabetes mellitus with hyperglycemia SNOMED: 19445381, 332800406 Assessment/Plan: continue Starlix 120 mg ac tid continue Januvia 100 mg daily continue Actos 15 mg daily continue Metformin 1000 mg bid continue NISS ac / hs continue Levothyroxine 75 mcg daily Subjective Allergies: Coded Allergies: No Known Allergies (Unverified , 10/12/19) All Systems: reviewed and negative except above Subjective events noted Item Value Date Time Bedside Blood Glucose 241 mg/dl H 10/23/19 1709 Bedside Blood Glucose 128 mg/dl H 10/23/19 1130 Bedside Blood Glucose 93 mg/dl 10/23/19 0619 Objective Last 24 Hour Vital Signs Date Time Temp Pulse Resp B/P (MAP) Pulse Ox O2 Delivery O2 Flow Rate FiO2 10/24/19 04:00 97.3 83 12 141/72 (95) 97 10/24/19 00:00 96.9 56 18 138/71 (93) 98 10/23/19 21:00 Room Air 10/23/19 20:00 97.7 85 16 128/76 (93) 98 10/23/19 16:00 97.9 76 18 110/72 (85) 93 10/23/19 12:00 97.3 87 18 105/70 (82) 95 10/23/19 08:49 163/81 10/23/19 08:02 Room Air 10/23/19 08:00 97.7 99 17 163/81 (108) 96 Intake and Output 10/23/19 10/24/19 19:00 07:00 Intake Total 1173.6 ml Balance 1173.6 ml IV Total 113.6 ml Other 1060 ml # Voids 2 Laboratory Tests 10/23/19 07:37: White Blood Count 7.7, Red Blood Count 4.27L, Hemoglobin 12.9L, Hematocrit 37.9L , Mean Corpuscular Volume 89, Mean Corpuscular Hemoglobin 30.1, Mean Corpuscular Hemoglobin Concent 33.9, Red Cell Distribution Width 11.9, Platelet Count 315, Mean Platelet Volume 5.3L, Neutrophils (%) (Auto) 59.3, Lymphocytes ( %) (Auto) 35.4, Monocytes (%) (Auto) 4.5, Eosinophils (%) (Auto) 0.0, Basophils (%) (Auto) 0.7, Sodium Level 137, Potassium Level 4.4, Chloride Level 104, Carbon Dioxide Level 25, Anion Gap 8, Blood Urea Nitrogen 21H, Creatinine 1.1, Estimat Glomerular Filtration Rate > 60, Glucose Level 105, Calcium Level 8.6 Height (Feet): 5 Height (Inches): 5.00 Weight (Pounds): 169 General Appearance: no apparent distress Neck: normal alignment Cardiovascular: normal rate Respiratory/Chest: lungs clear Abdomen: normal bowel sounds Pelvis: normal external exam Objective Current Medications Medications (Trade) Dose Ordered Sig/Kelly Route PRN Reason Start Time Stop Time Status Last Admin Dose Admin Acetaminophen (Tylenol) 650 mg Q6H PRN ORAL Mild Pain/Temp > 100.5 10/14/19 06:00 11/13/19 05:59 10/19/19 00:35 Amikacin Protocol (Amikacin pharmacy to dose) 1 ea DAILY PRN MISC Per rx protocol 10/17/19 10:15 11/16/19 10:14 Amikacin Sulfate 900 mg/Sodium Chloride 113.6 ml @ 113.6 mls/ hr Q12H IV 10/20/19 00:00 10/27/19 00:00 10/24/19 00:59 Benazepril HCl (Lotensin) 10 mg DAILY ORAL 10/13/19 09:00 11/12/19 08:59 10/23/19 08:49 Dextrose (Dextrose 50%) 25 ml Q30M PRN IV Hypoglycemia 10/13/19 04:00 11/12/19 03:59 Dextrose (Dextrose 50%) 50 ml Q30M PRN IV Hypoglycemia 10/13/19 04:00 11/12/19 03:59 Divalproex Sodium (Depakote) 250 mg BEDTIME ORAL 10/18/19 21:00 11/17/19 20:59 10/23/19 22:49 Divalproex Sodium (Depakote) 1,500 mg BEDTIME ORAL 10/18/19 21:00 11/17/19 20:59 10/23/19 22:48 Heparin Sodium (Porcine) (Heparin 5000 units/ml) 5,000 units EVERY 12 HOURS SUBQ 10/13/19 09:00 11/12/19 08:59 10/23/19 22:48 Insulin Aspart (NovoLOG) BEFORE MEALS AND HS SUBQ 10/13/19 06:30 11/12/19 06:29 10/23/19 17:09 Levothyroxine Sodium (Synthroid) 75 mcg ACBREAKFAST ORAL 10/13/19 06:30 11/12/19 06:29 10/24/19 06:50 Metformin HCl (Glucophage) 1,000 mg BID ORAL 10/16/19 09:00 11/12/19 06:29 10/23/19 17:08 Nateglinide (Starlix) 120 mg TIAC ORAL 10/18/19 16:30 11/13/19 16:29 10/23/19 17:08 Pioglitazone HCl (Actos) 30 mg DAILY ORAL 10/23/19 09:00 11/12/19 08:59 10/23/19 08:48 Pravastatin Sodium (Pravachol) 20 mg BEDTIME ORAL 10/13/19 21:00 11/12/19 20:59 10/23/19 22:49 Sitagliptin Phosphate (Januvia) 100 mg ACBREAKFAST ORAL 10/14/19 13:45 11/13/19 13:44 10/23/19 06:06 Prosper Boateng MD Oct 24, 2019 07:13
--- NOTE | 2019-10-24 07:38 | NUR ---
HAND-OFF: Report given to YUN Mitchell. Patient is in stable condition. Endorsed plan of care.
--- NOTE | 2019-10-24 07:39 | NUR ---
NURSE NOTES: Received patient in bed awake. No SOB or acute distress. IV line intact and patent, no s/sx of infiltration. HOB elevated. Bed locked in lowest position. Call light within reach. Will continue plan of care.
[2019-10-24 08:00] VITALS: BP 178/102
--- NOTE | 2019-10-24 08:30 | NUR ---
NURSE NOTES: BP elevated, MD aware, with new orders noted and carried out. For possible discharge today if no episode of seizures.
--- NOTE | 2019-10-24 08:30 | Geriatric Medicine Prog Note ---
DATE: 10/22/2019 NOTE: POOR AUDIO SUBJECTIVE: The patient is feeling better OBJECTIVE: VITAL SIGNS: Stable. RESP:Clear,CVS-Regular INV:Glucose 140 ASSESSMENT:Diabetes Mellitus in fair control PLANS:. Continue metformin 1000 mg p.o. b.i.d., Actos 15 mg daily, Accuchecks QID . a.c. and HS Actos will be increased from 15 to 30 mg daily. Kendall Phillips M.D. DR: ORALIA JOB#: [id number] CC: LAURA
[2019-10-24] MEDS: Benazepril 10mg tab ORAL SCH (08:43)
[2019-10-24] MEDS: metFORMIN 500mg tab ORAL SCH ×2 (08:43→17:40)
[2019-10-24] MEDS: Heparin 5000 units/ml inj SUBQ SCH ×2 (08:46→21:39)
--- NOTE | 2019-10-24 11:03 | NUR ---
RD ASSESSMENT & RECOMMENDATIONS SEE CARE ACTIVITY FOR COMPLETE ASSESSMENT DAILY ESTIMATED NEEDS: Needs based on DM, 65kg adj 25-30 kcals/kg 1001-7342 total kcals 1-1.5 g protein/kg 65-98 g total protein 25-30 mL/kg 4903-6692 total fluid mLs NUTRITION DIAGNOSIS: * Altered nutrition related lab values r/t diabetes as evidenced by A1C 11.4, u glu 3+ on adm. * Swallowing difficulty R/T dysphagia as evidenced by s/p MBSS w/ rec for [facility] soft ground w/ NTL. CURRENT DIET: CCHO LOW ms ground w/ NTL PO DIET RECOMMENDATIONS: CCHO LOW + LOW NA DIET (texture per SENIOR SUSTAINABILITY CONSULTANT) ADDITIONAL RECOMMENDATIONS: * Continuous accuchecks for hypoglycemia- pt on 4 oral hypoglycemics * Monitor BPs closely- elev BPs, hypotensive meds added -> rec to add Low Na to diet order. .
--- NOTE | 2019-10-24 11:59 | Infectious Diseases Prog Note ---
Assessment/Plan Assessment/Plan Assessment: SEpsis,SP Fever, recurrent; SP Leukocytosis, recurrent- SP UTI, sp rx -u/a wbc 2-4, nit +, leuk +1; ucx >100k ESBL E.coli (S Zosyn, Ertapenem, Amikacin, bactrim) -CXR: No acute process -10/13 Bcx NTD -influenza sc neg Hyperglycemia; improving OCTAVIA, SP seizure disorder developmental delay Plan: D/c IV AMikacin #8/7 and monitor off abx -10/17 SP Zosyn #4 -10/14 SP Ceftriaxone #2 -f/u cx -Monitor CBC/CMP, temperatures -aspiration precautions -If T >101, repeat 2 sets of Bcx Thank you for this consultation. Will continue to follow along with you. Subjective Allergies: Coded Allergies: No Known Allergies (Unverified , 10/12/19) Subjective afebrile no leukocytosis discharge planning Objective Vital Signs Last 24 Hour Vital Signs Date Time Temp Pulse Resp B/P (MAP) Pulse Ox O2 Delivery O2 Flow Rate FiO2 10/24/19 09:00 Room Air 10/24/19 08:56 178/102 10/24/19 08:56 82 178/102 10/24/19 08:43 178/102 10/24/19 08:00 98.3 82 18 178/102 (127) 100 10/24/19 04:00 97.3 83 12 141/72 (95) 97 10/24/19 00:00 96.9 56 18 138/71 (93) 98 10/23/19 21:00 Room Air 10/23/19 20:00 97.7 85 16 128/76 (93) 98 10/23/19 16:00 97.9 76 18 110/72 (85) 93 10/23/19 12:00 97.3 87 18 105/70 (82) 95 Height (Feet): 5 Height (Inches): 5.00 Weight (Pounds): 169 Objective GENERAL: The patient is awake and responsive, in no acute distress. HEAD AND NECK: Pupils are equal and reactive to light. Extraocular muscles intact. Neck was supple. No JVD. LUNGS: Good air entry with no wheezing or rales. HEART: S1, S2. Distant heart sounds. No gallops. ABDOMEN: Soft, nondistended, and nontender. Mildly obese. EXTREMITIES: No cyanosis, clubbing, or edema Current Medications Medications (Trade) Dose Ordered Sig/Kelly Route PRN Reason Start Time Stop Time Status Last Admin Dose Admin Acetaminophen (Tylenol) 650 mg Q6H PRN ORAL Mild Pain/Temp > 100.5 10/14/19 06:00 11/13/19 05:59 10/19/19 00:35 Amikacin Protocol (Amikacin pharmacy to dose) 1 ea DAILY PRN MISC Per rx protocol 10/17/19 10:15 11/16/19 10:14 Amikacin Sulfate 900 mg/Sodium Chloride 113.6 ml @ 113.6 mls/ hr Q12H IV 10/20/19 00:00 10/27/19 00:00 10/24/19 11:51 Amlodipine Besylate (Norvasc) 5 mg DAILY ORAL 10/24/19 09:00 11/23/19 08:59 10/24/19 08:56 Benazepril HCl (Lotensin) 10 mg DAILY ORAL 10/13/19 09:00 11/12/19 08:59 10/24/19 08:43 Clonidine HCl (Catapres Tab) 0.1 mg Q6H PRN ORAL For High Blood Pressure 10/24/19 09:00 11/23/19 08:59 10/24/19 08:56 Dextrose (Dextrose 50%) 25 ml Q30M PRN IV Hypoglycemia 10/13/19 04:00 11/12/19 03:59 Dextrose (Dextrose 50%) 50 ml Q30M PRN IV Hypoglycemia 10/13/19 04:00 11/12/19 03:59 Divalproex Sodium (Depakote) 250 mg BEDTIME ORAL 10/18/19 21:00 11/17/19 20:59 10/23/19 22:49 Divalproex Sodium (Depakote) 1,500 mg BEDTIME ORAL 10/18/19 21:00 11/17/19 20:59 10/23/19 22:48 Heparin Sodium (Porcine) (Heparin 5000 units/ml) 5,000 units EVERY 12 HOURS SUBQ 10/13/19 09:00 11/12/19 08:59 10/24/19 08:46 Insulin Aspart (NovoLOG) BEFORE MEALS AND HS SUBQ 10/13/19 06:30 11/12/19 06:29 10/24/19 11:52 Levothyroxine Sodium (Synthroid) 75 mcg ACBREAKFAST ORAL 10/13/19 06:30 11/12/19 06:29 10/24/19 06:50 Metformin HCl (Glucophage) 1,000 mg BID ORAL 10/16/19 09:00 11/12/19 06:29 10/24/19 08:43 Nateglinide (Starlix) 120 mg TIAC ORAL 10/18/19 16:30 11/13/19 16:29 10/24/19 11:51 Pioglitazone HCl (Actos) 30 mg DAILY ORAL 10/23/19 09:00 11/12/19 08:59 10/24/19 08:43 Pravastatin Sodium (Pravachol) 20 mg BEDTIME ORAL 10/13/19 21:00 11/12/19 20:59 10/23/19 22:49 Sitagliptin Phosphate (Januvia) 100 mg ACBREAKFAST ORAL 10/14/19 13:45 11/13/19 13:44 10/23/19 06:06 Roxana Gutierrez M.D. Oct 24, 2019 11:59
[2019-10-24 12:00] VITALS: BP 84/58
--- NOTE | 2019-10-24 13:40 | Pulmonology Progress Note ---
Assessment/Plan Problems: (1) Fever (2) UTI (urinary tract infection) (3) Renal failure (4) Uncontrolled diabetes mellitus Assessment/Plan had one episode of seizures last night just prior to discharge Neuro evaluation check cultures again check electrolytes BS better controlled Subjective ROS Limited/Unobtainable: No Constitutional: Reports: no symptoms HEENT: Repors: no symptoms Allergies: Coded Allergies: No Known Allergies (Unverified , 10/12/19) Objective Last 24 Hour Vital Signs Date Time Temp Pulse Resp B/P (MAP) Pulse Ox O2 Delivery O2 Flow Rate FiO2 10/24/19 09:00 Room Air 10/24/19 08:56 178/102 10/24/19 08:56 82 178/102 10/24/19 08:43 178/102 10/24/19 08:00 98.3 82 18 178/102 (127) 100 10/24/19 04:00 97.3 83 12 141/72 (95) 97 10/24/19 00:00 96.9 56 18 138/71 (93) 98 10/23/19 21:00 Room Air 10/23/19 20:00 97.7 85 16 128/76 (93) 98 10/23/19 16:00 97.9 76 18 110/72 (85) 93 Intake and Output 10/23/19 10/24/19 19:00 07:00 Intake Total 1173.6 ml Balance 1173.6 ml IV Total 113.6 ml Other 1060 ml # Voids 2 Objective General Appearance: WD/WN HEENT: normocephalic, atraumatic Respiratory/Chest: chest wall non-tender, lungs clear Breasts: no masses Cardiovascular: normal peripheral pulses Abdomen: normal bowel sounds, soft, non tender Genitourinary: normal external genitalia Extremities: no cyanosis Neurologic/Psychiatric: upper cutter machine II-XII grossly normal Lymphatic: no neck adenopathy Laboratory Tests 10/24/19 12:35: Valproic Acid (Depakene) Level 65 Current Medications Medications (Trade) Dose Ordered Sig/Kelly Route PRN Reason Start Time Stop Time Status Last Admin Dose Admin Acetaminophen (Tylenol) 650 mg Q6H PRN ORAL Mild Pain/Temp > 100.5 10/14/19 06:00 11/13/19 05:59 10/19/19 00:35 Amlodipine Besylate (Norvasc) 5 mg DAILY ORAL 10/24/19 09:00 11/23/19 08:59 10/24/19 08:56 Benazepril HCl (Lotensin) 10 mg DAILY ORAL 10/13/19 09:00 11/12/19 08:59 10/24/19 08:43 Clonidine HCl (Catapres Tab) 0.1 mg Q6H PRN ORAL For High Blood Pressure 10/24/19 09:00 11/23/19 08:59 10/24/19 08:56 Dextrose (Dextrose 50%) 25 ml Q30M PRN IV Hypoglycemia 10/13/19 04:00 11/12/19 03:59 Dextrose (Dextrose 50%) 50 ml Q30M PRN IV Hypoglycemia 10/13/19 04:00 11/12/19 03:59 Divalproex Sodium (Depakote) 250 mg BEDTIME ORAL 10/18/19 21:00 11/17/19 20:59 10/23/19 22:49 Divalproex Sodium (Depakote) 1,500 mg BEDTIME ORAL 10/18/19 21:00 11/17/19 20:59 10/23/19 22:48 Heparin Sodium (Porcine) (Heparin 5000 units/ml) 5,000 units EVERY 12 HOURS SUBQ 10/13/19 09:00 11/12/19 08:59 10/24/19 08:46 Insulin Aspart (NovoLOG) BEFORE MEALS AND HS SUBQ 10/13/19 06:30 11/12/19 06:29 10/24/19 11:52 Levothyroxine Sodium (Synthroid) 75 mcg ACBREAKFAST ORAL 10/13/19 06:30 11/12/19 06:29 10/24/19 06:50 Metformin HCl (Glucophage) 1,000 mg BID ORAL 10/16/19 09:00 11/12/19 06:29 10/24/19 08:43 Nateglinide (Starlix) 120 mg TIAC ORAL 10/18/19 16:30 11/13/19 16:29 10/24/19 11:51 Pioglitazone HCl (Actos) 30 mg DAILY ORAL 10/23/19 09:00 11/12/19 08:59 10/24/19 08:43 Pravastatin Sodium (Pravachol) 20 mg BEDTIME ORAL 10/13/19 21:00 11/12/19 20:59 10/23/19 22:49 Sitagliptin Phosphate (Januvia) 100 mg ACBREAKFAST ORAL 10/14/19 13:45 11/13/19 13:44 10/23/19 06:06 Thomas Velarde MD Oct 24, 2019 13:40
[2019-10-24 16:00] VITALS: BP 90/52
--- NOTE | 2019-10-24 17:34 | Internal Med Progress Note ---
Subjective Date of Service: Oct 24, 2019 Physician Name Reynold Burton Attending Physician Ankush Hoffman MD Current Medications Medications (Trade) Dose Ordered Sig/Kelly Route PRN Reason Start Time Stop Time Status Last Admin Dose Admin Acetaminophen (Tylenol) 650 mg Q6H PRN ORAL Mild Pain/Temp > 100.5 10/14/19 06:00 11/13/19 05:59 10/19/19 00:35 Amlodipine Besylate (Norvasc) 5 mg DAILY ORAL 10/24/19 09:00 11/23/19 08:59 10/24/19 08:56 Benazepril HCl (Lotensin) 10 mg DAILY ORAL 10/13/19 09:00 11/12/19 08:59 10/24/19 08:43 Clonidine HCl (Catapres Tab) 0.1 mg Q6H PRN ORAL For High Blood Pressure 10/24/19 09:00 11/23/19 08:59 10/24/19 08:56 Dextrose (Dextrose 50%) 25 ml Q30M PRN IV Hypoglycemia 10/13/19 04:00 11/12/19 03:59 Dextrose (Dextrose 50%) 50 ml Q30M PRN IV Hypoglycemia 10/13/19 04:00 11/12/19 03:59 Divalproex Sodium (Depakote) 250 mg BEDTIME ORAL 10/18/19 21:00 11/17/19 20:59 10/23/19 22:49 Divalproex Sodium (Depakote) 1,500 mg BEDTIME ORAL 10/18/19 21:00 11/17/19 20:59 10/23/19 22:48 Heparin Sodium (Porcine) (Heparin 5000 units/ml) 5,000 units EVERY 12 HOURS SUBQ 10/13/19 09:00 11/12/19 08:59 10/24/19 08:46 Insulin Aspart (NovoLOG) BEFORE MEALS AND HS SUBQ 10/13/19 06:30 11/12/19 06:29 10/24/19 11:52 Levothyroxine Sodium (Synthroid) 75 mcg ACBREAKFAST ORAL 10/13/19 06:30 11/12/19 06:29 10/24/19 06:50 Metformin HCl (Glucophage) 1,000 mg BID ORAL 10/16/19 09:00 11/12/19 06:29 10/24/19 08:43 Nateglinide (Starlix) 120 mg TIAC ORAL 10/18/19 16:30 11/13/19 16:29 10/24/19 11:51 Pioglitazone HCl (Actos) 30 mg DAILY ORAL 10/23/19 09:00 11/12/19 08:59 10/24/19 08:43 Pravastatin Sodium (Pravachol) 20 mg BEDTIME ORAL 10/13/19 21:00 11/12/19 20:59 10/23/19 22:49 Sitagliptin Phosphate (Januvia) 100 mg ACBREAKFAST ORAL 10/14/19 13:45 11/13/19 13:44 10/23/19 06:06 Allergies: Coded Allergies: No Known Allergies (Unverified , 10/12/19) ROS Limited/Unobtainable: No Constitutional: Reports: no symptoms HEENT: Reports: no symptoms Cardiovascular: Reports: no symptoms Respiratory: Reports: no symptoms Gastrointestinal/Abdominal: Reports: no symptoms Genitourinary: Reports: no symptoms Neurologic/Psychiatric: Reports: no symptoms Subjective 54 YO M admitted with uncontrolled diabetes, now UTI. Cover for [facility] Med-Dr Hoffman. Discharge held due to seizure activity Objective Last Vital Signs Date Time Temp Pulse Resp B/P (MAP) Pulse Ox O2 Delivery O2 Flow Rate FiO2 10/24/19 12:00 98.5 79 17 84/58 (67) 99 10/24/19 09:00 Room Air Laboratory Tests Test 10/24/19 12:35 Valproic Acid (Depakene) Level 65 MCG/ML (50-100) Intake and Output 10/23/19 10/24/19 19:00 07:00 Intake Total 1173.6 ml Balance 1173.6 ml IV Total 113.6 ml Other 1060 ml # Voids 2 Objective PHYSICAL EXAMINATION: GENERAL: The patient is awake and responsive, in no acute distress. HEAD AND NECK: Pupils are equal and reactive to light. Extraocular muscles intact. Neck was supple. No JVD. LUNGS: Good air entry with no wheezing or rales. HEART: S1, S2. Distant heart sounds. No gallops. ABDOMEN: Soft, nondistended, and nontender. Mildly obese. EXTREMITIES: No cyanosis, clubbing, or edema NEUROLOGIC: Cranial nerves II through XII grossly grossly intact. Motor is 5/5 in all extremities. Gait was not assessed due to the patient's status. RECTAL: Refused and deferred. GENITOURINARY: Refused and deferred. PSYCHIATRIC: Mood and affect is calm. Assessment/Plan Assessment/Plan ASSESSMENT: 1. Uncontrolled diabetes type 2, possible due to underlying infection such as urinary tract infection. 2. urinary tract infection=ESBL E. Coli 3. Dehydration. 4. Acute kidney injury on chronic renal insufficiency. 5. Proteinuria. 6. Developmental delay. 7. Hypothyroidism. 8. Seizure disorder. 9. Morbid obesity. PLAN: 1. Admit the patient to the medical floor. 2. Start the patient on IV hydration. 3. Accu-Chek with sliding scale. 4. Monitor laboratory. 5. antibiotic=Amikacin per ID 6. DVT prophylaxis with heparin subcutaneous. 7. ID=Dr. Gutierrez. 8. Endocrinology = Dr Boateng 9. Discharge plan: return to board and care when seizures controlled Reynold Burton MD Oct 24, 2019 17:33
--- NOTE | 2019-10-24 18:00 | NUR ---
NURSE NOTES: Spoke to Maren of board and care to inform her of patient's discharge. She said patient will be picked up tomorrow. Dr Hoffman aware, ok for discharge tomorrow per MD.
--- NOTE | 2019-10-24 19:30 | NUR ---
HAND-OFF: Report given to musa.
--- NOTE | 2019-10-24 19:30 | NUR ---
NURSE NOTES: RECEIVED PATIENT FROM YUN POE. PT IS AWAKE, AAOX4, ON ROOM AIR, NO ACUTE DISTRESS NOTED. WOUND DRESSINGS INTACT. IV INTACT. BED IS LOCKED AND LOW, BED ALARMS ACTIVE, SIDE RAILS UPX2 AND CALL LIGHT IS WITHIN REACH. WILL CONTINUE TO MONITOR.
[2019-10-24 20:00] VITALS: BP 93/55
[2019-10-24] MEDS: Depakote 500mg tab ORAL SCH (21:38)
--- NOTE | 2019-10-24 23:45 | Consultation ---
DATE OF CONSULTATION: 10/24/2019 CONSULTING PHYSICIAN: Mitch Mora M.D. CHIEF COMPLAINT: This is the first [facility] admission for this 54-year-old male with a history of developmental delay, residing in a [facility]. The patient was accompanied by his caregiver on admission. There was no specific complaint. He was admitted with elevated blood sugars. The patient was anemic on admission with a normal platelet count and an elevated white count as high as 14,000, although now it is basically within the normal range. His blood glucose was 471 on admission with a sodium of 129, low albumin, depressed GFR. BUN is 23, creatinine 2, calcium and magnesium were little on the low side. His acetone level was negative. Urinalysis revealed +2 ketones, +3 glucose, +3 protein, 2 to 4 wbc's and moderately elevated bacteria. The patient's chest x-ray on admission was basically normal except for old healed rib fracture deformities bilaterally. There were extensive posttraumatic changes of the left shoulder including the glenoid. Repeat chest x-ray on 10/17/2019 was negative. The patient's blood cultures were negative. Urine culture revealed E. coli. He was seen by Infectious Disease, see the report, I was asked to see the patient because of a possible seizure. The patient allegedly has a history of seizure disorder. Seizure was right-sided twitching of his face for 20 seconds, then the patient was ready for discharge, but it was canceled. I was then asked to see the patient to evaluate seizures. The patient was started on Depakote 1500 mg at bedtime on 10/18/2019, apparently there is no morning dose. He is also on Actos, pravastatin, and Januvia. Amlodipine, amikacin, which were discontinued on 10/24/2019. Levothyroxine for his hypothyroidism. Metformin 1000 mg b.i.d. Pravachol 20 mg at bedtime. The patient's blood sugars have been elevated. There is no evidence of hypoglycemia. Calcium was within normal range. Magnesium is also normal at 124. Calcium at 127 was also normal. The patient has had no further seizures. PAST MEDICAL HISTORY: 1. AODM type 2. 2. Seizure disorder, probably focal seizures secondary to generalization. 3. Developmental delay. 4. Hypothyroidism. 5. Chronic kidney disease with proteinuria secondary to diabetes. 6. Probable hyperlipidemia. ALLERGIES: No known allergies. SOCIAL HISTORY: He lives at a group house. FAMILY HISTORY: Unavailable. HABITS: There is no history of tobacco or alcohol abuse, no illegal drug use. MEDICATIONS: At home are lorazepam 2 mg, metformin 1000 mg, Actos 15 mg, pravastatin 20 mg, Bactrim DS, zolpidem tartrate, glyburide, levofloxacin 500 mg. REVIEW OF SYSTEMS: Essentially unavailable. PHYSICAL EXAMINATION: GENERAL: This is a well-developed, well-nourished overweight man, lying in bed, alert and awake. VITAL SIGNS: Blood pressure is 178/102, pulse is 82 and regular, temperature is 98.3 degrees, respiratory rate is 18. HEENT: Examination of head, ears, eyes, nose, mouth, and throat is basically intact. NECK: Supple. Carotids are +2. No bruits could be appreciated. LUNGS: Clear to auscultation. CARDIOVASCULAR: PMI could not be felt. JVP is not elevated. The patient had normal S1 and S2, is physiologically split. There was no S3, S4, murmurs, or rubs appreciated. ABDOMEN: The abdomen is obese. Bowel sounds intact. No tenderness, masses, or organomegaly. EXTREMITIES: Basically intact. NEUROLOGICAL EXAMINATION: MENTAL STATUS: The patient is alert and awake. He had paraphasic errors and speech. His judgment could not be tested. Affect was inappropriate. Memory is hard to tell whether or not he actually knew his birthday or his mother's name. Immediate recall was at least 2/3 objects. Recent recall 0/3 objects at 5 minutes. Intellect could not be tested. Orientation, he thought he was in [facility], did not know the date, did not know his name. Language function, spoken speech was not fluent in paraphasic errors. Comprehension was impaired. Repetition was impaired indicated, however, he could stick out his tongue and move his right or left hand to command and touch his nose. CRANIAL NERVE EXAMINATION: CRANIAL NERVE II: Visual roach were grossly intact to confrontation. Fundi were not visualized. CRANIAL NERVES III, IV, AND : The eyes were midline. Eye movements were probably intact. Pupils are approximately 5 mm, round, light reactive. CRANIAL NERVE V: Corneal sensation was intact to fine touch. CRANIAL NERVE VII: Facial strength was 5/5. CRANIAL NERVE VIII: Auditory acuity is partially intact and gag was decreased bilaterally. CRANIAL NERVE XI: Sternocleidomastoid strength was probably 5/5. CRANIAL NERVE XII: Tongue protrudes in the midline without fasciculations or atrophy. MUSCLE EXAMINATION: Muscle bulk is symmetrical. Tone reveals paratonia in all 4 extremities. Strength, can move all 4 extremities fairly symmetrically. REFLEXES: Reflexes are +1 in the upper extremities except for the triceps, which were trace. Ankle jerks appeared to be 0, although there was some crossed adductor movement. Toes were downgoing bilaterally. COORDINATION: [id number] revealed a tremor throughout, but no dysmetria. SENSORY EXAMINATION: Sensation is intact to DP in all 4 extremities. IMPRESSION: The patient has a focal seizure disorder, probably involving an operculum on the left side involving the facial muscles as well. He has a previous history of seizures. The patient should be on twice a day medication. The patient should have a blood Depakote level at this time. The patient could have had a small embolus or stroke involving the cortical area on the left side. His blood pressure needs to be treated. PLAN: 1. Blood Depakote level. 2. EEG. 3. Depakote 500 mg in the a.m. and 1250m at night. 4. I will speak to you about this case. 5. Consider an EEG. 6. I will speak to you at this case and consider an EEG and MRI. 7. I will speak to you about at this case. Thank you very much for this interesting case. Mitch Mora MD DR: Doug JOB#: [id number] CC: LAURA
[2019-10-25] VITALS: BP_SYST 86; BP_SYST 97; BP_DIAS 60; BP_DIAS 61
[2019-10-25 04:00] VITALS: BP 95/57
[2019-10-25 05:48] LABS: BASOPHILS % (AUTO) 1.1 % (0.0-2.0); EOSINOPHILS % (AUTO) 0.6 % (0.0-3.0); HEMATOCRIT 34.6 % (42.0-52.0); HEMOGLOBIN 11.7 G/DL (14.2-18.0); LYMPHOCYTES % (AUTO) 40.4 % (20.0-45.0); MEAN CORPUSCULAR VOLUME 90 FL (80-99); MONOCYTES % (AUTO) 5.7 % (1.0-10.0); NEUTROPHILS % (AUTO) 52.2 % (45.0-75.0); PLATELET COUNT 265 K/UL (150-450); RED BLOOD COUNT 3.86 M/UL (4.70-6.10); RED CELL DISTRIBUTION WIDTH 12.4 % (11.6-14.8); WHITE BLOOD COUNT 7.7 K/UL (4.8-10.8)
[2019-10-25] MEDS: NovoLOG Insulin Flexpen SUBQ SCH ×2 (06:30→11:30)
[2019-10-25 06:36] LABS: ANION GAP 9 mmol/L (5-15); BLOOD UREA NITROGEN 26 mg/dL (7-18); CALCIUM 7.9 MG/DL (8.5-10.1); CARBON DIOXIDE 25 MMOL/L (21-32); CHLORIDE 104 MMOL/L (98-107); CREATININE 1.2 MG/DL (0.55-1.30); POTASSIUM 4.1 MMOL/L (3.5-5.1); SODIUM 138 MMOL/L (136-145)
--- NOTE | 2019-10-25 07:22 | NUR ---
HAND-OFF: Report given to YUN Mitchell. Patient in stable condition. Endorsed plan of care.
--- NOTE | 2019-10-25 07:30 | NUR ---
NURSE NOTES: Received patient in bed asleep. No SOB or acute distress. IV line intact and patent, no s/sx if infiltration. HOB elevated. Bed locked in lowest position. Call light within reach. For discharge today if remains stable. Board and care to sheepskin pickler patient. Will continue plan of care.
[2019-10-25 08:00] VITALS: BP 139/74
[2019-10-25] MEDS: Benazepril 10mg tab ORAL SCH (09:25)
[2019-10-25] MEDS: metFORMIN 500mg tab ORAL SCH (09:25)
[2019-10-25] MEDS: Heparin 5000 units/ml inj SUBQ SCH (09:27)
--- NOTE | 2019-10-25 11:12 | Internal Med Progress Note ---
Subjective Date of Service: Oct 25, 2019 Physician Name Reynold Burton Attending Physician Ankush Hoffman MD Current Medications Medications (Trade) Dose Ordered Sig/Kelly Route PRN Reason Start Time Stop Time Status Last Admin Dose Admin Acetaminophen (Tylenol) 650 mg Q6H PRN ORAL Mild Pain/Temp > 100.5 10/14/19 06:00 11/13/19 05:59 10/19/19 00:35 Amlodipine Besylate (Norvasc) 5 mg DAILY ORAL 10/24/19 09:00 11/23/19 08:59 10/25/19 09:24 Benazepril HCl (Lotensin) 10 mg DAILY ORAL 10/13/19 09:00 11/12/19 08:59 10/25/19 09:25 Clonidine HCl (Catapres Tab) 0.1 mg Q6H PRN ORAL For High Blood Pressure 10/24/19 09:00 11/23/19 08:59 10/24/19 08:56 Dextrose (Dextrose 50%) 25 ml Q30M PRN IV Hypoglycemia 10/13/19 04:00 11/12/19 03:59 Dextrose (Dextrose 50%) 50 ml Q30M PRN IV Hypoglycemia 10/13/19 04:00 11/12/19 03:59 Divalproex Sodium (Depakote) 250 mg BEDTIME ORAL 10/18/19 21:00 11/17/19 20:59 10/24/19 21:37 Divalproex Sodium (Depakote) 1,500 mg BEDTIME ORAL 10/18/19 21:00 11/17/19 20:59 10/24/19 21:38 Heparin Sodium (Porcine) (Heparin 5000 units/ml) 5,000 units EVERY 12 HOURS SUBQ 10/13/19 09:00 11/12/19 08:59 10/25/19 09:27 Insulin Aspart (NovoLOG) BEFORE MEALS AND HS SUBQ 10/13/19 06:30 11/12/19 06:29 10/24/19 11:52 Levothyroxine Sodium (Synthroid) 75 mcg ACBREAKFAST ORAL 10/13/19 06:30 11/12/19 06:29 10/25/19 07:12 Metformin HCl (Glucophage) 1,000 mg BID ORAL 10/16/19 09:00 11/12/19 06:29 10/25/19 09:25 Nateglinide (Starlix) 120 mg TIAC ORAL 10/18/19 16:30 11/13/19 16:29 10/24/19 11:51 Pioglitazone HCl (Actos) 30 mg DAILY ORAL 10/23/19 09:00 11/12/19 08:59 10/25/19 09:24 Pravastatin Sodium (Pravachol) 20 mg BEDTIME ORAL 10/13/19 21:00 11/12/19 20:59 10/24/19 21:38 Sitagliptin Phosphate (Januvia) 100 mg ACBREAKFAST ORAL 10/14/19 13:45 11/13/19 13:44 10/23/19 06:06 Allergies: Coded Allergies: No Known Allergies (Unverified , 10/12/19) ROS Limited/Unobtainable: No Constitutional: Reports: no symptoms HEENT: Reports: no symptoms Cardiovascular: Reports: no symptoms Respiratory: Reports: no symptoms Gastrointestinal/Abdominal: Reports: no symptoms Genitourinary: Reports: no symptoms Neurologic/Psychiatric: Reports: no symptoms Subjective 54 YO M admitted with uncontrolled diabetes, now UTI. Cover for Int Med-Dr Hoffman. Objective Last Vital Signs Date Time Temp Pulse Resp B/P (MAP) Pulse Ox O2 Delivery O2 Flow Rate FiO2 10/25/19 09:25 139/74 10/25/19 09:24 77 10/25/19 09:00 Room Air 10/25/19 08:00 97.9 18 96 Laboratory Tests Test 10/24/19 12:35 10/25/19 05:22 Valproic Acid (Depakene) Level 65 MCG/ML (50-100) White Blood Count 7.7 K/UL (4.8-10.8) Red Blood Count 3.86 M/UL (4.70-6.10) L Hemoglobin 11.7 G/DL (14.2-18.0) L Hematocrit 34.6 % (42.0-52.0) L Mean Corpuscular Volume 90 FL (80-99) Mean Corpuscular Hemoglobin 30.2 PG (27.0-31.0) Mean Corpuscular Hemoglobin Concent 33.7 G/DL (32.0-36.0) Red Cell Distribution Width 12.4 % (11.6-14.8) Platelet Count 265 K/UL (150-450) Mean Platelet Volume 5.0 FL (6.5-10.1) L Neutrophils (%) (Auto) 52.2 % (45.0-75.0) Lymphocytes (%) (Auto) 40.4 % (20.0-45.0) Monocytes (%) (Auto) 5.7 % (1.0-10.0) Eosinophils (%) (Auto) 0.6 % (0.0-3.0) Basophils (%) (Auto) 1.1 % (0.0-2.0) Sodium Level 138 MMOL/L (136-145) Potassium Level 4.1 MMOL/L (3.5-5.1) Chloride Level 104 MMOL/L (98-107) Carbon Dioxide Level 25 MMOL/L (21-32) Anion Gap 9 mmol/L (5-15) Blood Urea Nitrogen 26 mg/dL (7-18) H Creatinine 1.2 MG/DL (0.55-1.30) Estimat Glomerular Filtration Rate > 60 mL/min (>60) Glucose Level 82 MG/DL (74-106) Calcium Level 7.9 MG/DL (8.5-10.1) L Intake and Output 10/24/19 10/25/19 19:00 07:00 # Voids 5 Objective PHYSICAL EXAMINATION: GENERAL: The patient is awake and responsive, in no acute distress. HEAD AND NECK: Pupils are equal and reactive to light. Extraocular muscles intact. Neck was supple. No JVD. LUNGS: Good air entry with no wheezing or rales. HEART: S1, S2. Distant heart sounds. No gallops. ABDOMEN: Soft, nondistended, and nontender. Mildly obese. EXTREMITIES: No cyanosis, clubbing, or edema NEUROLOGIC: Cranial nerves II through XII grossly grossly intact. Motor is 5/5 in all extremities. Gait was not assessed due to the patient's status. RECTAL: Refused and deferred. GENITOURINARY: Refused and deferred. PSYCHIATRIC: Mood and affect is calm. Assessment/Plan Assessment/Plan ASSESSMENT: 1. Uncontrolled diabetes type 2, possible due to underlying infection such as urinary tract infection. 2. urinary tract infection=ESBL E. Coli 3. Dehydration. 4. Acute kidney injury on chronic renal insufficiency. 5. Proteinuria. 6. Developmental delay. 7. Hypothyroidism. 8. Seizure disorder. 9. Morbid obesity. PLAN: 1. Admit the patient to the medical floor. 2. Start the patient on IV hydration. 3. Accu-Chek with sliding scale. 4. Monitor laboratory. 5. antibiotic=Amikacin per ID 6. DVT prophylaxis with heparin subcutaneous. 7. ID=Dr. Gutierrez. 8. Endocrinology = Dr Boateng 9. Discharge plan: return to board and care when bed available Reynold Burton MD Oct 25, 2019 11:12
[2019-10-25 12:00] VITALS: BP 93/58
--- NOTE | 2019-10-25 13:08 | Infectious Diseases Prog Note ---
Assessment/Plan Assessment/Plan Assessment: SEpsis,SP Fever, recurrent; SP Leukocytosis, recurrent- SP UTI, sp rx -u/a wbc 2-4, nit +, leuk +1; ucx >100k ESBL E.coli (S Zosyn, Ertapenem, Amikacin, bactrim) -CXR: No acute process -10/13 Bcx Neg -influenza sc neg Hyperglycemia; improving OCTAVIA, SP seizure disorder developmental delay Plan: Continue to monitor off abx -10/24 SP IV Amikacin #8 -10/17 SP Zosyn #4 -10/14 SP Ceftriaxone #2 -f/u cx -Monitor CBC/CMP, temperatures -aspiration precautions -If T >101, repeat 2 sets of Bcx Thank you for this consultation. Will continue to follow along with you. Subjective Allergies: Coded Allergies: No Known Allergies (Unverified , 10/12/19) Subjective afebrile no leukocytosis discharge planning Objective Vital Signs Last 24 Hour Vital Signs Date Time Temp Pulse Resp B/P (MAP) Pulse Ox O2 Delivery O2 Flow Rate FiO2 10/25/19 12:00 98.5 78 18 93/58 (70) 97 10/25/19 09:25 139/74 10/25/19 09:24 77 139/74 10/25/19 09:00 Room Air 10/25/19 08:00 97.9 77 18 139/74 (95) 96 10/25/19 04:00 97.5 72 20 95/57 (70) 97 10/25/19 00:00 97.3 67 20 97/60 (72) 96 10/24/19 21:00 Room Air 10/24/19 20:00 97.2 69 20 93/55 (68) 98 10/24/19 16:00 98.7 84 16 90/52 (65) 98 Height (Feet): 5 Height (Inches): 5.00 Weight (Pounds): 163 Objective GENERAL: The patient is awake and responsive, in no acute distress. HEAD AND NECK: Pupils are equal and reactive to light. Extraocular muscles intact. Neck was supple. No JVD. LUNGS: Good air entry with no wheezing or rales. HEART: S1, S2. Distant heart sounds. No gallops. ABDOMEN: Soft, nondistended, and nontender. Mildly obese. EXTREMITIES: No cyanosis, clubbing, or edema Laboratory Tests Test 10/25/19 05:22 White Blood Count 7.7 K/UL (4.8-10.8) Red Blood Count 3.86 M/UL (4.70-6.10) L Hemoglobin 11.7 G/DL (14.2-18.0) L Hematocrit 34.6 % (42.0-52.0) L Mean Corpuscular Volume 90 FL (80-99) Mean Corpuscular Hemoglobin 30.2 PG (27.0-31.0) Mean Corpuscular Hemoglobin Concent 33.7 G/DL (32.0-36.0) Red Cell Distribution Width 12.4 % (11.6-14.8) Platelet Count 265 K/UL (150-450) Mean Platelet Volume 5.0 FL (6.5-10.1) L Neutrophils (%) (Auto) 52.2 % (45.0-75.0) Lymphocytes (%) (Auto) 40.4 % (20.0-45.0) Monocytes (%) (Auto) 5.7 % (1.0-10.0) Eosinophils (%) (Auto) 0.6 % (0.0-3.0) Basophils (%) (Auto) 1.1 % (0.0-2.0) Sodium Level 138 MMOL/L (136-145) Potassium Level 4.1 MMOL/L (3.5-5.1) Chloride Level 104 MMOL/L (98-107) Carbon Dioxide Level 25 MMOL/L (21-32) Anion Gap 9 mmol/L (5-15) Blood Urea Nitrogen 26 mg/dL (7-18) H Creatinine 1.2 MG/DL (0.55-1.30) Estimat Glomerular Filtration Rate > 60 mL/min (>60) Glucose Level 82 MG/DL (74-106) Calcium Level 7.9 MG/DL (8.5-10.1) L Current Medications Medications (Trade) Dose Ordered Sig/Kelly Route PRN Reason Start Time Stop Time Status Last Admin Dose Admin Acetaminophen (Tylenol) 650 mg Q6H PRN ORAL Mild Pain/Temp > 100.5 10/14/19 06:00 11/13/19 05:59 10/19/19 00:35 Amlodipine Besylate (Norvasc) 5 mg DAILY ORAL 10/24/19 09:00 11/23/19 08:59 10/25/19 09:24 Benazepril HCl (Lotensin) 10 mg DAILY ORAL 10/13/19 09:00 11/12/19 08:59 10/25/19 09:25 Clonidine HCl (Catapres Tab) 0.1 mg Q6H PRN ORAL For High Blood Pressure 10/24/19 09:00 11/23/19 08:59 10/24/19 08:56 Dextrose (Dextrose 50%) 25 ml Q30M PRN IV Hypoglycemia 10/13/19 04:00 11/12/19 03:59 Dextrose (Dextrose 50%) 50 ml Q30M PRN IV Hypoglycemia 10/13/19 04:00 11/12/19 03:59 Divalproex Sodium (Depakote) 250 mg BEDTIME ORAL 10/18/19 21:00 11/17/19 20:59 10/24/19 21:37 Divalproex Sodium (Depakote) 1,500 mg BEDTIME ORAL 10/18/19 21:00 11/17/19 20:59 10/24/19 21:38 Heparin Sodium (Porcine) (Heparin 5000 units/ml) 5,000 units EVERY 12 HOURS SUBQ 10/13/19 09:00 11/12/19 08:59 10/25/19 09:27 Insulin Aspart (NovoLOG) BEFORE MEALS AND HS SUBQ 10/13/19 06:30 11/12/19 06:29 10/24/19 11:52 Levothyroxine Sodium (Synthroid) 75 mcg ACBREAKFAST ORAL 10/13/19 06:30 11/12/19 06:29 10/25/19 07:12 Metformin HCl (Glucophage) 1,000 mg BID ORAL 10/16/19 09:00 11/12/19 06:29 10/25/19 09:25 Nateglinide (Starlix) 120 mg TIAC ORAL 10/18/19 16:30 11/13/19 16:29 10/25/19 12:42 Pioglitazone HCl (Actos) 30 mg DAILY ORAL 10/23/19 09:00 11/12/19 08:59 10/25/19 09:24 Pravastatin Sodium (Pravachol) 20 mg BEDTIME ORAL 10/13/19 21:00 11/12/19 20:59 10/24/19 21:38 Sitagliptin Phosphate (Januvia) 100 mg ACBREAKFAST ORAL 10/14/19 13:45 11/13/19 13:44 10/23/19 06:06 Roxnaa Gutierrez M.D. Oct 25, 2019 13:08
--- NOTE | 2019-10-25 15:10 | NUR ---
CASE MANAGEMENT:REVIEW 10/20/2019 SI:FEVER . SEPSIS . UTI . UNCONTROLLED DM. HYPERGLYCEMIA. 98.1 84 18 113/77 93% ON RA H/H 12.0/34.6 IS:IV AMIKACIN Q24HR HEPARIN SQ BID LOTENSIN PO QD KLONOPIN OP BID DEPAKOTE PO QHS ACTOS PO QD STARLIX PO TIAC METFORMIN PO BID NOVOLOG SQ AC&HS ACTOS PO QD JANUVIA PO AC SYNTHROID PO QAM \: 3E MED SURG UNIT DCP: HOME WHEN STABLE PLAN: DISCHARGE HELD FOR IV ABX CASE MANAGEMENT:REVIEW 10/21/2019 SI:FEVER . SEPSIS . UTI . UNCONTROLLED DM. HYPERGLYCEMIA. 98.6 85 18 114/63 94% ON RA IS:HEPARIN SQ BID LOTENSIN PO QD KLONOPIN OP BID DEPAKOTE PO QHS ACTOS PO QD STARLIX PO TIAC METFORMIN PO BID NOVOLOG SQ AC&HS ACTOS PO QD JANUVIA PO AC SYNTHROID PO QAM \: 3E MED SURG UNIT DCP: HOME WHEN STABLE CASE MANAGEMENT:REVIEW 10/22/2019 SI:FEVER . SEPSIS . UTI . UNCONTROLLED DM. HYPERGLYCEMIA. 97.7 113 19 150/85 99% ON RA IS:HEPARIN SQ BID LOTENSIN PO QD KLONOPIN OP BID DEPAKOTE PO QHS ACTOS PO QD STARLIX PO TIAC METFORMIN PO BID NOVOLOG SQ AC&HS ACTOS PO QD JANUVIA PO AC SYNTHROID PO QAM \: 3E MED SURG UNIT DCP: HOME WHEN STABLE PLAN: DISCHARGE IN AM CASE MANAGEMENT:REVIEW 10/23/2019 SI:FEVER . SEPSIS . UTI . UNCONTROLLED DM. HYPERGLYCEMIA. 97.3 87 18 105/70 95% ON RA IS:HEPARIN SQ BID LOTENSIN PO QD KLONOPIN OP BID DEPAKOTE PO QHS ACTOS PO QD STARLIX PO TIAC METFORMIN PO BID NOVOLOG SQ AC&HS ACTOS PO QD JANUVIA PO AC SYNTHROID PO QAM \: 3E MED SURG UNIT DCP: HOME WHEN STABLE PLAN: DISCHARGE HELD D/T SEIZURE ACTIVITY CASE MANAGEMENT:REVIEW 10/24/2019 SI:FEVER . SEPSIS . UTI . UNCONTROLLED DM. HYPERGLYCEMIA. 98.3 82 18 178/102 100% ON RA IS:HEPARIN SQ BID LOTENSIN PO QD KLONOPIN OP BID DEPAKOTE PO QHS ACTOS PO QD STARLIX PO TIAC METFORMIN PO BID NOVOLOG SQ AC&HS ACTOS PO QD JANUVIA PO AC SYNTHROID PO QAM \: 3E MED SURG UNIT DCP: HOME WHEN STABLE PLAN: MONITOR FOR SEIZURE ACTIVITY DISCHARGE IN AM IF CLEARED NO SEIZURE ACTIVITY
--- NOTE | 2019-10-25 15:45 | NUR ---
NURSE NOTES: Patient discharged in stable condition to board and care accompanied by caregiver Maren. ID band removed. IV line removed. No new skin issues noted. Belongings accounted for. Discharge instructions given to caregiver. Wheeled to lobby by TATYANA.
--- NOTE | 2019-10-26 16:03 | Discharge Summary ---
Discharge Summary Discharge Summary _ DATE OF ADMISSION: 10/13/2019 DATE OF DISCHARGE: 10/25/2019 DISCHARGED BY: Dr. Hoffman REASON FOR ADMISSION: 54 years old male with past medical history of diabetes mellitus, seizure disorder, developmental delay, hypothyroidism, chronic kidney disease, proteinuria, presented to the hospital from Board and Care due to hyperglycemia. Patient was noted for the past week to have uncontrolled blood sugar. Patient had multiply visits to different hospital when he was treated with insulin and then was sent back home. This morning blood sugar was very high . Subsequently patient was brought to emergency department for further evaluation and management. Shortly after initial evaluation patient was admitted to the hospital with uncontrolled diabetes and possible urinary tract infection. No fevers or chills. No nausea or vomiting. No loss of consciousness. Laboratory work-up revealed mild leukocytosis with WBC 11.8, hemoglobin 12.3 , hematocrit 36.7 ,stable platelet count. Sodium 129, BUN 23, creatinine 2.0 . Glucose 471, anion gap 15 . Potassium 4.0 . Albumin 2.1 Acetone level was negative. Urinalysis revealed moderate bacteria , borderline pyuria, +1 leukocyte esterase , and positive nitrate. CONSULTANTS: neurologist Dr. Mora pulmonary Dr. Velarde ID specialist Dr. Gutierrez Library Media Specialist Dr. Boateng [facility] COURSE: Patient admitted to medical surgical floor. Patient started on generous IV hydration. Blood sugar was managed as per polymer materials consultant recommendations : with metformin ,Januvia , Actos and Starlix. Sliding scale of insulin provided as needed. Hemoglobin A1c- 11.4, clearly not at goal. TSH stable, current dose of levothyroxine was continued. Urine culture revealed E. coli ESBL Antibiotic regimen optimized per ID specialist. Patient was on the IV antibiotic while in the hospital and changed to oral upon discharge. Blood cultures were negative. Leukocytosis and low-grade fever nt resolved. DVT prophylaxis provided. Seizure precaution maintained. Depakote continued. No evidence of seizure activity while in the hospital. Statin continued. Blood pressure was managed with calcium channel tuan. Clonidine was on board as needed for blood pressure spikes. DVT prophylaxis provided. Renal parameters and electrolytes were closely monitored. Electrolytes corrected as needed . Prior to discharge sodium up to 138. Creatinine from 2.0 down to 1.2 . Acute kidney injury was likely due to hyperglycemia and r dehydration , and resolved with IV hydration. Neurologist seen the patient for seizure disorder. Depakote level was therapeutic. Neurologist recommended consider EEG Patient undergone video swallow evaluation, which revealed high silent aspiration risk. Diet texture provided as per speech therapist recommendation with strict aspiration precautions. Patient clinically stabilized and was ready for discharge. FINAL DIAGNOSES: Sepsis Hyperglycemia associated with diabetes mellitus, likely due to underlying infection Diabetes mellitus [id number]/ hemoglobin A1c 11.4 Acute kidney injury on chronic renal insufficiency Dehydration Hypothyroidism E. coli ESBL UTI Seizure disorder Morbid obesity Dysphagia Developmental delay Morbid obesity DISCHARGE MEDICATIONS: See Medication Reconciliation list. DISCHARGE INSTRUCTIONS: Patient was discharged to Board and Care. Follow up with primary care provider in one week. I have been assigned to dictate discharge summary for this account. I was not involved in the patient's management. Genia Shannon NP Oct 26, 2019 16:03
--- NOTE | 2019-11-01 13:23 | Coder Physician Query ---
Clarification is required for compliance, coding accuracy, and to reflect severity of illness for this patient. Dear Dr. DURAN Date:11/01/19 [employer] Helper: Alma Delia Pedroza, JEFF SEPSIS QUERY Hyperglycemia associated with diabetes mellitus, likely due to underlying infection On admission from the emergency department, WBC of 11, Urine culture revealed E. coli ESBL Antibiotic regimen optimized per ID specialist. Patient was on the IV antibiotic while in the hospital and changed to oral upon discharge. Blood cultures were negative. Leukocytosis and low-grade fever nt resolved. DR LEBRON PROGRESS NOTES: Assessment: Sepsis,SP Fever, recurrent; SP Leukocytosis, recurrent- SP UTI A posssible diagnois of SEPSIS was made in the medical record by Infectious Disease DR. LEBRON progress notes. Upon review, it is difficult to determine whether this diagnosis has been ruled in, ruled out,or is still being worked up. Please indicate below the status of the SEPSIS diagnosis. [] Treated and resolve [x] Presumed and treated [] Currently under treatment [] Still being worked-up [] Ruled out Present on Admission: [x] Yes [] No [] Clinically Undetermined Physician signature Date Please also document in your Progress Notes and/or Discharge Summary and indicate if the condition was present on admission. LAURA
== END 2019-10-25 16:05 | disposition home or self-care (01) | DRG 872 ==
LOC: EMR 20:07 → 4E 10-13 00:17 → EDBEDREQ 10-13 00:26 → 3E 10-14 06:58 → 4E 10-19 07:43
DX: A41.9 Sepsis, unspecified organism (principal); N17.9 Acute kidney failure, unspecified; N39.0 Urinary tract infection, site not specified; Z16.12 Extended spectrum beta lactamase (ESBL) resistance; G40.89 Other seizures; E11.65 Type 2 diabetes mellitus with hyperglycemia; E86.0 Dehydration; F79 Unspecified intellectual disabilities; E03.9 Hypothyroidism, unspecified; E66.01 Morbid (severe) obesity due to excess calories; B96.20 Unspecified Escherichia coli [E. coli] as the cause of diseases classified elsewhere; N18.9 Chronic kidney disease, unspecified; Z79.84 Long term (current) use of oral hypoglycemic drugs; E11.22 Type 2 diabetes mellitus with diabetic chronic kidney disease; E78.5 Hyperlipidemia, unspecified
CPT/HCPCS: 36415; 71045; 74230; 80048; 80053; 80150; 80164; 81003; 82009; 82962; 83036; 83735; 84100; 84439; 84443; 85007; 85025; 85651; 86140; 86710; 87040; 87081; 87086; 87181; 93005; 96360; 96361; 99285; J1815; J7030